=== PATIENT | male | born 1970 | race Caucasian/White ===

== ENCOUNTER 2021-03-15 13:12 | Emergency (ER) | payer OTHER, SELFPAY ==
--- NOTE | ~2021-03-15 | XR_ITS ---
EXAMINATION: XR CHEST CLINICAL INFORMATION: Cough COMPARISON: Chest radiographs 02/11/2011, 10/05/2010 TECHNIQUE: Frontal view of the chest was obtained. FINDINGS: There is no lobar or segmental airspace consolidation or definite groundglass opacity. Bronchovascular markings right infrahilar region appears similar to prior studies. The costophrenic angles are well defined. The heart is normal in size. The vascularity is normal. No acute bony abnormality. XR/XR chest 1V IMPRESSION: Unremarkable examination.
[2021-03-15 13:58] VITALS: BP 119/81; PULSE 65; RESP 18; TEMP 36.8; O2SAT 98; BMI 27.6
--- NOTE | 2021-03-15 15:06 | ED.GENADULT ---
HPI - General Adult General Chief complaint: General Medical Stated complaint: cp Time Seen by Provider: 03/15/21 15:06 Source: patient Mode of arrival: ambulatory Limitations: no limitations History of Present Illness HPI narrative: patient states 2 weeks ago he developed a URI and now producing a lot of phlegm. He also has upper back pain. He states his sputum is green with slight blood. Patient vaccinated against COVID but not influenza. Onset (ago): week(s) Severity: mild Pain Consistency: intermittent Associated symptoms: denies other symptoms Related Data Previous Rx's Medication Instructions Recorded cyclobenzaprine 10 mg tablet 10 mg PO TID #10 tab 03/15/21 naproxen 500 mg tablet (Naprosyn) 500 mg PO BID #20 tab 03/15/21 Allergies Allergy/AdvReac Type Severity Reaction Status Date / Time No Known Allergies Allergy Verified 03/15/21 13:57 Review of Systems Constitutional: Constitutional: Reports no additional constitutional complaints Eyes: Eyes: Reports no additional eye complaints ENT: Denies dizziness Cardiovascular: Cardiovascular: Reports no additional cardiovascular complaints Respiratory: Respiratory: Reports as per HPI Gastrointestinal: Gastrointestinal: Reports no additional gastrointestinal complaints Musculoskeletal: Musculoskeletal: Reports no additional musculoskeletal complaints Integumentary/Breasts: Skin/Breast: Denies rash Neurologic: Reports system reviewed and no additional complaints, except as documented, Denies dizziness and Denies Sensory deficit (Neuro) Psychiatric: Psychiatric: Denies anxiety PMFSH Past Medical History Medical History Asthma Back pain GERD (gastroesophageal reflux disease) H/O: Sam's palsy Social History Social History Advance Directives: No Advance Directives Information Provided: Yes Physical Exam Vital Signs: Vital Signs: Last Vital Signs Temp 98.3 F 03/15/21 13:58 Pulse 65 03/15/21 13:58 Resp 18 03/15/21 13:58 BP 119/81 03/15/21 13:58 Pulse Ox 98 03/15/21 13:58 Body Mass Index 27.6 Const: General: healthy appearing Nutritional Appearance: average body habitus Orientation/consciousness: oriented to person and patient oriented x3 Limitations: no limitations HENMT: Head: Yes normal to inspection Ears: external ears normal General nose exam: Normal external nose present Mouth: Normal oral and palatal mucosa present and oropharynx normal Throat: Yes posterior oropharynx normal Eyes: General: appearance normal, both eyes and all related structures Neck: Other: supple, left trapezius tenderness Chest: Chest palpation & inspection: normal inspection of the chest Resp: Auscultation: clear to auscultation bilaterally Cardio: Jugular venous distension: no JVD Rate: regular rate Rhythm: regular rhythm Heart sounds: S1 normal heart sound present and S2 normal heart sound present GI: Inspection: Yes normal to inspection Palpation (GI): Soft to palpation, nontender and No hepatosplenomegaly present Auscultation: normal bowel sounds : General: Yes no CVA tenderness Back/Spine/Pelvis: Back: no CVA tenderness Skin: General skin exam: no rashes or lesions noted Neuro: General: oriented to person and patient oriented x3 Cranial nerves: Yes CN's II-XII intact bilaterally Motor exam (neuro): 5/5 motor strength present throughout Sensory Exam: No Sensory deficit (Neuro) Extrem: General: Yes normal to inspection Psych: Appearance: grossly normal Course Reevaluation(s) Reevaluation #1: patient with viral illness and left trapezius strain, COVID negative, xray negative will dc home Time: 16:49 Medical Decision Making Lab Data Labs: Lab Results 03/15/21 Range/Units 15:19 COVID-19 ([facility]) Negative (Negative) COVID-19 Clin Com See Note Imaging Data Chest x-ray: Radiologist's impression: FINDINGS: There is no lobar or segmental airspace consolidation or definite groundglass opacity. Bronchovascular markings right infrahilar region appears similar to prior studies. The costophrenic angles are well defined. The heart is normal in size. The vascularity is normal. No acute bony abnormality. XR/XR chest 1V IMPRESSION: Unremarkable examination. ? ECG Data Attestation: I personally reviewed and interpreted this ECG as follows: Interpretation: normal sinus rate [address] or twave changes Discharge Plan Discharge Clinical Impression: Upper respiratory infection Qualifiers: URI type: unspecified viral URI Qualified Code(s): J06.9 - Acute upper respiratory infection, unspecified Neck muscle strain Qualifiers: Encounter type: initial encounter Qualified Code(s): S16.1XXA - Strain of muscle, fascia and tendon at neck level, initial encounter Patient Disposition: Home, Self-Care Instructions: Cervical Strain (ED), Upper Respiratory Infection (ED) Prescriptions: New cyclobenzaprine 10 mg tablet 10 mg PO TID Qty: 10 RF: 0 naproxen [Naprosyn] 500 mg tablet 500 mg PO BID Qty: 20 RF: 0 Referrals: Hina Evans MD [Primary Care Provider] - 1 week
--- NOTE | 2021-03-15 15:14 | ECG_ITS ---
Test Reason : GENERAL MED Blood Pressure : / mmHG Vent. Rate : 056 BPM Atrial Rate : 056 BPM P-R Int : 148 ms QRS Dur : 096 ms QT Int : 420 ms P-R-T Axes : 054 041 034 degrees QTc Int : 405 ms Sinus bradycardia Otherwise normal ECG When compared with ECG of 05-OCT-2010 20:50, No significant change was found Referred By: Henry Russo Electronically Signed By:RONAK RODRIGUEZ MD
[2021-03-15 15:50] LABS: COVID-19 Test Negative (Negative)
[2021-03-15] MEDS: Ibuprofen 800 MG TABLET PO (16:28)
== END 2021-03-15 17:09 | disposition home or self-care (01) ==
PROVIDERS: Emergency Provider Emergency Medicine; PCP Family Medicine
DX: J06.9 Acute upper respiratory infection, unspecified (principal); S16.1XXA Strain of muscle, fascia and tendon at neck level, initial encounter; X58.XXXA Exposure to other specified factors, initial encounter; Y93.9 Activity, unspecified; Y92.9 Unspecified place or not applicable; Y99.9 Unspecified external cause status; Z20.822 Contact with and (suspected) exposure to COVID-19
CPT/HCPCS: 36415; 71045; 87635; 93005; 99283; 99284

== ENCOUNTER 2023-05-26 12:12 | Outpatient (REF) | payer OTHER, SELFPAY ==
[2023-05-26 13:29] LABS: Estimated Average Glucose 114 mg/dL; Hemoglobin A1c % 5.6 % (<6.0)
[2023-05-26 14:32] LABS: Alanine Aminotransferase 33 U/L (0-40); Albumin Level 4.5 g/dL (3.5-5.0); Alkaline Phosphatase 54 U/L (39-117); Anion Gap 13 (12-20); Aspartate Amino Transferase 22 U/L (5-37); Bilirubin Total 0.4 mg/dL (0.0-1.0); Blood Urea Nitrogen 14 mg/dL (9-16); Calcium 9.8 mg/dL (8.4-10.2); Carbon Dioxide 29 mmol/L (22-29); Chloride 104 mmol/L (96-108); Cholesterol 156 mg/dL (<200); Estimated Glomerular Filt Rate > 60; Glucose Random 97 mg/dL (60-115); HDL Cholesterol 49 mg/dL (>40); LDL Cholesterol Calculated 65 mg/dL (<100); Potassium 4.2 mmol/L (3.3-5.1); Sodium 142 mmol/L (135-145); Total Protein 7.5 g/dL (6.5-8.0); Triglycerides 213 mg/dL (<150)
[2023-05-26 14:48] LABS: Reflex LDLD? No
[2023-05-26 14:51] LABS: TSH reflex Free T4 2.87 uIU/mL (0.32-4.0); Vitamin D 25-OH Total 21.9 ng/mL (>30)
== END 2023-05-26 12:13 | disposition home or self-care (01) ==
LOC: HO.HHCL 12:12
PROVIDERS: Visit Provider Family Medicine
DX: I10 Essential (primary) hypertension (principal); R73.03 Prediabetes; E55.9 Vitamin D deficiency, unspecified; M54.50 Low back pain, unspecified; G89.29 Other chronic pain
CPT/HCPCS: 36415; 80053; 80061; 82306; 83036; 84443

== ENCOUNTER 2024-02-10 10:13 | Outpatient (REF) | payer OTHER, SELFPAY ==
[2024-02-10 12:05] LABS: Alanine Aminotransferase 55 U/L (0-40); Albumin Level 4.4 g/dL (3.5-5.0); Alkaline Phosphatase 51 U/L (39-117); Anion Gap 13 (12-20); Aspartate Amino Transferase 33 U/L (5-37); Bilirubin Total 0.7 mg/dL (0.0-1.0); Blood Urea Nitrogen 17 mg/dL (9-16); Calcium 9.6 mg/dL (8.4-10.2); Carbon Dioxide 26 mmol/L (22-29); Chloride 106 mmol/L (96-108); Cholesterol 191 mg/dL (<200); Estimated Glomerular Filt Rate > 60; Glucose Random 105 mg/dL (60-115); HDL Cholesterol 52 mg/dL (>40); LDL Cholesterol Calculated 96 mg/dL (<100); Potassium 3.8 mmol/L (3.3-5.1); Sodium 141 mmol/L (135-145); Total Protein 7.2 g/dL (6.5-8.0); Triglycerides 215 mg/dL (<150)
[2024-02-10 12:11] LABS: Estimated Average Glucose 117 mg/dL; Hemoglobin A1C 151.5033 umol/L; Hemoglobin A1c % 5.7 % (<6.0); Total Hemoglobin (HGBA1C) 3870.3062 umol/L
[2024-02-10 12:53] LABS: Hepatitis A Antibody IgG REACTIVE (Nonreactive); ~Hepatitis A Antibody IgG 5.73 S/CO (0.00-0.99)
[2024-02-10 12:57] LABS: ~Hepatitis B Surface Antibody NONREACTIVE (Nonreactive)
[2024-02-10 13:36] LABS: Reflex LDLD? No
== END 2024-02-10 10:14 | disposition home or self-care (01) ==
LOC: HO.HHCL 10:13
PROVIDERS: Visit Provider Family Medicine
DX: I10 Essential (primary) hypertension (principal); E78.5 Hyperlipidemia, unspecified; R73.03 Prediabetes
CPT/HCPCS: 36415; 80053; 80061; 83036; 86706; 86708

== ENCOUNTER 2024-03-31 08:58 | Emergency (ER) | payer OTHER, SELFPAY ==
--- NOTE | ~2024-03-31 | CT_ITS ---
EXAMINATION: CT MASTOID WITHOUT CONTRAST CLINICAL INFORMATION: Left mastoid pain with otitis COMPARISON: None TECHNIQUE: Multidetector CT acquisition of the temporal bones is obtained without contrast. Multiplanar reformats are acquired and utilized for image interpretation. This CT examination was performed using dose optimization techniques as appropriate, variously including the following: *Automated exposure control *Adjustment of mA and/or kV according to patient size (this includes techniques or standardized protocols for targeted exams where dose is matched to indication/reason for exam; i.e. extremities or head) *Use of iterative reconstruction technique FINDINGS: Right: The pinna is present. The external auditory canal is clear. The tympanic membrane is unremarkable. The Prussak space is not enlarged. The scutum is intact. The ossicular chain is intact. The mastoid air cells are clear. The inner ear structures including the cochlea, vestibule, and semicircular canals are unremarkable. There is no widening of the vestibular or cochlear aqueducts. The internal auditory canal appear unremarkable. The cranial nerve VII follows a normal course. Left: The pinna is present. The external auditory canal is clear. There is slight retraction of the tympanic membrane. Soft tissue density opacifying the left middle ear and extending into the mastoid air cells and the epitympanum, surrounding the ossicles which remains intact. The mastoid septations remaining intact. There is thinning and dehiscence of the tegmen tympani. The Prussak space is also opacified however not enlarged. The scutum remains intact. The inner ear structures including the cochlea, vestibule, and semicircular canals are unremarkable. There is no widening of the vestibular or cochlear aqueducts. The internal auditory canal appear unremarkable. The cranial nerve VII follows a normal course. Normal temporomandibular joints. CT/CT mastoid IMPRESSION: Findings most consistent with left otomastoiditis. There is thinning and dehiscence of the tegmen tympani. Electronically signed by: Apurva Flood MD 03/31/2024 04:42 PM EST
[2024-03-31 09:04] VITALS: BP 177/112; PULSE 101; RESP 18; TEMP 36.2; O2SAT 95; BMI 32.6
--- NOTE | 2024-03-31 09:39 | PC.NURSE ---
Patient arrived from home with complaints of right sided ear pain and pressure. was dx with ear infection at [facility] last week and took po abt. Patient reports that he completed dose but then this weekend was at the store and become dizzy , vomited, and had diarrhea. Was brought to [facility] and had a full stroke work up including ct and mri. 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 When asked if it was for [place] palsey patient states yes. CT at [facility] shoed something was wrong with his nose and he needs to see an ENT. Currently denies dizziness, or pain. took tylenol this am with good effect.
[2024-03-31 14:00] VITALS: BP 142/90; PULSE 84; RESP 18; TEMP 37.1; O2SAT 96
--- NOTE | 2024-03-31 14:01 | ED.EAR ---
HPI - Ear Problem General Chief complaint: Ear Problems Stated complaint: Ear ache, facial numbness Time Seen by Provider: 03/31/24 13:44 Source: patient Mode of arrival: ambulatory Limitations: no limitations History of Present Illness ED Provider: Dr. Corry García HPI Narrative: Patient comes to the emergency room complaining of left-sided facial droop, left ear pain. Patient states that about a 10 days ago, he was diagnosed with a left ear infection. Then, 4 days ago, patient had ongoing left ear pain, dizziness, tinnitus, nausea and vomiting. Patient called 911, was taken to [facility]. Patient was worked up for a CVA. Patient states that it did both CT scans and MRIs and both were negative for stroke. Patient was not discharged home. Patient states that this morning, patient noted that he has left-sided facial droop. Patient is still complaining of ongoing and worsening left-sided ear pain and pain behind the left ear. Related Data Previous Rx's ?Medication ?Instructions ?Recorded cyclobenzaprine 10 mg tablet 10 mg PO TID #10 tabs 03/15/21 naproxen 500 mg tablet (Naprosyn) 500 mg PO BID #20 tabs 03/15/21 clindamycin HCl 150 mg capsule 150 mg PO TID 10 days #30 caps 03/31/24 clindamycin HCl 300 mg capsule 300 mg PO TID 10 days #30 caps 03/31/24 ibuprofen 600 mg tablet 600 mg PO TID PRN fever or pain 03/31/24 #30 tabs prednisone 20 mg tablet 60 mg (3 x 20 mg) PO DAILY 10 days 03/31/24 #30 tabs Allergies Allergy/AdvReac Type Severity Reaction Status Date / Time No Known Allergies Allergy Verified 03/31/24 09:12 Review of Systems Review of Systems: Constitutional : No Weight loss, No Fever, No Chills, No Night Sweats, No Fatigue, No Malaise ENT/Mouth : No Hearing loss, complaining of left-sided Ear Pain, No Nasal Congestion, No Sinus Pain, No Hoarseness, No sore throat, No Rhinorrhea, No Swallowing Difficulty Eyes: No Eye Pain, No Swelling, No Redness, No Foreign Body, No Discharge, No Vision Changes Cardiovascular : No Chest Pain, No SOB, No Dyspnea on Exertion, No Orthopnea, No Edema, No Palpitations Respiratory : No Cough, No Sputum, No Wheezing, No Smoke Exposure, No Dyspnea Gastrointestinal : No Nausea, No Vomiting, No Diarrhea, No Constipation, No abdominal Pain, No Hematochezia, No Melena Genitourinary : no irregular bleeding, No Dysuria, No Urinary Frequency, No Hematuria, No Urinary Incontinence, No Urgency, No Flank Pain, No Urinary Flow Changes, No Hesitancy Musculoskeletal : No joint pain, No Myalgias, No Joint Swelling Skin : No Skin Lesions, No rash Neuro : No Weakness, No Numbness, No Paresthesias, No Loss of Consciousness, No Dizziness, No Headache, complaining of SI symmetric smile on the left Psych : No Anxiety/Panic, No Depression, No SI/HI/AH/VH, No Social Issues, Heme/Lymph: No Bruising, No Bleeding,No Lymphadenopathy Endocrine : No Polyuria, No Polydipsia, No Temperature Intolerance [facility] Past Medical History Medical History H/O: Sam's palsy Back pain GERD (gastroesophageal reflux disease) Asthma Social History Social History Smoked in Last 30 Days: No Use of substances other than those prescribed or required for medical reasons: No Advance Directives: No Advance Directives Information Provided: Yes Physical Exam Vital Signs: Vital Signs: Last Vital Signs Temp 98.2 F 03/31/24 18:15 Pulse 77 03/31/24 18:15 Resp 18 03/31/24 18:15 BP 136/93 H 03/31/24 18:15 Pulse Ox 96 03/31/24 18:15 O2 Del Method Room Air 03/31/24 18:15 BMI result Body Mass Index 32.6 Const: Other: Appearance: Alert. Oriented X3. No acute distress. Eyes: Pupils equal, round and reactive to light. ENT: Pharynx normal. Left ear erythematous tympanic membrane, no rupture. Pain to palpation on the mastoid bone on the left Neck: Normal inspection. Neck supple. No lymph nodes noted. No crepitus CVS: Normal heart rate and rhythm. Pulses normal. Normal S1 and S2 Respiratory: No respiratory distress. Breath sounds normal. No Wheezing. No rales Abdomen: Soft and nontender. No rigidity. No distention. Skin: Skin warm and dry. Normal skin color. Normal skin turgor. Extremities: No lower extremity edema. No Lacerations. No Rash Neuro: Oriented X 3. Patient has left-sided mouth droop, unable to fully close his left eye, unable to move his left eyebrow or found the forehead on the left Psych: calm, cooperative, normal affect Medications Administered Discontinued Medications Generic Name Dose Route Start Last Admin Trade Name Jonesq PRN Reason Stop Dose Admin Amoxicillin/Clavulanate Potassium 500 mg 03/31/24 13:57 03/31/24 14:16 Amoxicillin/Potassium Clav 500 Mg Tablet PO 03/31/24 13:58 500 mg ONCE ONE Administration Clindamycin Phosphate 600 mg in 50 mls @ 100 mls/hr 03/31/24 17:22 03/31/24 18:33 Cleocin IV 03/31/24 17:51 Infused ONCE ONE Infusion Ketorolac Tromethamine 30 mg 03/31/24 17:22 03/31/24 17:46 Ketorolac Tromethamine 30 Mg/Ml Vial IVPUSH 03/31/24 17:23 30 mg ONCE ONE Administration Prednisone 60 mg 03/31/24 13:57 03/31/24 14:15 Prednisone 20 Mg Tablet PO 03/31/24 13:58 60 mg ONCE ONE Administration Valacyclovir HCl 1,000 mg 03/31/24 13:57 03/31/24 14:15 Valacyclovir Hcl 1,000 Mg Tablet PO 03/31/24 13:58 1,000 mg ONCE ONE Administration Medical Decision Making Medical Decision Making MDM Narrative: -I discussed with the patient that 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 Patient states that several years ago he had Sam's palsy on the right side. Also, patient has ongoing otitis media. Now complaining of pain in the mastoid bone, CT scan pending -patient was given p.o. prednisone, Augmentin and balance acyclovir -CT scan report shows findings most consistent with left otomastoiditis. There is a thinning and adhesions of the tegment tympani -patient was given 600 mg of IV clindamycin -I discussed the patient with Dr. Miller from [facility] who reviewed the patient's imaging. The CT scan is definitely abnormal, however unclear if if this is true mastoiditis, neoplasm is in the differential . Recommendations: No need for transfer, extremely important that the patient takes prednisone 60 mg daily for 10 days, clindamycin. Patient will receive a phone call on Friday , 2 days from today to confirm his appointment, likely to be seen early next week. Develops passively is likely related to the inflammation from the bacterial infection, antiviral/valacyclovir not indicated -I discussed the above-mentioned with the patient, patient agrees with plan. Differential Diagnosis Differential Diagnoses: The differential diagnosis associated with the presentation includes (Otitis media) Admission/Observation Consideration of admission/observation: Escalation of care including admission/observation considered Consult Healthcare Provider Management of the patient was discussed with: Recreation Program Coordinator Lab Data MDM Lab Attestation statement: I reviewed the patient's lab results. 03/31/24 17:42 03/31/24 17:42 Labs: Lab Results 03/31/24 03/31/24 Range/Units 17:42 17:53 WBC 8.3 (4.8-10.8) X10*3/uL RBC 5.49 (4.60-5.80) X10*6/uL Hgb 16.3 (14.0-18.0) g/dl Hct 46.8 (42.0-52.0) % MCV 85.2 (80.0-98.0) fL MCH 29.7 (27.0-33.0) pg MCHC 34.8 (31.0-36.0) g/dl RDW 13.0 (11.0-16.0) % Plt Count 241 (160-400) X10*3/uL MPV 9.2 L (9.4-12.4) fL Immature Gran % (Auto) 0.2 (0.0-0.4) % Neut % (Auto) 80.9 H (45-73) % Lymph % (Auto) 17.0 L (20-40) % Chase % (Auto) 1.4 L (2-11) % Eos % (Auto) 0.1 (0-4) % Baso % (Auto) 0.4 (0-2) % Lymph # (Auto) 1.4 (1.2-4.9) X10*3/uL Chase # (Auto) 0.1 (0.1-1.2) X10*3/uL Eos # (Auto) 0.0 (0.0-0.4) X10*3/uL Baso # (Auto) 0.0 (0.0-0.2) X10*3/uL Abs Immat Gran (auto) 0.02 (0.00-0.03) X10*3/uL Absolute Neuts (auto) 6.7 (2.0-8.3) x10*3/uL Absolute Nucleated RBC 0.000 (0.0-0.012) X10*3/uL Nucleated RBC % (auto) 0.0 (0.0-0.2) /100WBC ESR 12 (0-15) MM/HR Sodium 139 (135-145) mmol/L Potassium 4.4 (3.3-5.1) mmol/L Chloride 102 (96-108) mmol/L Carbon Dioxide 24 (22-29) mmol/L Anion Gap 17 (12-20) BUN 14 (9-16) mg/dL Creatinine 1.00 (0.5-1.4) mg/dL Estim Creat Clear Calc 82.5 Estimated GFR > 60 Random Glucose 118 H (60-115) mg/dL Lactic Acid 1.8 (0.5-2.0) mmol/L Calcium 9.7 (8.4-10.2) mg/dL Total Bilirubin 0.7 (0.0-1.0) mg/dL Direct Bilirubin 0.2 (0.0-0.5) mg/dL AST 60 H (5-37) U/L ALT 69 H (0-40) U/L Alkaline Phosphatase 57 (39-117) U/L C-Reactive Protein 0.59 H (< or = 0.50) mg/dL Total Protein 7.9 (6.5-8.0) g/dL Albumin 4.4 (3.5-5.0) g/dL COVID-19 ([facility]) Negative (Negative) COVID-19 Clin Com See Note Influenza Type A ([facility]) Negative (Negative) Influenza Type B ([facility]) Negative (Negative) Influenza A & B Note See Note Independent Interpretation I performed an independent interpretation of an: CT Scan Radiology Impression Discussion of test interpretation with radiology: I have reviewed the radiologist's reading. Radiologist Impression: Multidetector CT acquisition of the temporal bones is obtained without contrast. Multiplanar reformats are acquired and utilized for image interpretation. This CT examination was performed using dose optimization techniques as appropriate, variously including the following: *Automated exposure control *Adjustment of mA and/or kV according to patient size (this includes techniques or standardized protocols for targeted exams where dose is matched to indication/reason for exam; i.e. extremities or head) *Use of iterative reconstruction technique FINDINGS: Right: The pinna is present. The external auditory canal is clear. The tympanic membrane is unremarkable. The Prussak space is not enlarged. The scutum is intact. The ossicular chain is intact. The mastoid air cells are clear. The inner ear structures including the cochlea, vestibule, and semicircular canals are unremarkable. There is no widening of the vestibular or cochlear aqueducts. The internal auditory canal appear unremarkable. The cranial nerve VII follows a normal course. Left: The pinna is present. The external auditory canal is clear. There is slight retraction of the tympanic membrane. Soft tissue density opacifying the left middle ear and extending into the mastoid air cells and the epitympanum, surrounding the ossicles which remains intact. The mastoid septations remaining intact. There is thinning and dehiscence of the tegmen tympani. The Prussak space is also opacified however not enlarged. The scutum remains intact. The inner ear structures including the cochlea, vestibule, and semicircular canals are unremarkable. There is no widening of the vestibular or cochlear aqueducts. The internal auditory canal appear unremarkable. The cranial nerve VII follows a normal course. Normal temporomandibular joints. CT/CT mastoid IMPRESSION: Findings most consistent with left otomastoiditis. There is thinning and dehiscence of the tegmen tympani. Critical Care Time Critical Care Time Critical Care Time: Yes Total Critical Care Time: 75 Attestation: I have personally provided critical care time. Time includes review of lab data, radiology results, discussion with consultants, and monitoring for potential decompensation. Intervention performed as documented. Discharge Plan Discharge Clinical Impression: Otitis media, Sam's palsy Patient Disposition: Home, Self-Care Instructions: Sam Palsy (ED), Ear Infection (ED) Additional Instructions: Please follow-up with your primary care physician tomorrow. At night, make sure that you use tape to help your left eye to stay closed. You may remove the tape in the morning. If you have any worsening or new symptoms, please return to the emergency room or call 911 Prescriptions: New clindamycin HCl 300 mg capsule 300 mg PO TID 10 Days Qty: 30 0RF Rx Instructions: 450 mg t.i.d. clindamycin HCl 150 mg capsule 150 mg PO TID 10 Days Qty: 30 0RF Rx Instructions: totaal 450 mg tid prednisone 20 mg tablet 60 mg PO DAILY 10 Days Qty: 30 0RF ibuprofen 600 mg tablet 600 mg PO TID PRN (Reason: fever or pain) Qty: 30 0RF No Action cyclobenzaprine 10 mg tablet 10 mg PO TID Qty: 10 0RF naproxen [Naprosyn] 500 mg tablet 500 mg PO BID Qty: 20 0RF Interventions: ED Discharge Assessment Last Done: 03/31/24 18:15 Print Language: Israeli
[2024-03-31] MEDS: valACYclovir HCL 1,000 MG TABLET 1000 MG PO (14:15)
[2024-03-31] MEDS: predniSONE 20 MG TABLET 60 MG PO (14:15)
[2024-03-31] MEDS: Amoxicillin/Potassium Clav 500 MG TABLET PO (14:16)
[2024-03-31 16:25] VITALS: BP 139/87; PULSE 81; RESP 17; TEMP 36.8; O2SAT 97
[2024-03-31] MEDS: Ketorolac Tromethamine 30 MG/ML VIAL IVPUSH (17:46)
[2024-03-31 17:49] LABS: MANUAL DIFF FLAG NO
[2024-03-31 17:50] VITALS: BP 136/93; PULSE 77; RESP 18; TEMP 36.8; O2SAT 96
[2024-03-31 17:50] LABS: Basophils Percent Auto 0.4 % (0-2); Eosinophils Percent Auto 0.1 % (0-4); Hematocrit 46.8 % (42.0-52.0); Hemoglobin 16.3 g/dl (14.0-18.0); Imm Gran Abs Auto 0.02 X10*3/uL (0.00-0.03); Imm Gran Pct Auto 0.2 % (0.0-0.4); Lymphocytes Absolute Auto 1.4 X10*3/uL (1.2-4.9); Mean Corpuscular HGB Conc 34.8 g/dl (31.0-36.0); Mean Corpuscular Hemoglobin 29.7 pg (27.0-33.0); Mean Corpuscular Volume 85.2 fL (80.0-98.0); Mean Platelet Volume 9.2 fL (9.4-12.4); Monocytes Absolute Auto 0.1 X10*3/uL (0.1-1.2); Monocytes Percent Auto 1.4 % (2-11); Neutrophils Absolute Auto 6.7 x10*3/uL (2.0-8.3); Neutrophils Percent Auto 80.9 % (45-73); Platelet Count 241 X10*3/uL (160-400); Red Blood Count 5.49 X10*6/uL (4.60-5.80); White Blood Count 8.3 X10*3/uL (4.8-10.8)
[2024-03-31] MEDS: Clindamycin Phosphate/D5W 600 MG/50 ML PIGGYBACK 100 MG IV (17:54)
--- NOTE | 2024-03-31 17:57 | PC.NURSE ---
20g iv placed in right ac, medicated per mar
[2024-03-31 17:59] LABS: Anion Gap 17 (12-20)
[2024-03-31 18:01] LABS: Lactic Acid 1.8 mmol/L (0.5-2.0)
[2024-03-31 18:03] LABS: Alanine Aminotransferase 69 U/L (0-40); Albumin Level 4.4 g/dL (3.5-5.0); Aspartate Amino Transferase 60 U/L (5-37); Bilirubin Direct 0.2 mg/dL (0.0-0.5); Bilirubin Total 0.7 mg/dL (0.0-1.0); Blood Urea Nitrogen 14 mg/dL (9-16); C Reactive Protein 0.59 mg/dL (< or = 0.50); Calcium 9.7 mg/dL (8.4-10.2); Carbon Dioxide 24 mmol/L (22-29); Chloride 102 mmol/L (96-108); Creatinine Clr Calc Pharmacy 82.5; Estimated Glomerular Filt Rate > 60; Glucose Random 118 mg/dL (60-115); Potassium 4.4 mmol/L (3.3-5.1); Sodium 139 mmol/L (135-145); Total Protein 7.9 g/dL (6.5-8.0)
--- NOTE | 2024-03-31 18:07 | PC.NURSE ---
Patient NPO, patient aware
[2024-03-31 18:15] VITALS: BP 136/93; PULSE 77; RESP 18; TEMP 36.8; O2SAT 96
[2024-03-31 18:16] LABS: Alkaline Phosphatase 57 U/L (39-117)
[2024-03-31 18:19] LABS: COVID-19 Test Negative (Negative); IDNOW Serial# 08D9AD1C; IDNOW Serial# 9DB6401D; Influenza A Negative (Negative); Influenza B2 Negative (Negative)
[2024-03-31 18:31] LABS: Erythrocyte Sedimentation Rate 12 MM/HR (0-15)
== END 2024-03-31 20:02 | disposition home or self-care (01) ==
PROVIDERS: Emergency Provider Emergency Medicine; PCP Family Medicine
DX: H66.92 Otitis media, unspecified, left ear (principal); G51.0 Bell's palsy; H92.02 Otalgia, left ear; Z03.818 Encounter for observation for suspected exposure to other biological agents ruled out; J45.909 Unspecified asthma, uncomplicated
CPT/HCPCS: 36415; 70481; 80048; 80076; 83605; 85025; 85652; 86140; 87040; 87502; 87635; 96365; 96375; 99284; J0736; J1885

== ENCOUNTER 2024-05-12 12:09 | Outpatient (REF) | payer OTHER, SELFPAY ==
[2024-05-12 13:38] LABS: Alanine Aminotransferase 78 U/L (0-40); Albumin Level 4.4 g/dL (3.5-5.0); Alkaline Phosphatase 54 U/L (39-117); Anion Gap 15 (12-20); Aspartate Amino Transferase 41 U/L (5-37); Bilirubin Direct 0.2 mg/dL (0.0-0.5); Bilirubin Total 0.7 mg/dL (0.0-1.0); Blood Urea Nitrogen 15 mg/dL (9-16); Calcium 9.5 mg/dL (8.4-10.2); Carbon Dioxide 27 mmol/L (22-29); Chloride 107 mmol/L (96-108); Cholesterol 128 mg/dL (<200); Estimated Glomerular Filt Rate > 60; Glucose Random 105 mg/dL (60-115); HDL Cholesterol 49 mg/dL (>40); LDL Cholesterol Calculated 43 mg/dL (<100); Potassium 3.6 mmol/L (3.3-5.1); Sodium 145 mmol/L (135-145); Total Protein 7.2 g/dL (6.5-8.0); Triglycerides 182 mg/dL (<150)
== END 2024-05-12 12:10 | disposition home or self-care (01) ==
LOC: HO.HHCL 12:09
PROVIDERS: Visit Provider Family Medicine
DX: E78.5 Hyperlipidemia, unspecified (principal); I10 Essential (primary) hypertension
CPT/HCPCS: 36415; 80048; 80061; 80076

== ENCOUNTER 2024-07-16 13:48 | Outpatient (REF) | payer OTHER, SELFPAY ==
--- OUTSIDE RECORDS SUMMARY | 2024-07-16 15:33 | XMS_ITS | Encounter Summary ---
Author Organization [employer] Address [address] [facility] [address] [place] [address] Care Team Providers Care Bag Cutter Name Role Phone Hina Evans MD Primary Care Provider [phone] John Hartley PharmD Unavailable [phone] Encounter Details Date Type Department Care Team ([facility] Contact Info) Description 03/13/2023 Orders Only [facility] PEDS [address] [place] [address] Nicole Fitzpatrick LPN Social History Tobacco Use Types Packs/Day Years Used Date Smoking Tobacco: Every Day Cigarettes Smokeless Tobacco: Never Comments:1 box can last him between 24 hours or 3 days. Alcohol Use Standard Drinks/Week Comments Never 0 (1 standard drink = 0.6 oz pur e alcohol) Sex and Gender Information Value Date Recorded Sex Assigned at Male 2022 10:19 AM EDT Legal Sex Male 10:19 AM EDT Gender Identity Male 2022 10:19 AM EDT Sexual Orientation Straight 2022 10 :19 AM EDT documented as of this encounter Plan of Treatment Upcoming Encounters Date Type Department Care Team (Late Contact Info) Description 07/21/2024 10:00 AM EDT Nurse Only [facility] MEDICINE [address], [place] [phone] 01/21/2025 1:00 PM EDT Medication Management [facility] MEDICINE [address], [place] [phone] John Hartley, PharmD [address] [place] [address] documented as of this encounter Visit Diagnoses Not on filedocumented in this encounter Care Teams Bag Cutter Relationship Specialty Start Date End Date Hina Evans MD [address], [place] [phone] PCP - General Family Medicine 05/05/18 John Hartley PharmD [address] [place] [address] Pharmacist Internal Medicine 09/10/23 documented as of this encounter
--- OUTSIDE RECORDS SUMMARY | 2024-07-16 15:33 | XMS_ITS | Encounter Summary ---
Author Organization [employer] Address 75 [facility] 7t [place] [address] Care Team Providers Care Envelope Press Operator Name Role Phone Hina Evans MD Primary Care Provider John Hartley PharmD Unavailable [phone] Encounter Details Date Type Department Care Team ([facility] st Contact Info) Description 06/06/2023 Orders Only [facility] [address] [place], [place] [phone] Hina Evans MD [address] [place], [place] [phone] Social History Tobacco Use Types Packs/Day Years Used Date Smoking Tobacco: Every Day Cigarettes Smokeless Tobacco: Never Comments:1 box can last him between 24 hours or 3 days. Alcohol Use Standard Drinks/Week Comments Not Currently 0 (1 standard drink = 0.6 oz pur e alcohol) oca Housing Stability Answer Date Recorded What is your housing situation today? I have shaji david 05/26/[address] you li ve. Do you have problems with any of the following? None of the above 05/26/2023 Food Insecurity Answer Date Recorded Within the past 12 months, y ou worried that your food would run out before you got money to buy more: Never True 05/26/2023 Within the past 12 months,th e food you bought just didn't last and you didn't have enough money to get more: Never True Transportation Answer Date Recorded In the past 12 months, has l ack of transportation kept you from medical appts, meetings, work or from getting things needed for daily living? No 05/26/2023 Utilities Answer Date Recorded In the past 12 months, has t he electric, gas, oil or water company threatened to shut off services in your home? No 05/26/2023 Depression Answer Date Recorded Patient Health Questionnaire-2 Score 0 05/26/2023 Sex and Gender Information Value Date Recorded Sex Assigned at Male 2022 10:19 AM EDT Legal Sex Male 10:19 AM EDT Gender Identity Male 2022 10:19 AM EDT Sexual Orientation Straight 2022 10 :19 AM EDT documented as of this encounter Plan of Treatment Upcoming Encounters Date Type Department Care Team (Late st Contact Info) Description 07/21/2024 10:00 AM EDT Nurse Only [facility] [address] [place] [address] 01/21/2025 1:00 PM EDT Medication Management [address] [address] John Hartley, PharmD [address] [place] [address] documented as of this encounter Visit Diagnoses Not on filedocumented in this encounter Care Teams Envelope Press Operator Relationship Specialty Start Date End Date Hina Evans MD [address] [place] [address] PCP - General Family Medicine 05/05/18 John Hartley, PharmD [address] [place] [address] Pharmacist Internal Medicine 09/10/23 documented as of this encounter
--- OUTSIDE RECORDS SUMMARY | 2024-07-16 15:33 | XMS_ITS | Encounter Summary ---
Author Organization [employer] [facility] Address 75 [facility] 7t [place] [address] Care Team Providers Care Project Economist Name Role Phone Hina Evans MD Primary Care Provider [phone] John Hartley PharmD Unavailable [phone] Reason for Referral * Imaging (Routine) - Closed Specialty Diagnoses / Procedures Referred By Contac t Referred To Contact Cardiology Diagnoses Pain in both lower extremities Claudication (CMS/HCC) Peripheral vascular disease (CMS/HCC) Procedures [facility] Lower Extremity Arterial Duplex Bilateral With Ashlie Hina Evans MD [address] [place] [address] Phone: tel: fax: [address] Phone: tel: fax: Referral ID Status Reason Start Date Expiration Date V isits Requested Visits Authorized [id number] Closed Perform Procedure 08/26/2023 08/25/2024 1 1 Encounter Details Date Type Department Care Team (Late st Contact Info) Description 08/26/2023 Orders Only [facility] [address] [place], [place] [phone] Hina Evans MD [address] [place], [place] [phone] Pain in both lower extremities (Primary Dx); Claudication (CMS/HCC); Peripheral vascular disease (CMS/HCC) Social History Tobacco Use Types Packs/Day Years Used Date Smoking Tobacco: Former Cigarettes Q uit: 06/02/2023 Smokeless Tobacco: Never Comments:1 box can last him between 24 hours or 3 days. Alcohol Use Standard Drinks/Week Comments Not Currently 0 (1 standard drink = 0.6 oz pur e alcohol) oca Depression Answer Date Recorded Patient Health Questionnaire-9 Score 9 07/07/2023 Patient Health Questionnaire-9 Score 9 07/07/2023 Last PHQ-9: Questionnaire Data Not on file 0 07/07/2023 Housing Stability Answer Date Recorded What is [...] Answer Date Recorded Patient Health Questionnaire-2 Score 6 07/07/2023 Sex and Gender Information Value Date Recorded Sex Assigned at Male 2022 10:19 AM EDT Legal Sex Male 10:19 AM EDT Gender Identity Male 2022 10:19 AM EDT Sexual Orientation Straight 2022 10 :19 AM EDT documented as of this encounter Plan of Treatment Upcoming Encounters Date Type Department Care Team (Late st Contact Info) Description 07/21/2024 10:00 AM EDT Nurse Only [facility] [address] [place] [address] 01/21/2025 1:00 PM EDT Medication Management [facility] [address] [place] [address] John Hartley, PharmD [address] [place] [address] documented as of this encounter Visit Diagnoses Diagnosis Pain in both lower extremities- Primary Claudication (CMS/HCC) Unspecified peripheral vascular disease Peripheral vascular disease (CMS/HCC) Unspecified peripheral vascular disease documented in this encounter Additional Health Concerns Assessment Noted Time PHQ-9 Depression Total Score: 9 07/07/19 24 3:03 PM EST documented as of this encounter Care Teams Project Economist Relationship Specialty Start Date End Date Hina Evans MD [address] [place] [address] PCP - General Family Medicine 05/05/18 John Hartley, PharmD [address] [place] [address] Pharmacist Internal Medicine 09/10/23 documented as of this encounter
--- OUTSIDE RECORDS SUMMARY | 2024-07-16 15:33 | XMS_ITS | Encounter Summary ---
Author Organization [employer] Address 75 [facility] 7t [place] [address] Care Team Providers Care Longwall Headgate Operator Name Role Phone Hina Evans MD Primary Care Provider [phone] John Hartley PharmD Unavailable [phone] Reason for Visit * Reason Onset Date Comments Durable Medical Equipment 06/24/2023 Encounter Details Date Type Department Care Team ([facility] st Contact Info) Description 06/24/2023 Telephone [facility] MEDICINE [address] [place], [place] [phone] Hina Evans MD [address] [place], [place] [phone] Durable Medical Equipment Social History Tobacco Use Types Packs/Day Years [...] AM EDT documented as of this encounter Miscellaneous Notes * Telephone Encounter - Hina Evans MD - 07/04/2023 12:15 PM EST sent * Telephone Encounter - Chiquita Odom LPN - 07/02/2023 3:12 PM EST Please review message be;low if Rx is sent to [facility] pharmacy pt can receive with a 0 co pay , please review, * Telephone Encounter - Lincoln Delacruz - 06/24/2023 1:02 PM EST Tc from pt requesting status on Blood Pressure machine discussed in visit with pcp 05/26. Please contact pt at [phone] Libyan Speaker documented in this encounter Plan of Treatment Upcoming Encounters Date Type Department Care Team (Late st Contact Info) Description 07/21/2024 10:00 AM EDT Nurse Only [facility] MEDICINE [address] [place] [address] 01/21/2025 1:00 PM EDT Medication Management [facility] MED[facility]INE [address] [place] [address] John Hartley, PharmD [address] [place] [address] documented as of this encounter Visit Diagnoses Not on filedocumented in this encounter Care Teams Longwall Headgate Operator Relationship Specialty Start Date End Date Hina Evans MD [address] [place] [address] PCP - General Family Medicine 05/05/18 John Hartley, Demarcus [address] [place] [address] Pharmacist Internal Medicine 09/10/23 documented as of this encounter
--- OUTSIDE RECORDS SUMMARY | 2024-07-16 15:33 | XMS_ITS | Encounter Summary ---
Author Organization [employer] Address 75 [facility] 7t [place] [address] Care Team Providers Care Paint Coating Machine Operator Name Role Phone Hina Evans MD Primary Care Provider [phone] John Hartley PharmD Unavailable Reason for Visit * Reason Onset Date Comments Results 05/28/2023 Encounter Details Date Type Department Care Team ([facility] st Contact Info) Description 05/28/2023 Telephone [facility] [address] [place], [place] [phone] Hina Evans MD [address] [place], [place] [phone] Results Social History Tobacco Use Types Packs/Day Years [...] encounter Miscellaneous Notes * Telephone Encounter - Kandace Koenig - 05/28/2023 9:10 AM EST TC from pt requesting call back regarding Results. Type of results: labs Date when done: 05/26 Please contact pt at [phone] (surinamese) documented in this encounter Plan of Treatment Upcoming Encounters Date Type Department Care Team (Late st Contact Info) Description 07/21/2024 10:00 AM EDT Nurse Only [facility] [address] [place] [address] 01/21/2025 1:00 PM EDT Medication Management [facility] [address] [place] [address] John Hartley, PharmArnulfo [address] [place] [address] documented as of this encounter Visit Diagnoses Not on filedocumented in this encounter Care Teams Paint Coating Machine Operator Relationship Specialty Start Date End Date Hina Evans MD [address] [place] [address] PCP - General Family Medicine 05/05/18 John Hartley, PharmD [address] [place] [address] Pharmacist Internal Medicine 09/10/23 documented as of this encounter
--- OUTSIDE RECORDS SUMMARY | 2024-07-16 15:33 | XMS_ITS | Encounter Summary ---
Author Organization [employer] Address 75 [facility] 7t [place] [address] Care Team Providers Care Embroidery Patternmaker Name Role Phone Hina Evans MD Primary Care Provider [phone] Jhon Hartley PharmD Unavailable [phone] Encounter Details Date Type Department Care Team (Late Contact Info) Description 01/09/2023 Orders Only [facility] [address] [place] [address] Ayah Ann LPN Social History Tobacco Use Types Packs/Day [...] Description 07/21/2024 10:00 AM EDT Nurse Only [facility] [address] [place], [place] [phone] 01/21/2025 1:00 PM EDT Medication Management [facility] [address] [place], [place] [phone] John Hartley, PharmD [address] [place] [address] documented as of this encounter Visit Diagnoses Not on filedocumented in this encounter Care Teams Embroidery Patternmaker Relationship Specialty Start Date End Date Hina Evans MD [address] [place], [place] [phone] PCP - General Family Medicine 05/05/18 John Hartley PharmD [address] [place] [address] Pharmacist Internal Medicine 09/10/23 documented as of this encounter
--- OUTSIDE RECORDS SUMMARY | 2024-07-16 15:33 | XMS_ITS | Encounter Summary ---
Author Organization [facility] Address [address] [employer] 7t [place] [address] Care Team Providers Care Sleep Manager Name Role Phone Hina Evans MD Primary Care Provider [phone] John Hartley PharmD Unavailable [phone] Encounter Details Date Type Department Care Team (Late Contact Info) Description 04/04/2023 Orders Only [facility] [address] [place] [address] Hina Evans MD [address] [place] [address] Hypertension, unspecified type (Primary Dx); Asthma with COPD; Chronic low back pain, unspecified back pain laterality, unspecified whether sciatica present; Gastroesophageal reflux disease, unspecified whether esophagitis present; Dyslipidemia Social History Tobacco Use Types Packs/Day Years [...] Upcoming Encounters Date Type Department Care Team ([facility] Contact Info) Description 07/21/2024 10:00 AM EDT Nurse Only [facility] [address] [place] [address] 01/21/2025 1:00 PM EDT Medication Management [facility] [address] [place] [address] John Hartley, PharmD [address] [place] [address] Scheduled Orders Name Type Priority Associated Diagnoses Orde r Schedule Comprehensive Metabolic Panel Lab Routine Hypertension, unspecified type Expected: 04/04/2023 (Approximate), Expires: 04/04/2024 documented as of this encounter Procedures Procedure Name Priority Date/Time Associated Diagnosis Comments LIPID PANEL WITH REFLEX TO DIRECT LDL Routine 02/10/2024 10:15 AM EDT Dyslipidemia documented in this encounter Results * (ABNORMAL) Lipid Panel with Reflex to Direct LDL (02/10/2024 10:15 AM EDT) Triglycerides 215(H) <150 mg/dL [facility] Comment:Desirable Triglyceri de: less than 150 mg/dLBorderline High Triglyceride 150-199 mg/dLHigh Triglyceride: 200-499 mg/dLVery High Triglyceride: greater than or equal to 5OO mg/dL Cholesterol 191 <200 mg/dL [facility] Comment:Desirable Cholestero l: less than 200 mg/dLBorderline High Cholesterol: 200-239 mg/dLHigh Cholesterol: greater than 239 mg/dL LDL Cholesterol Calculated 96 <100 mg/dL [facility] Comment:Desirable LDL: less than 100 mg/dLNear Optimal/Above Optimal LDL: 110- 129 mg/dLBorderline High LDL: 130-159 mg/dLHigh LDL: 160-189 mg/dLVery High LDL: greater than or equal to 190 mg/dL HDL Cholesterol 52 >40 mg/dL [facility] Comment:Desirable HDL: great er than 40 mg/dL Note: This HDL assay may give artificially low results in patients with liver disease. Blood 02/10/2024 10:1 5 AM EDT 02/10/2024 11:35 AM EDT us Hina Evans MD LAB BLOOD ORDERABLES Final Resul t [facility] [address] [place] [address] [phone] documented in this encounter Visit Diagnoses Diagnosis Hypertension, unspecified type- Primary Asthma with COPD ([facility]) Chronic low back pain, unspecified back pain laterality, unspecified whether sciatica present Gastroesophageal reflux disease, unspecified whether esophagitis present Dyslipidemia Other and unspecified hyperlipidemia documented in this encounter Care Teams Sleep Manager Relationship Specialty Start Date End Date Hina Evans MD [address] [place] [address] PCP - General Family Medicine 05/05/18 John Hartley, BrianD [address] [place] [phone] Pharmacist Internal Medicine 09/10/23 documented as of this encounter
--- OUTSIDE RECORDS SUMMARY | 2024-07-16 15:33 | XMS_ITS | Encounter Summary ---
Author Organization [employer] Address 75 [facility] 7t [place] [address] Care Team Providers Care Pivot End Polisher Name Role Phone Hina Evans MD Primary Care Provider [phone] John Hartley PharmD Unavailable Encounter Details Date Type Department Care Team (Latest Contact Info) Description 07/16/2024 Travel Social History Tobacco Use Types Packs/Day Years Used Date Smoking Tobacco: Former Cigarettes Q uit: 06/02/2023 Smokeless Tobacco: Never Comments:1 box can last him between 24 hours or 3 days. Alcohol Use Standard Drinks/Week Comments Not Currently 0 (1 standard drink = 0.6 oz pur e alcohol) oca Depression Answer Date Recorded Patient Health Questionnaire-9 Score 3 02/19/2024 Patient Health Questionnaire-9 Score 3 02/19/2024 Last PHQ-9: Questionnaire Data Not on file 1 Housing Stability Answer Date Recorded What is [...] Answer Date Recorded Patient Health Questionnaire-2 Score 1 02/19/2024 Sex and Gender Information Value Date Recorded Sex Assigned at Male 2022 10:19 AM EDT Legal Sex Male 10:19 AM EDT Gender Identity Male 2022 10:19 AM EDT Sexual Orientation Straight 2022 10 :19 AM EDT documented as of this encounter Plan of Treatment Upcoming Encounters Date Type Department Care Team (Late st Contact Info) Description 07/21/2024 10:00 AM EDT Nurse Only [facility] MEDICINE [address] [place] [address] 01/21/2025 1:00 PM EDT Medication Management [facility] [address] [place] [address] John Hartley PharmD [address] [place] [address] documented as of this encounter Goals Goal Patient Goal Type Associated Problems Recent Progress Patient-Stated? Author Blood Pressure < 140/90 Blood Pressure 131/74( 025 1:29 PM EDT) No John Hartley PharmD documented as of this encounter Visit Diagnoses Not on filedocumented in this encounter Additional Health Concerns Assessment Noted Time PHQ-9 Depression Total Score: 3 02/19/20 24 11:21 AM EDT documented as of this encounter Care Teams Pivot End Polisher Relationship Specialty Start Date End Date Hina Evans MD [address] [place] [address] PCP - General Family Medicine 05/05/18 John Hartley PharmD [address] [place] [address] Pharmacist Internal Medicine 09/10/23 documented as of this encounter
--- OUTSIDE RECORDS SUMMARY | 2024-07-16 15:33 | XMS_ITS | Clinical Summary ---
Author Organization [facility] Address [address] [place] [address] Care Team Providers Care Assistant Elementary Teacher Name Role Phone Unavailable Primary Care Provider Unavailabl e Source Comments PLEASE NOTE, if this patient is a minor, it may be UNLAWFUL to discuss sensitive information that is contained in these records (such as FAMILY PLANNING, MENTAL HEALTH or SUBSTANCE ABUSE) with the minor patient's parent or other person without the patient's specific authorization.[facility] Social History Tobacco Use Types Packs/Day Years Used Date Smoking Tobacco: Never Assessed Social Connections Answer Date Recorded Connectedness 0 01/19/2024 Financial Resource Strain Answer Date R ecorded Financial Resource Strain 0 2023 Stress Answer Date Recorded Stress 0 01/02/2024 Physical Activity Answer Date Recorded Physical Activity 0 01/02/2024 Food Insecurity Answer Date Recorded Food 0 01/30/2024 Transportation Needs Answer Date Record ed Transportation 0 01/02/2024 Housing Stability Answer Date Recorded Housing 0 01/02/2024 Safety and Environment Answer Date Ferdinand rded Safety 0 01/02/2024 Utilities Answer Date Recorded Utilities 0 01/02/2024 Employment Answer Date Recorded Stress 0 01/19/2024 Sex and Gender Information Value Date Recorded Sex Assigned at Not on file Legal Sex Male 6:58 AM PDT Gender Identity Not on file Sexual Orientation Not on file Plan of Treatment Health Maintenance Due Date Last Done Comments Dental Prophy 1969 Hepatitis C Screening 1969 Lipid Screening 1969 Tobacco Screening 1969 Hypertension Screening (#1) 1987 Medicare Annual Wellness Visit 1987 Imm-Hepatitis B (1 of 3 - 19 + 3-dose series) 1988 11/07/2010, 05/08/2010, 02/14/2010 CT Colonography 2014 Colonoscopy 2014 Colorectal Cancer Screening 2014 FIT/gFOBT 2014 Fecal DNA 2014 Flexible Sigmoidoscopy 2014 Imm-Zoster, Recombinant (1 of 2) 2019 Azv-MWPTF-93 ( season) 2024 Alcohol and Drug Screen 05/05/2024 Depression Annual Screen 05/05/2024 Dental BW 02/11/2025 02/10/2024 Dental Examination 02/11/2025 02/10/2024 Dental Perio Charting 02/11/2025 02/10/2024 Diabetes Screening 02/09/2027 02/10/2024, 0 05/26/2023, 05/31/2021, Additional history exists Dental FMX/Pano 02/11/2029 02/10/2024 Imm-DTaP/Tdap/Td (3 - Td or Tdap) 08/19/2033 08/20/2023, 07/29/2013, 10/07/2008 HIV Screening Completed 07/20/2020, 07/20/2020 Imm-Influenza Completed 02/06/2024, 05/06, 05/31/2022, Additional history exists Procedures Procedure Name Priority Date/Time Associated Diagnosis Comments INTRAORAL - COMP SERIES OF RADIOGRAPHIC IMAGES Routine 02/10/2024 1:00 PM EDT Caries Fracture of crown, enamel, and dentin of tooth without pulp exposure Periapical abscess with sinus COMP ORAL EVALUATION - NEW/ESTABLISHED PATIENT Routine 02/10/2024 1:00 PM EDT Caries Fracture of crown, enamel, and dentin of tooth without pulp exposure Periapical abscess with sinus from Last 3 Months or Most Recently Relevant to Health Maintenance Insurance [facility]
--- OUTSIDE RECORDS SUMMARY | 2024-07-16 15:33 | XMS_ITS | Encounter Summary ---
Author Organization [employer] [facility] Address [address] [place] [address] 7 [place] [address] Care Team Providers Care Roadability Machine Operator Name Role Phone Hina Evans MD Primary Care Provider [phone] John Hartley PharmD Unavailable Reason for Referral * Consultation (Routine) - Authorized Specialty Diagnoses / Procedures Referred By Contac t Referred To Contact Pharmacy Diagnoses Primary hypertension Asthma with COPD ([facility]) Hina Evans MD [address] [place] [address] Phone: tel: fax: Referral ID Status Reason Start Date Expiration Date Visits Requested Visits Authorized [id number] Authorized Consult and Treat 02/04/2024 02/03/2025 6 6 * Consultation (Routine) - Authorized Specialty Diagnoses / Procedures Referred By Contac t Referred To Contact Pharmacy Diagnoses Tobacco dependence Hina Evans MD [address] [place] [address] Phone: tel: fax: Referral ID Status Reason Start Date Expiration Date Visits Requested Visits Authorized [id number] Authorized Consult and Treat 02/04/2024 02/03/2025 1 1 Encounter Details Date Type Department Care Team ([facility] st Contact Info) Description 02/04/2024 Orders Only [facility] MEDICINE [address] [place] [address] Hina Evans MD [address] [place] [address] Primary hypertension (Primary Dx); Asthma with COPD (CMS/HCC); Tobacco dependence Social History Tobacco Use Types Packs/Day Years [...] is your housing situation today? I have shajibrittany david 05/26/[address] you [...] Upcoming Encounters Date Type Department Care Team ([facility] Contact Info) Description 07/21/2024 10:00 AM EDT Nurse Only [facility] MEDICINE [address] [place] [address] 01/21/2025 1:00 PM EDT Medication Management [facility] MEDICINE [address] [place] [address] John Hartley, [place] [address] Scheduled Referrals Name Type Priority Associated Diagnoses Orde r Schedule Referral to Pharmacy Smoking Cessation Program Outpatient Referral Routine Tobacco dependence Expected: 02/04/2024 (Approximate), Expires: 02/03/2025 Referral to Pharmacy CDTM Outpatient Referral Routine Primary hypertension Asthma with COPD ([facility]) Ordered: 02/04/2024 documented as of this encounter Goals Goal Patient Goal Type Associated Problems Recent Progress Patient-Stated? Author Blood Pressure < 140/90 Blood Pressure 131/74( 025 1:29 PM EDT) No John Hartley, Demarcus documented as of this encounter Visit Diagnoses Diagnosis Primary hypertension- Primary Unspecified essential hypertension Asthma with COPD ([facility]) Tobacco dependence Tobacco use disorder documented in this encounter Additional Health Concerns Assessment Noted Time PHQ-9 Depression Total Score: 9 07/07/19 24 3:03 PM EST documented as of this encounter Care Teams Roadability Machine Operator Relationship Specialty Start Date End Date Hina Evans MD [address] [place] [address] PCP - General Family Medicine 05/05/18 John Hartley, PharmD [address] [place] [phone] Pharmacist Internal Medicine 09/10/23 documented as of this encounter
--- OUTSIDE RECORDS SUMMARY | 2024-07-16 15:33 | XMS_ITS | Encounter Summary ---
Author Organization [employer] Address [address] [facility] [address] [place] [address] Care Team Providers Care Brusher Tender Name Role Phone Hina Evans MD Primary Care Provider [phone] John Hartley PharmD Unavailable [phone] Reason for Visit * Reason Onset Date Comments Med Refill 07/01/2024 Encounter Details Date Type Department Care Team (Late st Contact Info) Description 07/01/2024 Refill [facility] MEDICINE [address] [place], [place] [phone] Hina Evans MD [address] [place] [address] Social History Tobacco Use Types Packs/Day Years [...] encounter Miscellaneous Notes * Telephone Encounter - Ayah Ann LPN - 07/01/2024 8:31 AM EST Last seen 05/12/24. * Telephone Encounter - Lizz Wallis - 07/01/2024 8:01 AM EST TC from pt requesting medication refill. Medications needing refill : aspirin 81 MG chewable tablet To be sent to: [facility]/pharmacy #[id number] documented in this encounter Plan of Treatment Upcoming Encounters Date Type Department Care Team (Late st Contact Info) Description 07/21/2024 10:00 AM EDT Nurse Only [facility] MEDICINE [address] [place], [place] [phone] 01/21/2025 1:00 PM EDT Medication Management [facility] MEDICINE [address] [place] [address] John Hartley, PharmD [address] [place] [address] documented as of this encounter Goals Goal Patient Goal Type Associated Problems Recent Progress Patient-Stated? Author Blood Pressure < 140/90 Blood Pressure 131/74( 025 1:29 PM EDT) No John Hartley, PharmD documented as of this encounter Visit Diagnoses Not on filedocumented in this encounter Additional Health Concerns Assessment Noted Time PHQ-9 Depression Total Score: 3 02/19/20 24 11:21 AM EDT documented as of this encounter Care Teams Brusher Tender Relationship Specialty Start Date End Date Hina Evans MD [address] [place] [address] PCP - General Family Medicine 05/05/18 John Hartley, PharmD [address] [place] [address] Pharmacist Internal Medicine 09/10/23 documented as of this encounter
--- OUTSIDE RECORDS SUMMARY | 2024-07-16 15:33 | XMS_ITS | Encounter Summary ---
Author Organization [employer] Address [address] [facility] [address] [place] [address] Care Team Providers Care Flocculator Operator Name Role Phone Hina Evans MD Primary Care Provider [phone] John Hartley PharmD Unavailable [phone] Reason for Visit * Reason Onset Date Comments Call Back Request 06/04/2023 Encounter Details Date Type Department Care Team ([facility] st Contact Info) Description 06/04/2023 Telephone [facility] MEDICINE [address] [place], [place] [phone] Hina Evans MD [address] [place], [place] [phone] Call Back Request Social History Tobacco Use Types Packs/Day Years [...] Telephone Encounter - Hina Evans MD - 06/06/2023 4:34 PM EST Script sent * Telephone Encounter - Lincoln Delacruz - 06/04/2023 3:00 PM EST Tc from pt requesting call back. Pt has quit smoking and stated he is interested in nicotine patches. Please contact pt at [phone]. documented in this encounter Plan of Treatment Upcoming Encounters Date Type Department Care Team (Late st Contact Info) Description 07/21/2024 10:00 AM EDT Nurse Only [facility] [address] [place] [phone] 01/21/2025 1:00 PM EDT Medication Management [facility] [address] [place] [phone] John Hartley, PharmD [address] [place] [address] documented as of this encounter Visit Diagnoses Not on filedocumented in this encounter Care Teams Flocculator Operator Relationship Specialty Start Date End Date Hina Evans MD [address] [place] [id number] PCP - General Family Medicine 05/05/18 John Hartley, PharmD [address] [place] [address] Pharmacist Internal Medicine 09/10/23 documented as of this encounter
--- OUTSIDE RECORDS SUMMARY | 2024-07-16 15:33 | XMS_ITS | Clinical Summary ---
Author Organization [employer] Address [address] [facility] [facility] [address] [place] [address] Care Team Providers Care Stock Patcher Name Role Phone Hina Evans MD Primary Care Provider [phone] John Hartley PharmD Unavailable [phone] Allergies No known active allergies Medications * This document contains information received from the source organization and may not represent a complete record from that organization. albuterol 108 (90 Base) MCG/ACT inhalerIndicati ons:Asthma with COPD ([facility]) INHALE 2 PUFFS BY MOUTH EVERY 4 TO 6 HOURS NEEDED 8.5 g 1 06/26/19 23 Active Wixela Inhub 500-50 MCG/ACT aerosol powder INHALE 1 PUFF BY MOUTH EVERY 12 HOURS 180 each 3 08/04/19 24 Active gabapentin (Neurontin) 300 MG capsule Take 1 capsule (300 mg) by mouth at bedtime. 30 capsule 3 08/20/19 24 025 Active Blood Pressure Monitor kit Check blood pressure once daily and as needed 1 kit 08/20/19 24 Active albuterol (2.5 MG/3ML) 0.083% nebulizer solution INHALE 1 VIAL VIA NEBULIZER EVERY 6 HOURS NEEDED FOR WHEEZING 03/29/20 24 Active hydroCHLOROthia zide (HYDRODiuril) 25 MG tabletIndicatio ns:Primary hypertension Take 1 tablet (25 mg) by mouth Once per day. 90 tablet 3 04/09/20 24 Active atorvastatin (Lipitor) 40 MG tabletIndicatio ns:Dyslipidemia Take 1 tablet (40 mg) by mouth Once per day. 90 tablet 3 04/09/20 24 Active amLODIPine (Norvasc) 10 MG tabletIndicatio ns:Primary hypertension Take 1 tablet (10 mg) by mouth Once per day. 30 tablet 11 04/26/20 24 025 Active valsartan (Diovan) 40 MG tablet Take 1 tablet (40 mg) by mouth Once per day. 90 tablet 3 05/12/19 25 026 Active D-1000 Extra Strength 25 MCG (1000 UT) tablet TAKE 1 TABLET (25 MCG) BY MOUTH IN THE MORNING 90 tablet 3 05/13/19 25 Active omeprazole (PriLOSEC) [address] capsule TAKE 1 CAPSULE BY MOUTH TWICE A DAY 180 capsule 06/15/19 25 Active fluticasone (Flonase) 50 MCG/ACT nasal spray INSTILL 2 SPRAYS BY INTRANASAL ROUTE EVERY DAY 05/18/19 25 Active aspirin 81 MG chewable tablet CHEW 1 TABLET BY MOUTH EVERY DAY 90 tablet 1 07/01/19 25 Active simethicone (Gas-X) 80 MG chewable tablet Chew 1 tablet (80 mg) every 6 (six) hours if needed for flatulence. 60 tablet 2 05/26/19 24 025 Discontinued(M ed list cleanup (will not trigger notification to Pharmacy)) ibuprofen 600 MG tablet TAKE 1 TABLET BY MOUTH THREE TIMES A DAY NEEDED FOR FEVER OR PAIN 03/31/20 24 025 Discontinued(M ed list cleanup (will not trigger notification to Pharmacy)) aspirin 81 MG chewable tablet Chew 81 mg Once per day. 03/29/20 24 025 Discontinued(R eorder (will not trigger notification to Pharmacy)) meclizine (Antivert) 12.5 MG tablet TAKE 1 TABLET BY MOUTH 3 TIMES A DAY NEEDED DIZZINESS 03/29/20 24 025 Discontinued(M ed list cleanup (will not trigger notification to Pharmacy)) Active Problems Problem Noted Date Diagnosed Date At increased risk for cardiovascular disease 02/2025 Assessment & Plan (05/14/2024 7:11 AM EST): - on statin - started on ASA since he was hospitalized in Mar 2024 for headache, dizziness, and left facial weakness - work on lifestyle modifications Transaminitis 05/12/2024 Assessment & Plan (05/14/2024 7:09 AM EST): - likely MASLDs - check lab and US if persistently elevated - work on lifestyle modifications - consider GLP1RA if he agrees Lymph node enlargement 04/14/2024 Overview (04/14/2024): CT in hospital incidentally noted 10mm nasal lymph node. - Seen by ENT on 04/06/24 - Has follow up in 6 weeks 04/14/24 Assessment & Plan (04/14/2024 9:49 AM EST): CT in hospital incidentally noted 10mm nasal lymph node. - Seen by ENT on 04/06/24 - Has follow up in 6 weeks 04/14/24 Left ear pain 04/14/2024 Overview (04/14/2024): Pt reports symptoms much improved - Initially treated with amoxicillin for left otitis media, one week later admitted to [facility] 03/27-03/29/24 for left ear pain and left facial weakness. R/o CVA. 10mm lymph node in nasopharyngeal soft tissue noted on imaging recommending ENT follow up. He was discharged on meclazine. - Seen in [facility] ER 03/31 CT abnormal with possible mastoiditis vs neoplasm vs other. ER contacted ENT who recommended clindamycin, prednisone and ENT follow up. - Seen by ENT on 04/06/24 and has a follow up in 6 weeks 04/14/24 Assessment & Plan (04/14/2024 11:14 AM EST): Pt reports symptoms much improved - Initially treated with amoxicillin for left otitis media, one week later admitted to [facility] 03/27-03/29/24 for left ear pain and left facial weakness. R/o CVA. 10mm lymph node in nasopharyngeal soft tissue noted on imaging recommending ENT follow up. He was discharged on meclazine. - Seen in [facility] ER 03/31 CT abnormal with possible mastoiditis vs neoplasm vs other. ER contacted ENT who recommended clindamycin, prednisone and ENT follow up. - Seen by ENT on 04/06/24 and has a follow up in 6 weeks 04/14/24 Prediabetes 11/19/2023 Assessment & Plan (05/12/2024 1:08 PM EST): - A1C 5.7% on 02/10/24 - Continue working on lifestyle modifications. Assessment & Plan (02/19/2024 11:55 AM EDT): - A1C 5.7% on 02/10/24 - Continue working on lifestyle modifications. Assessment & Plan (11/19/2023 10:47 AM EDT): - Continue working on lifestyle modifications. Chronic pain of both knees 08/21/2023 Assessment & Plan (08/22/2023 11:46 AM EDT): - no significant swelling or erythema - instability - check X-ray; may need MRI Depression 07/07/2023 Assessment & Plan (07/07/2023 3:15 PM EST): PROGRESS NOTE: ID: Margarito is a 53 y.o. straight-identified cis-male with previous documented hx of Depression and Anxiety. Hx of MH services including OP Psychotherapy and psychopharmacology; who presents for Anxiety and Stress. He lives with his partner and his children including a special need daughter. He is disable. Recent in the family, but reported he has been able to manage it. During IBH Consult Margarito presenting with depressed mood, loss of interests/pleasure , change in appetite or weight overeating, trouble concentrating and excessive worry/anxiety, difficulty controlling worry, restless/keyed up/On edge, difficulty concentrating/Mind going blank , and muscle tension; for a period of 18+ mo, for all symptoms in the context of Recent in the family and trying to avoid his mother to find out through social media, concern about mother's health and his health, as he started to experience her left hand shaking involuntary. PLAN: New/Additional Services needed Off-site services for Behavioral Health Integration Plan External OP therapy referral Patient Self Plan Patient to utilize skills provided in intervention , [facility] as needed, and Patient to reach out to [facility] as needed Anxiety 07/07/2023 Assessment & Plan (02/19/2024 11:56 AM EDT): -Previously seen psychiatrist was prescribing Buproprion -Pt stopped Buproprion due to elevated BP and drowsiness -Pt reports overeating due to anxiety and not having tobacco, will try Venlafaxine Assessment & Plan (11/19/2023 10:53 AM EDT): -Previously seen psychiatrist was prescribing Buproprion -Pt stopped Buproprion due to elevated BP and drowsiness -Pt reports overeating due to anxiety and not having tobacco, will try Venlafaxine JAMILA (obstructive sleep apnea) 05/26/2023 Assessment & Plan (05/12/2024 1:09 PM EST): - sleep study at [facility] in September 2022 - AutoPAP 7-20 cm H2O - Improve adherence to CPAP Assessment & Plan (02/19/2024 11:54 AM EDT): - sleep study at [facility] in September 2022 - AutoPAP 7-20 cm H2O - Improve adherence to CPAP Assessment & Plan (11/19/2023 10:47 AM EDT): - sleep study at [facility] in September 2022 - AutoPAP 7-20 cm H2O - Improve adherence to CPAP Assessment & Plan (08/20/2023 2:13 PM EDT): - sleep study at [facility] in September 2022 - AutoPAP 7-20 cm H2O Assessment & Plan (05/26/2023 5:26 AM EST): - sleep study at [facility] in September 2022 - AutoPAP 7-20 cm H2O Tobacco dependence 05/26/2023 Assessment & Plan (05/12/2024 11:38 AM EST): - Work on smoking cessation - Seen by our pharmacist and encouraged to follow-up at [facility] clinic - Pt was prescribed nicotine gum / lozenges at last visit in Jan 2021, encouraged to try - LDCT at [facility] July 2022 Lung RADS 2 Assessment & Plan (02/19/2024 11:55 AM EDT): - Work on smoking cessation - Seen by our pharmacist and encouraged to follow-up at Smoking Cessation clinic - Pt was prescribed nicotine gum / lozenges at last visit in Jan 2021, encouraged to try - LDCT at [facility] July 2022 Lung RADS 2 Assessment & Plan (08/20/2023 2:11 PM EDT): - Work on smoking cessation - Seen by our pharmacist and encouraged to follow-up at Smoking Cessation clinic - Pt was prescribed nicotine gum / lozenges at last visit in Jan 2021, encouraged to try - LDCT at [facility] July 2022 Lung RADS 2 Assessment & Plan (05/26/2023 5:31 AM EST): - Work on smoking cessation - Seen by our pharmacist and encouraged to follow-up at Smoking Cessation clinic - Pt was prescribed nicotine gum / lozenges at last visit in Jan 2021, encouraged to try - LDCT at [facility] July 2022 Lung RADS 2 Headache 05/26/2023 Assessment & Plan (08/20/2023 2:14 PM EDT): -Neurologist: [facility], last seen in October 2022 -Current Dx: cervicogenic CONN and tension CONN -MRI 04/03/20, no acute pathology, benign -continue gabapentin. -previously tried baclofen, which was discontinued due to ineffectiveness -evaluated by [facility] provider, last seen on 05/14/23 after cervical X-ray and MRI in Feb 2023. Recommended to continue home exercise program. Assessment & Plan (05/26/2023 5:33 AM EST): -Neurologist: [facility], last seen in October 2022 -Current Dx: cervicogenic CONN and tension CONN -MRI 04/03/20, no acute pathology, benign -continue gabapentin. -previously tried baclofen, which was discontinued due to ineffectiveness -evaluated by [facility] provider, last seen on 1/10/24 after cervical X-ray and MRI in Feb 2023. Recommended to continue home exercise program. 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 A head CT found intracranial atherosclerotic disease but no acute hemorrhage. DDx included Sam? s palsy, Lyme, and CVA/TIA; comments noted that symptoms were most consistent with Sam? s and the patient was discharged with prednisone and Valtrex. - 03/31/24 Seen in [facility] ED. Dx Sam's palsy. Rx prednisone. CT showed left otomastoiditis. Rx clindamycin. ([facility] hospitalization 03/27-03/29/24, presented with with left facial weakness, dizziness, and CONN. Head imaging negative, except incidental finding of 10 mm lymph node in [place] soft tissue. Rx ASA, meclizine. Follow up with ENT). Assessment & Plan (08/22/2023 12:12 PM EDT): -04/05/18 the patient was seen at [facility] ED for c\o constant R-side headache, face swelling, numbness, and paresthesia x2 days. A head CT found intracranial atherosclerotic disease but no acute hemorrhage. DDx included Sam? s palsy, Lyme, and CVA/TIA; comments noted that symptoms were most consistent with Sam? s and the patient was discharged with prednisone and Valtrex. Peripheral vascular disease 05/31/2022 Assessment & Plan (05/14/2024 7:13 AM EST): RA on 01/13/19 showed left mild to moderate PAD Continue working on lifestyle modification Ordered arterial doppler, but patient has not scheduled appointment. Patient was given the number to reschedule since we have sent the orders several times and they stated that patient had not returned call. Assessment & Plan (02/24/2024 12:33 PM EDT): RA on 01/13/19 showed left mild to moderate PAD Continue working on lifestyle modification Ordered arterial doppler, but patient has not scheduled appointment. Patient states he thinks he has an upcoming appointment. Assessment & Plan (11/19/2023 10:50 AM EDT): RA on 01/13/19 showed left mild to moderate PAD Continue working on lifestyle modification Update US due to leg pain, although it seems to be coming from knee pain, PT rescheduled US for February. Assessment & Plan (08/22/2023 11:54 AM EDT): RA on 01/13/19 showed left mild to moderate PAD Continue working on lifestyle modification Update US due to leg pain, although it seems to be coming from knee pain Hypertension 01/28/2018 Overview (04/14/2024): - Amlodipine was increased to 5 mg 04/14/24 Assessment & Plan (05/12/2024 12:34 PM EST): -Goal BP < 140/90 per JNC-8 and < 130/80 per ACC/AHA guideline (Treatment threshold >= 130/80 ) - BP elevated today - EKG in Feb 2016, wnl. - Stress echo / nuclear stress test on 12/28/18 - no ischemia - Co-managed with our pharmacist - BP today is elevated despite intensifying medical therapy - Continue HCTZ 25 mg daily - Continue amlodipine 10 mg daily - Add valsartan 40 mg daily - Remain non-smoker - Optimize treatment for JAMILA and improve adherence to CPAP - Recommend low sodium diet and weight reduction - Discussed about the importance of lifestyle modification. Assessment & Plan (04/14/2024 11:14 AM EST): - Amlodipine was increased to 5 mg 04/14/24 Assessment & Plan (02/19/2024 11:55 AM EDT): -Goal BP < 140/90 per JNC-8 and < 130/80 per ACC/AHA guideline (Treatment threshold >= 130/80 ) - BP elevated today - EKG in Feb 2016, wnl. - Stress echo / nuclear stress test on 12/28/18 - no ischemia - Co-managed with our pharmacist - BP today is slightly above goal - Continue HCTZ 25 mg daily - Work on smoking cessation - Recommend low sodium diet and weight reduction - Discussed about the importance of lifestyle modification. Assessment & Plan (11/19/2023 10:49 AM EDT): -Goal BP < 140/90 per JNC-8 and < 130/80 per ACC/AHA guideline (Treatment threshold >= 130/80 ) - EKG in Feb 2016, wnl. - Stress echo / nuclear stress test on 12/28/18 - no ischemia - Co-managed with our pharmacist - BP today is slightly above goal - Continue HCTZ 25 mg daily - Work on smoking cessation - Recommend low sodium diet and weight reduction - Discussed about the importance of lifestyle modification. Assessment & Plan (08/20/2023 2:13 PM EDT): -Goal BP < 140/90 per JNC-8 and < 130/80 per ACC/AHA guideline (Treatment threshold >= 130/80 ) - EKG in Feb 2016, wnl. - Stress echo / nuclear stress test on 12/28/18 - no ischemia - Continue HCTZ 12.5mg daily - Work on smoking cessation - Recommend low sodium diet and weight reduction - Discussed about the importance of lifestyle modification. - Return for BP check with our nurse - If BP is persistently elevated at home > 140/90, will switch discontinue hydrochlorothiazide, and start amlodipine 2.5 mg daily. Since it may require dose adjustment, will change simvastatin to atorvastatin 20 mg at bedtime due to CCB-simvastatin drug interaction.. If BP is still > 140/90 at home, will increase amlodipine to 5 mg daily - Follow up with PCP in 3 mo. Assessment & Plan (06/01/2023 12:09 PM EST): -Goal BP < 140/90 per JNC-8 and < 130/80 per ACC/AHA guideline (Treatment threshold >= 130/80 ) - EKG in Feb 2016, wnl. - Stress echo / nuclear stress test on 12/28/18 - no ischemia - Continue HCTZ 12.5mg daily - Work on smoking cessation - Recommend low sodium diet and weight reduction - Discussed about the importance of lifestyle modification. - Return for BP check with our nurse - If BP is persistently elevated at home > 140/90, will switch discontinue hydrochlorothiazide, and start amlodipine 2.5 mg daily. Since it may require dose adjustment, will change simvastatin to atorvastatin 20 mg at bedtime due to CCB-simvastatin drug interaction.. If BP is still > 140/90 at home, will increase amlodipine to 5 mg daily - Follow up with PCP in 3 mo. Chronic recurrent major depressive disorder 08/03 Assessment & Plan (08/22/2023 12:14 PM EDT): - previously seeing Dr. Rodrigues - previously taking bupropion which was discontinued by Dr. Rodrigues in 2018 - his daughter has a lot of medical needs, and he is busy taking care of his daughter Asthma with COPD 05/28/2012 Assessment & Plan (11/19/2023 10:48 AM EDT): - most recent exacerbation in Feb 2023, seen in [facility] ED and received steroid burst. - continue Advair - continue albuterol HFA - Pt stop smoking in May 2023, continue to maintain abstinence. Assessment & Plan (08/20/2023 2:13 PM EDT): - most recent exacerbation in Feb 2023, seen in [facility] ED and received steroid burst. - continue Advair - continue albuterol HFA Assessment & Plan (05/26/2023 5:27 AM EST): - most recent exacerbation in Feb 2023, seen in [facility] ED and received steroid burst. - continue Advair - continue albuterol HFA Chronic back pain 05/28/2012 Assessment & Plan (02/19/2024 11:55 AM EDT): - judicious use of gabapentin Assessment & Plan (08/22/2023 12:06 PM EDT): - judicious use of gabapentin Dyslipidemia 05/28/2012 Assessment & Plan (05/14/2024 7:10 AM EST): - Current medication: atorvastatin 40 mg qhs - last lipid profile was in Feb 2024. - Continue working on modifiable risk management and maintain optimal BP control Assessment & Plan (02/19/2024 11:55 AM EDT): - Current medication: simvastatin 20 mg qhs - last lipid profile was in May 2023. - 10-year ASCVD risk has halved since he stopped smoking; however still > 5%. Consider coronary calcium score - Consider intensifying statin - Continue working on modifiable risk management and maintain optimal BP control Assessment & Plan (11/18/2023 9:28 PM EDT): - Current medication: simvastatin 20 mg qhs - last lipid profile was in May 2023. - 10-year ASCVD risk has halved since he stopped smoking; however still > 5%. Consider coronary calcium score - Consider intensifying statin - Continue working on modifiable risk management and maintain optimal BP control Assessment & Plan (08/22/2023 12:16 PM EDT): - Current medication: simvastatin 20 mg qhs - last lipid profile was in May 2023. - 10-year ASCVD risk has halved since he stopped smoking; however still > 5%. Consider coronary calcium score - Consider intensifying statin - Continue working on modifiable risk management and maintain optimal BP control Assessment & Plan (05/26/2023 5:30 AM EST): - Current medication: simvastatin 20 mg qhs -Last FLP on 05/31/20: A1c 5.4; TC:214; TG 151; HDL 46; LDL 140; vit. D 20. - According to ACC/AHA guideline, his ASCVD risk is 4.9% with current statin therapy. Previously it was > 7.5%. - Cardiac risk counseling done - Continue working on modifiable risk management and maintain optimal BP control Gastroesophageal reflux disease 05/28/2012 Assessment & Plan (11/19/2023 10:51 AM EDT): - Continue omeprazole - simethicone prn Assessment & Plan (08/20/2023 2:13 PM EDT): - check H. Pylori - restart omeprazole once H. Pylori stool antigen specimen is submitted - simethicone prn Assessment & Plan (06/01/2023 11:58 AM EST): - check H. Pylori - restart omeprazole once H. Pylori stool antigen specimen is submitted - simethicone prn Class 1 obesity 05/28/2012 Encounters Date Type Department Care Team Description 07/16/2024 Travel 07/01/2024 Refill [facility] [address] [facility] [place] [address] Hina Evans MD 06/15/2024 Refill [facility] [address] [facility] [place] [address] Nataliya Young MD 05/13/2024 Abstract [facility] [address] [place] [address] Eugenie Koenig MA 05/13/2024 Refill [facility] [address] [facility] [place] [address] Hina Evans MD 05/12/2024 10:30 AM EST Office Visit [facility] [place] [address] Hina Evans MD Asthma with COPD ([facility]) (Primary Dx); Primary hypertension; Prediabetes; Tobacco dependence; Dyslipidemia; JAMILA (obstructive sleep apnea); Transaminitis; Sam's palsy; At increased risk for cardiovascular disease; Peripheral vascular disease ([facility]) 05/12/2024 Orders Only [facility] [place] [address] Hina Evans MD 05/12/2024 Travel 04/26/2024 9:30 AM EST Telemedicine [facility] [facility] [place] [address] John Hartley, PharmD Primary hypertension (Primary Dx) from Last 3 Months Immunizations Name Administration Dates Next Due Hep A, ped/adol, 2 dose 11/07/2010,02/14/2010 Hep B, Adolescent or Pediatric 11/07/2010,2010,02/14/2010 Influenza injectable quadriv alent IIV4 with preservative 01/28/2018,02/06/2017,02/26/2016,01/17 Influenza injectable quadriv alent preservative free 05/26/2023,05/31/2022,03/02/2020,03/16 Influenza, IIV3, injectable 05/30/2014, 1 Influenza, Split (incl. gilmar fied surface antigen) 01/14/2013,05/28/2012 Influenza, seasonal, injecta ble, preservative free 02/06/2024 Pfizer Covid-19 Vaccine 12+ 02/19/2024 Pneumococcal Conjugate PCV 20 05/26/2023 Pneumococcal Conjugate PCV 7 02/14/2010 Pneumococcal Polysaccharide PPSV23 07/29/2013 TD (adult), 2 Lf tetanus tox oid, preservative free, adsorbed 10/07/2008 Tdap 08/20/2023,07/29/2013 Social History Tobacco Use Types Packs/Day Years Used Date Smoking Tobacco: Former Cigarettes Q uit: 06/02/2023 Smokeless Tobacco: Never Tobacco Cessation:Counseling Given: Not Answered Comments:1 box can last him between 24 [...] Orientation Straight 2022 10 :19 AM EDT Last Filed Vital Signs Vital Sign Reading Time Taken Comments Blood Pressure 131/74 07/16/2024 1:29 PM EDT Omron Monitor Pulse 72 07/16/2024 1:29 PM EDT Temperature 36.4 ??C (97.5 ??F) 05/11/2024 1 1:04 AM EST Respiratory Rate 16 05/11/2024 11:0 4 AM EST Oxygen Saturation 98% 05/11/2024 11: 04 AM EST Inhaled Oxygen Concentration - - Weight 89.2 kg (196 lb 9.6 oz) 05/11/2024 11:04 AM EST Height 163.9 cm (5' 4.52 ) 05/11/2024 1 1:04 AM EST Body Mass Index 33.2 05/11/2024 11:04 AM EST Plan of Treatment Upcoming Encounters Date Type Department Care Team (Late st Contact Info) Description 07/21/2024 10:00 AM EDT Nurse Only [facility] [address] [place] [phone] 01/21/2025 1:00 PM EDT Medication Management [facility] [address] [place] [id number] John Hartley, PharmD [address] [place] [address] Health Maintenance Due Date Last Done Comments CT Colonography 1969 FIT DNA/Cologuard 1969 FIT 1969 FOBT 1969 Sigmoidoscopy 1969 Alcohol/Substance Use Screening 1981 Hepatitis B Vaccines (1 of 3 - 19+ 3-dose series) 1988 11/07/2010, 05/08/2010, 02/14/2010 Zoster Vaccines (1 of 2) 2019 SDOH Screening 05/26/2024 05/26/2023 Diabetes: Hemoglobin A1C 02/09/2025 024, 11/19/2023, 05/26/2023, Additional history exists Depression Screening 02/18/2025 02/19/2024, 02/19/20 24 Tobacco Screening 05/12/2025 05/12/2024 Lipid Panel 05/12/2029 05/12/2024, 10/0 12/2023, 05/26/2023, Additional history exists DTaP/Tdap/Td Vaccines (3 - Td or Tdap) 08/19/2033 08/20/2023, 07/29/2013, 10/07/2008 Colonoscopy 03/10/2034 03/10/2024 Colorectal Cancer Screening 03/10/2034 RSV Patients and Patients Aged 60 years or older (1 - 1-dose 75+ series) 2044 Hepatitis A Vaccines Aged Out 11/07/2010, 02/15/20 10 No longer eligible based on patient's age to complete this topic HIV Screening Completed 07/20/2020 Hepatitis C Screening Completed 07/20/2020 Pneumococcal Vaccine: 50+ Years Completed 05/26/2023, 07/29/2013, 02/14/2010 Influenza Vaccine Completed 02/06/2024, , 05/31/2022, Additional history exists COVID-19 Vaccine Completed 02/19/2024, 12/2020, 09/13/2020, Additional history exists HIB Vaccines Aged Out No longer eligi ble based on patient's age to complete this topic HPV Vaccines Aged Out No longer eligi ble based on patient's age to complete this topic IPV Vaccines Aged Out No longer eligi ble based on patient's age to complete this topic Meningococcal Vaccine Aged Out No brittany lorri eligible based on patient's age to complete this topic RSV under 20 months Aged Out No longe r eligible based on patient's age to complete this topic Rotavirus Vaccines Aged Out No longer eligible based on patient's age to complete this topic Goals Goal Patient Goal Type Associated Problems Recent Progress Patient-Stated? Author Blood Pressure < 140/90 Blood Pressure 131/74( 025 1:29 PM EDT) No John Hartley, Demarcus Procedures Procedure Name Priority Date/Time Associated Diagnosis Comments LIPID PANEL, STANDARD Routine 05/12/2024 12:10 PM EST HEPATIC FUNCTION PANEL Routine 05/12/2024 12:10 PM EST BASIC METABOLIC PANEL Routine 05/12/2024 12:10 PM EST Primary hypertension HM COLONOSCOPY Routine 03/10/2024 HEMOGLOBIN A1C Routine 02/10/2024 10:15 AM EDT Prediabetes ZZZ HISTORICAL HEPATITIS C AB W/REFL TO HCV RNA, QN, PCR Routine 07/20/2020 10:55 AM EDT HIV 1/2 ANTIGEN/ANTIBODY, FOURTH GENERATION W/RFL Routine 07/20/2020 10:55 AM EDT from Last 3 Months or Most Recently Relevant to Health Maintenance Results * (ABNORMAL) Hepatic Function Panel (05/12/2024 12:10 PM EST) Bilirubin, Total 0.7 0.0 - 1.0 mg/dL [facility] Bilirubin, Direct 0.2 0.0 - 0.5 mg/dL [facility] Aspartate Amino Transferase 41(H) 5 - 37 U/L [facility] Alanine Aminotransferase 78(H) 0 - 40 U/L [facility] Total Protein 7.2 6.5 - 8.0 g/dL [facility] Albumin Level 4.4 3.5 - 5.0 g/dL [facility] Alkaline Phosphatase 54 39 - 117 U/L [facility] 05/12/2024 12:1 0 PM EST 05/12/2024 1:04 PM EST us Hina Evans MD LAB BLOOD ORDERABLES Final Resul t Performing Organization Address [facility] de Phone Number [facility] [address] [place] [address] [phone] * (ABNORMAL) Lipid Panel, Standard (05/12/2024 12:10 PM EST) Triglycerides 182(H) <150 mg/dL [facility] Comment:Desirable Triglyceri de: less than 150 mg/dLBorderline High Triglyceride 150-199 mg/dLHigh Triglyceride: 200-499 mg/dLVery High Triglyceride: greater than or equal to 5OO mg/dL Cholesterol 128 <200 mg/dL [facility] Comment:Desirable Cholestero l: less than 200 mg/dLBorderline High Cholesterol: 200-239 mg/dLHigh Cholesterol: greater than 239 mg/dL LDL Cholesterol Calculated 43 <100 mg/dL [facility] Comment:Desirable LDL: less than 100 mg/dLNear Optimal/Above Optimal LDL: 110- 129 mg/dLBorderline High LDL: 130-159 mg/dLHigh LDL: 160-189 mg/dLVery High LDL: greater than or equal to 190 mg/dL HDL Cholesterol 49 >40 mg/dL [facility] Comment:Desirable HDL: great er than 40 mg/dL Note: This HDL assay may give artificially low results in patients with liver disease. 05/12/2024 12:1 0 PM EST 05/12/2024 1:04 PM EST Hina Evans MD LAB BLOOD ORDERABLES Final Resul t Performing Organization Address [facility] Co de Phone Number [facility] [address] [place] [address] [phone] * Basic Metabolic Panel (05/12/2024 12:10 PM EST) Sodium 145 135 - 145 mmol/L [facility] Potassium 3.6 3.3 - 5.1 mmol/L [facility] Chloride 107 96 - 108 mmol/L [facility] Carbon Dioxide 27 22 - 29 mmol/L [facility] Anion Gap 15 12 - 20 [facility] Urea Nitrogen (BUN) 15 9 - 16 mg/dL [facility] Creatinine, Serum 0.85 0.5 - 1.4 mg/dL [facility] Estimated Glomerular Filt Rate >60 [facility] Comment:Chronic Kidney Disea se: Estimated GFR < 60 mL/min/1.00x7Zyrjep Kidney Disease: Estimated GFR < 15 mL/min/1.73m2 Glucose 105 60 - 115 mg/dL [facility] Calcium 9.5 8.4 - 10.2 mg/dL [facility] Blood Venous blood specimen / Unknown 05/12/2024 12:10 PM EST 05/12/2024 1:04 PM EST Hina Evans MD LAB BLOOD ORDERABLES Final Resul t [facility] [address] [place] [phone] * Hm Colonoscopy (03/10/2024) Colonoscopy Normal Normal 03/10/2024 Historical Provider HEALTH MAINTENANCE Final Result * Hemoglobin A1c (02/10/2024 10:15 AM EDT) Hemoglobin A1c 5.7 <6.0 % [facility] Comment:Hemoglobin A1C Refer ence Range Adults: 4.8 - 6.0 % Non diabetic: < 6.0 % Goal: < 7.0 %Additional Action Suggested: > 8.0 %Note: Hemoglobin A1c results are invalid for patients with abnormal amounts of HbF. Blood transfusions may impact the HbA1c concentration in the patient sample. Estimated Average Glucose 117 mg/dL [facility] Comment:eAG = Estimated ave rage glucose which is %A1C expressed asaverage glucose, using the formula of the N1I-KagosfsEmlstoo Glucose study (ADAG), Diabetes Care, Vol.31,#8,Dec. 2007 Blood Venous blood specimen / Unknown 02/10/2024 10:15 AM EDT 02/10/2024 11:35 AM EDT us Hina Evans MD LAB BLOOD ORDERABLES Final Resul t [facility] [address] [place] [address] [phone] * HEPATITIS C AB W/REFL TO HCV RNA, QN, PCR (07/20/2020 10:55 AM EDT) HEPATITIS C ANTIBODY NON-REACT [facility] NON-REACT [facility] INDEX 0.01 <1.00 [facility] Comment: ?? HCV antibody was non-reactive. There is no laboratory ?? evidence of HCV infection. ?? In most cases, no further action is required. However, if recent HCV exposure is suspected, a test for HCV RNA (test code 39767) is suggested. ?? For additional information please refer to http://education.Writer's Bloq/faq/OPA43d2 (This link is being provided for informational/ educational purposes only.) ?? 07/20/2020 10:5 5 AM EDT us Hina Evans MD HISTORICAL/NON ORDERABLE LABS Fi nal Result Performing Organization Address City/[facility]/ZIP Co de Phone Number [facility] [address] * HIV 1/2 ANTIGEN/ANTIBODY,FOURTH GENERATION W/RFL (07/20/2020 10:55 AM EDT) HIV-1/2 ANTIGEN AND ANTIBODIES, 4TH GENERATION W/ REFLEX NON-REACT [facility] NON-REACT [facility] Comment: HIV-1 antigen and HIV-1/HIV-2 antibodies were not detected. There is no laboratory evidence of HIV infection. ?? PLEASE NOTE: This information has been disclosed to you from records whose confidentiality may be protected by state law. ??If your state requires such protection, then the state law prohibits you from making any further disclosure of the information without the specific written consent of the person to whom it pertains, or as otherwise permitted by law. A general authorization for the release of medical or other information is NOT sufficient for this purpose. ? For additional information please refer to http://education.Writer's Bloq/faq/GVS816 (This link is being provided for informational/ educational purposes only.) ? The performance of this assay has not been clinically validated in patients less than 2 years old. ?? 07/20/2020 10:5 5 AM EDT Hina Evans MD LAB BLOOD ORDERABLES Final Resul t [facility] [address] from Last 3 Months or Most Recently Relevant to Health Maintenance Insurance - [employer] Care Teams Stock Patcher Relationship Specialty Start Date End Date Hina Evans MD [address] [place] [phone] PCP - General Family Medicine 05/05/18 John Hartley, BrianD [address] [place] [address] Pharmacist Internal Medicine 09/10/23
--- OUTSIDE RECORDS SUMMARY | 2024-07-16 15:33 | XMS_ITS | Clinical Summary ---
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 Active omeprazole OTC (PriLOSEC OTC) 20 mg EC tablet Take by mouth 1 (one) time each day. Do not crush, chew, or split. Active albuterol 2.5 mg /3 mL (0.083 %) nebulizer solution Take 3 mL (2.5 mg total) by nebulization every 6 (six) hours if needed for wheezing. Active Medical History Medical History Date Comments Chronic back pain, unspecifi ed back location, unspecified back pain laterality Hypertension Social History Tobacco Use Types Packs/Day Years Used Date Smoking Tobacco: Former Cigarettes Tobacco Cessation:Counseling Given: Not Answered Alcohol Use Standard Drinks/Week Comments Yes 0 (1 standard drink = 0.6 oz pur e alcohol) Sex and Gender Information Value Date Recorded Sex Assigned at Not on file Legal Sex Male 2:17 AM EST Gender Identity Not on file Sexual Orientation Not on file Obstetrics History Last Filed Vital Signs Vital Sign Reading Time Taken Comments Blood Pressure 134/81 03/21/2024 7:42 AM EST Pulse 63 03/21/2024 7:42 AM EST Temperature 36.6 ??C (97.9 ??F) 03/21/2024 7:42 AM ES T Respiratory Rate 17 03/21/2024 7:42 AM EST Oxygen Saturation 99% 03/21/2024 7:42 AM EST Inhaled Oxygen Concentration - - Weight 87.1 kg (192 lb) 03/20/2024 11:22 PM EST Height 162.6 cm (5' 4 ) 03/20/2024 11:22 PM EST Body Mass Index 32.96 03/20/2024 11:22 PM EST Plan of Treatment Health Maintenance Due Date Last Done Comments Hepatitis A Vaccines (1 of 2 - Risk 2-dose series) 1988 11/07/2010, 02/14/2010 Hepatitis B Vaccines (1 of 3 - 19+ 3-dose series) 1988 11/07/2010, 05/08/2010, 02/14/2010 Zoster Vaccines (1 of 2) 2019 Cholesterol Screening (Lipid Panel) 04/07/2022 Colorectal Cancer Screening: Colonoscopy 04/07/2022 Hepatitis C Screening 04/07/2022 Medicare Annual Wellness Visit 04/07/2022 Social Influencers of Health Screening 04/07/2022 Hypertension/CHF/CAD Annual BMP Blood Test 02/09/2025 02/10/2024 Depression Screening 02/18/2025 02/19/2024 DTaP,Tdap,and Td Vaccines (4 - Td or Tdap) 08/19/2033 08/20/2023, 07/29/2013, 10/07/2008 HIV Screening Completed 07/20/2020 Pneumococcal Vaccine: 50+ Years Completed 05/26/2023, 07/29/2013 Pneumococcal Vaccine: Pediatrics (0 to 5 Years) and At-Risk Patients (6 to 64 Years) Completed 05/26/2023, 07/29/2013, 02/14/2010 Influenza Vaccine Completed [...] on patient's age to complete this topic MMR Vaccines Aged Out No longer eligi ble based on patient's age to complete this topic Meningococcal ACWY Vaccine Aged Out N o longer eligible based on patient's age to complete this topic Meningococcal B Vacine Aged Out No lo nger eligible based on patient's age to complete this topic RSV Immunization Patients Under 20 months Aged Out No longer eligible based on patient's age to complete this topic Varicella Vaccines Aged Out No longer eligible based on patient's age to complete this topic Insurance [facility] Member Subscriber Plan / Payer ( fective 2023-Present) Name:Margarito Hernandez Relation to Subscriber:Self Name:Margarito Hernandez Payer ID:[id number] Group ID:[id number] Type:Not on file Address: [address] [place] [id number] [employer] MEDICARE Member Subscriber Plan / Payer ( fective 2023-Present) Name:Margarito Hernandez Relation to Subscriber:Self Name:Margarito Hernandez Payer ID:[id number] Group ID:[id number] Type:Not on file Address: [address] [place] [id number] Care Teams Grading Machine Operator Relationship Specialty Start Date End Date Physician, Pcp Unknown PCP - General 03/21/24
--- OUTSIDE RECORDS SUMMARY | 2024-07-16 15:33 | XMS_ITS | Data Portability ---
Author Organization [place] - [facility], Allergy Address [address] [place] [address] Care Team Providers Care Typing Pool Supervisor Name Role Phone RAÚL CORTES Primary Care Provider Assessment Encounter Date Assessment Date Assessment LastModified by Organization Details LastModified Time 04/06/2024 04/06/2024 30 pages of notes reviewed from [facility] at [facility] [place], reviewing multiple scans and notes. I suspect that the left-sided facial weakness and dizziness was likely to be a virally mediated etiology rather than an acute bacterial otitis media. The fluid noted secondarily within the left middle ear and mastoid is likely to be a reactive phenomenon or due to underlying eustachian tube dysfunction rather than acute otitis. There is no sign of fluid in the middle ear or signs of bacterial infection within the middle ear space today. Not available 04/06/2024 11:04:31 05/18/2024 05/18/2024 Left-sided facial paresis has resolved. Patient has no synkinesis on the left, but he does have some mild synkinesis on the right dating back to his prior history of right sided facial paresis. [email or web address] Not available 05/18/2024 10:16:08 Plan of Treatment Reminders Order Date Submit Date Provider Last Modified By Organization Details Last Modified Time Details Appointments None recorded. Lab None recorded. Referral None recorded. Procedures None recorded. Surgeries None recorded. Imaging None recorded. Medication Orders fluticasone propionate 50 mcg/actuati on nasal spray,suspe nsion 2024 025 [facility]/Pharmacy #[id number], [address] [place], [address], 10:12:55 prednisone 20 mg tablet 2023 025 [facility]/Pharmacy #[id number], [address] [place], [address], 5 09:37:40 Patient TargetsNo targets recorded. Patient InstructionsNo instructions recorded. Reason for Referral None Reported. Results Created Date Observation Date Name Description Value Unit Range Abnormal Flag Note LastModifiedBy Organization Detail LastModifiedTime 04/05/20 24 03/31/2024 CT, tempo ral bone, w/o contr ast No observ ation record ed. [email or web address] Not Available 2023 18:16:41 04/06/20 24 audio gram No observ ation record ed. BARCODE Not Available 2023 13:49:02 05/18/19 25 audio gram No observ ation record ed. BARCODE Not Available 2024 13:31:16 Result Notes None recorded. Problems Name Problem SNOMED Code Status Onset Date Resolution Date Notes Provider Name and Address Organization Details Recorded Time [place] palsy of left side of face 7127661611563 9103 Active 2023 GILBERTO SHEA MD [address] [address], [facility] [place], [address], [place] - [facility] [place] 4 09:41:29 Nasopharyng itis 91116637 Active 2023 GILBERTO SHEA MD [address] [place] [address], [facility] [place], [address], [place] - [facility] [place] 4 09:41:39 Dysfunction of left eustachian tube 8826229645324 106 Active 2023 GILBERTO SHEA MD [address] [place] [address], [place] [place], [address], [place] - [facility] [place] 4 09:44:03 Allergic rhinitis 31846248 Active 2024 GILBERTO SHEA MD [address] [address], [place], [address], [place] - [facility] [place] 5 10:09:37 Sensorineur al hearing loss of bilateral ears 236641903 Active 2024 GILBERTO SHEA MD [address] [facility],[address], [address], [place] - [facility] [place] 10:55:19 Problem Notes None recorded. Procedures Surgical History Date Name Laterality Status Provider Name and Address Organization Details Recorded Time 025 Air & Speech Audio with Tymps (18522, 81093 & 66989) completed RENAN RUIZ AUD [address] [place] [address],[address], [address], [facility] - [facility] [place] 05/18/2024 10:26:39 025 Fiberoptic Nasopharyngoscopy completed GILBERTO SHEA MD [address] [facility],[address], [address], [facility] - [facility] [place] 05/18/2024 10:08:42 024 Comp Audio with Tymps (71935 & 27419) completed RICHARD REVELES, AUD [address] [place] [address],[address], [address], [facility] - [facility] 04/06/2024 10:23:13 024 Fiberoptic Nasopharyngoscopy completed GILBERTO SHEA MD [address] [place] [address],[address], [address], [facility] - [facility] 04/06/2024 09:41:19 Imaging Results Imaging Date Name Status LastModified by Organiz ation Details LastModified Time 03/31/2024 CT, temporal bone, w/o contrast completed [email or web address] Information not available 04/05/2024 18:16:41 04/06/2024 audiogram completed BARCODE Information no t available 04/06/2024 13:49:02 05/18/2024 audiogram completed BARCODE Information no t available 05/18/2024 13:31:16 Procedure Notes None recorded. Medical Equipment None Reported. Allergies No known drug allergies Medications Name Sig Start Date Stop Date Status Note LastModified by Organization Details LastModified Time amoxicillin 500 mg capsule TAKE 1 CAPSULE BY MOUTH THREE TIMES A DAY FOR 7 DAYS 12/03 /2024 completed Not Available Not Available Not Available atorvastati n 40 mg tablet active Not Available Not Available Not Available nicotine 14 mg/[address] patch [address] 1 PATCH ON THE SKIN 1 TIME EACH DAY AT THE SAME TIME. 04/06 completed Not Available Not Available Not Available clindamycin HCl 300 mg capsule TAKE 1 CAPSULE ORALLY 3 TIMES A DAY FOR 10 DAYS 05/18 completed Not Available Not Available Not Available albuterol sulfate 2.5 mg/3 mL (0.083 %) solution for nebulizatio n INHALE 1 VIAL VIA NEBULIZER EVERY 6 HOURS NEEDED FOR WHEEZING active Not Available Not Available No t Available prednisone 20 mg tablet Take 3 tablets once a day for 4 days, then 2 tablets for 1 day, then 1 tablets for 1 day 05/18 completed Not Available Not Available Not Available clindamycin HCl 150 mg capsule TAKE 1 CAPSULE ORALLY 3 TIMES A DAY FOR 10 DAYS 05/18 completed Not Available Not Available Not Available meclizine 12.5 mg tablet TAKE 1 TABLET BY MOUTH 3 TIMES A DAY NEEDED DIZZINESS active Not Available Not Available No t Available amlodipine 2.5 mg tablet 05/18 completed Not Available Not Available Not Available amlodipine 5 mg tablet 05/18 completed Not Available Not Available Not Available nicotine (polacrilex ) 4 mg gum CHEW 1 EACH (4 MG) IF NEEDED FOR SMOKING CESSATION . 04/06 completed Not Available Not Available Not Available amlodipine 10 mg tablet active Not Available Not Available Not Available simvastatin 20 mg tablet TAKE 1 TABLET BY MOUTH EVERY DAY IN THE EVENING 05/18 completed Not Available Not Available Not Available gabapentin 300 mg capsule TAKE 1 CAPSULE BY MOUTH AT BEDTIME 04/06 completed Not Available Not Available Not Available omeprazole 20 mg capsule,del ayed release TAKE 1 CAPSULE BY MOUTH TWICE A DAY active Not Available Not Available No t Available aspirin 81 mg chewable tablet TAKE 1 TABLET BY MOUTH EVERY DAY active Not Available Not Available No t Available hydrochloro thiazide 25 mg tablet TAKE 1 TABLET (25 MG) BY MOUTH ONCE PER DAY. active Not Available Not Available No t Available ibuprofen 600 mg tablet TAKE 1 TABLET BY MOUTH THREE TIMES A DAY NEEDED FOR FEVER OR PAIN active Not Available Not Available No t Available fluticasone propionate 50 mcg/actuati on nasal spray,suspe nsion INSTILL 2 SPRAYS BY INTRANASA L ROUTE EVERY DAY active Not Available Not Available No t Available nicotine 7 mg/[address]dermal patch [address] 1 PATCH ON THE SKIN 1 TIME EACH DAY AT THE SAME TIME. 04/06 completed Not Available Not Available Not Available simethicone 80 mg chewable tablet CHEW 1 TABLET BY MOUTH EVERY 6 HOURS IF NEEDED FOR FLATULENC E. 04/06 completed Not Available Not Available Not Available valsartan 40 mg tablet active Not Available Not Available Not Available Vitamin D3 25 mcg (1,000 unit) tablet TAKE 1 TABLET (25 MCG) BY MOUTH IN THE MORNING active Not Available Not Available No t Available chlorhexidi ne gluconate 0.12 % mouthwash SWISH AND SPIT 15 ML TWICE A DAY FOR14 DAYS active Not Available Not Available No t Available hydrochloro thiazide 12.5 mg tablet TAKE 1 TABLET BY MOUTH EVERY DAY 04/06 completed Not Available Not Available Not Available venlafaxine ER 37.5 mg tablet,exte nded release 24 hr TAKE 1TAB BY MOUTH EVERY MORNING X1WEEK, THEN INCREASE TO 2TABS EVERY MORNING. DONT CRUSH/GLORIA W/SPLIT active Not Available Not Available No t Available GaviLyte-G 236 gram-22.74 gram-6.74 gram-5.86 gram oral solution PER INSTRUCTI ONS FROM GI. 04/06 completed Not Available Not Available Not Available blood pressure test kit-large cuff USE TO CHECK BLOOD PRESSURE ONCE DAILY AND NEEDED 04/06 completed Not Available Not Available Not Available Wixela Inhub 500 mcg-50 mcg/dose powder for inhalation TAKE 1 PUFF BY MOUTH EVERY 12 HOURS active Not Available Not Available No t Available Vitals Date Recorded Body height Body weight Provider Name and Address Organization Details Last Updated DateTime 04/06/2024 162.56 cm 20499.74 g Nya Quintero [place] - [facility] 04/06/2024 09:18:06 Date Recorded Body height Body weight Provider Name and Address Organization Details Last Updated DateTime 05/18/2024 162.56 cm 39681.74 g Nya Quintero [place] - [facility] 05/18/2024 09:37:08 Social History None recorded. Functional Status None recorded. Mental Status None recorded. Family History Nothing Reported. Medical History Condition Response Hypertension Y Asthma Y GERD/Reflux Y High Cholesterol Y Past Encounters Encounter ID Performer Location Encounter Start Date Encounter Closed Date Diagnosis/Indication Diagnosis SNOMED-CT Code Diagnosis ICD10 Code Diagnosis Note [id number] GILBERTO SHEA MD [facility] [address] [address] 04/06/2024 09:02:49 04/06/2024 11:39:57 [place] palsy of left side of face [id number] 5183077 G51.0 Patient has a rather significan t left-sided Sam's palsy. He should continue on the high-dose prednisone regimen as prescribed at [facility] [place]. He was provided 10 days of prednisone 60 mg, so I will provide him an additional 6 days which will include taper. Recommende d keeping the left eyelid taped shut at nighttime to prevent drying. He has no signs of conjunctiv itis today. He may use lubricatin g eyedrops as needed for dryness. Nasopharyngitis 89598518 J00 The prominence of the nasopharyn geal soft tissues noted on MRI scan and physical exam appears to be secondary to nasopharyn gitis rather than a neoplastic process. This could explain the evidence of mild eustachian tube dysfunctio n noted on recent CAT scan. 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 s loping to a mild slopi ng to a moderate s loping to moderately severe slo ping to severe slo ping to profound f lat high frequency low frequency mid frequency cookie bite sam curve slop ing to a moderate #}} {{with sen sorineural hearing loss with* cond uctive hearing loss with mixed hearing loss with}} {{excellen t* good fa ir poor no measurable }} word recognitio n. Left ear: {{Normal N ormal through 2 kHz Mild* Moderate M oderately- severe Sev ere Profou nd}} {{hearing hearing. s loping to a mild slopi ng to a moderate s loping to moderately severe slo ping to severe slo ping to profound f lat high frequency low frequency mid frequency cookie bite sam curve risi ng to normal sloping to profouns #}} {{with sen sorineural hearing loss with condu ctive hearing loss with mixed hearing loss with*}} {{excellen t* good fa ir poor no measurable }} word recognitio n. Tympanomet ry: Right Ear:{{Type A* Type As Type Ad Type C Type C, shallow & rounded Ty pe B Type B with large volume Cou ld not maintain a hermetic seal}} Left Ear:{{Type A Type As Type Ad Type C Type C, shallow & rounded Ty pe B* Type B with large volume Cou ld not maintain a hermetic seal}} Sensorineu ral hearing loss in right ear 9959134405 9100 H90.A21 [id number] GILBERTO SHEA MD [facility] [address] [address] 05/18/2024 09:11:10 05/18/2024 10:56:06 [place] palsy of left side of face 8837896525 5290700 G51.0 Allergic rhinitis 070938 04 J30.9 Dysfunctio n of left eustachian tube 0916944235 394764 H69.92 Left ear is looking much better today with regards to eustachian tube function. Nasopharyn goscopy today has ruled out any nasopharyn geal pathology other than allergic rhinitis and mild residual nasopharyn gitis. Recommend daily use of fluticason e nasal spray. Specific instructio ns provided via [employer] interprete r on how to use this medication appropriat enmanuel. He may use this indefinite ly as needed. Sensorineu ral hearing loss of bilateral ears 142448797 H90.3 Audiometri c testing:Le ft Ear:Normal hearing through 3K Hz sloping to a severe SNHL .Type As tympanogra m, rounded. Today's left-sided hearing test compared to previous test. The previously noted conductive component of the hearing loss has resolved with resolution of middle ear effusion. Health Concerns Section Related Observation LastModified by Organization Jael melchor LastModified Time None Recorded Concern Status LastModified by Organization Details LastModified Time None Recorded Advance Directives Directive None Recorded Payers Encounter Date Sequence Insurance Name Policy Number Policy [place] Covered Member ID [place] Member ID Guarantor Name 04/06/2024 1 [facility] - DOS ON OR AFTER 2022 - ONE CARE (MEDICARE REPLACEMENT/ADV ANTAGE - HMO) Margarito Laureano David [id number] Margarito David 05/18/2024 1 [facility] - DOS ON OR AFTER 2022 - ONE CARE (MEDICARE REPLACEMENT/ADV ANTAGE - HMO) Margarito Lauraeno David [id number] Margarito David Notes Date Note Type Note Provider Name and Address Organization Details Recorded Time 04/06/2024 text/html 54-year-old male who presented to [facility] emergency room on Mar 31 with facial paresis associated with apparent middle ear and mastoid infection. He noted left ear pain for 1 week prior to that visit, was seen at [facility] and [facility] with complaints of sudden onset dizziness, nausea and vomiting. He was noted to have R nystagmus at the time of presentation. He had a hyperacute stroke workup on 03/27 which also included MRI scan of the brain without contrast. No intracranial vascular pathology noted. I did review the CAT scan of the head from 03/27 which showed minimal opacification of the left middle ear and mastoid, no signs of acute otitis media or mastoiditis. The MRI scan this showed some T2 signal within the left mastoid air cells, as well as prominence of the nasopharyngeal soft tissues.When he was seen on Mar 31 at [facility] there was a CAT scan of the temporal bones that I was able to review personally. There was scattered opacification of the left mastoid, more so than the [facility] CAT scan, with partial opacification of the middle ear. Patient treated with antibiotics and a high dose prednisone regimen per my recommendation. Patient follows up today for reevaluation. He thinks that the facial function on the left is a little better than it was last week. His balance seems back to normal. Left ear feels mildly blocked. He reports that he is taking the medication that he was prescribed.Patient has history of right-sided Sam's palsy in 2018. This resolved without any treatment at that time. GILBERTO SHEA MD [address] [place] [address], [place], [address], [place] - [facility] 04/06/2024 11:05:36 05/18/2024 text/html Patient who I sa w back in early April 2024 with left-sided facial weakness, likely due to viral etiology, consistent with Sam's palsy. Patient was treated with 16-day course of high-dose prednisone with taper. Prior history of right sided Sam's palsy in 2018. Patient appears to have underlying eustachian tube dysfunction based on recent CAT scan.Patient reports that the facial function came back within a week or 2 after he was last seen by me.Patient does complain of nasal obstruction particularly in cold weather. He thinks that the hearing in the left ear has improved, though it still has intermittent pressure sensation that comes and goes. GILBERTO SHEA MD [address] [facility], [place], [address], [facility] - [facility] 05/18/2024 10:56:51
--- OUTSIDE RECORDS SUMMARY | 2024-07-16 15:33 | XMS_ITS | Encounter Summary ---
Author Organization [employer] Address [address] [facility] [address] [place] [address] Care Team Providers Care Elderly Sitter Name Role Phone Hina Evans MD Primary Care Provider John Hartley PharmD Unavailable [phone] Reason for Visit * Reason Onset Date Comments Hospital Follow-up 03/30/2024 Encounter Details Date Type Department Care Team ([facility] st Contact Info) Description 03/30/2024 Telephone [facility] [address] [place], [place] [phone] Hina Evans MD [address] [place], [place] [phone] Hospital Follow-up Social History Tobacco Use Types Packs/Day Years [...] encounter Miscellaneous Notes * Telephone Encounter - Diego Damian - 03/30/2024 8:13 AM EST Tc from pt requesting a HDF appt. Hospital: [facility] Date of admission: 03/27 Discharge date: 03/29 Diagnosed: dyslipidemia and Ear Infection And Diarrhea Contact pt Spouse at [phone] *Send message to [facility] Clinical Care Coordinators documented in this encounter Plan of Treatment Upcoming Encounters Date Type Department Care Team (Late st Contact Info) Description 07/21/2024 10:00 AM EDT Nurse Only [facility] [address] [place] [address] 01/21/2025 1:00 PM EDT Medication Management [facility] [address] [place] [address] John Hartley PharmD [address] [place] [address] documented as of this encounter Goals Goal [...] documented as of this encounter Care Teams Elderly Sitter Relationship Specialty Start Date End Date Hina Evans MD [address] [place] [address] PCP - General Family Medicine 05/05/18 John Hartley, BrianD [address] [place] [address] Pharmacist Internal Medicine 09/10/23 documented as of this encounter
--- OUTSIDE RECORDS SUMMARY | 2024-07-16 15:33 | XMS_ITS | Encounter Summary ---
Author Organization [email or web address] Address [address] [facility] 7[address] [place] [address] Care Team Providers Care Windows Administrator Name Role Phone Hina Evans MD Primary Care Provider [phone] John Hartley PharmD Unavailable [phone] Encounter Details Date Type Department Care Team ([facility] st Contact Info) Description 07/04/[address] [facility] [address] [place], [place] [phone] Hina Evans MD [address] [place], [place] [phone] Hypertension, unspecified type (Primary Dx) Social History Tobacco Use Types Packs/Day Years [...] Description 07/21/2024 10:00 AM EDT Nurse Only [facility] [address] [place] [address] 01/21/2025 1:00 PM EDT Medication Management [facility] [address] [place] [address] John Hartley PharmD [address] [place] [address] documented as of this encounter Visit Diagnoses Diagnosis Hypertension, unspecified type- Primary documented in this encounter Care Teams Windows Administrator Relationship Specialty Start Date End Date Hina Evans MD [address] [place] [address] PCP - General Family Medicine 05/05/18 John Hartley, PharmD [address] [place] [address] Pharmacist Internal Medicine 09/10/23 documented as of this encounter
--- OUTSIDE RECORDS SUMMARY | 2024-07-16 15:33 | XMS_ITS | Encounter Summary ---
Author Organization [employer] Address [address] [facility] [address] [place] [address] Care Team Providers Care Senior Mechanical Technician Name Role Phone Hina Evans MD Primary Care Provider [phone] John Hartley PharmD Unavailable [phone] Encounter Details Date Type Department Care Team ([facility] st Contact Info) Description 05/27/2023 Orders Only [facility] [address] [place], [place] [phone] Hina Evans MD [address] [place], [place] [phone] Social History Tobacco Use Types Packs/Day Years [...] Description 07/21/2024 10:00 AM EDT Nurse Only [facility] [address] [place] [address] 01/21/2025 1:00 PM EDT Medication Management [address] [address] John Hartley, PharmD [address] [place] [address] documented as of this encounter Visit Diagnoses Not on filedocumented in this encounter Care Teams Senior Mechanical Technician Relationship Specialty Start Date End Date Hina Evans MD [address] [place] [address] PCP - General Family Medicine 05/05/18 John Hartley, PharmD [address] [place] [address] Pharmacist Internal Medicine 09/10/23 documented as of this encounter
[2024-07-16 16:48] LABS: Anion Gap 12 (12-20); Blood Urea Nitrogen 15 mg/dL (9-16); Calcium 9.6 mg/dL (8.4-10.2); Carbon Dioxide 26 mmol/L (22-29); Chloride 107 mmol/L (96-108); Estimated Glomerular Filt Rate > 60; Glucose Random 97 mg/dL (60-115); Potassium 3.5 mmol/L (3.3-5.1); Sodium 141 mmol/L (135-145)
== END 2024-07-16 13:49 | disposition home or self-care (01) ==
LOC: HO.HHCL 13:48
PROVIDERS: Visit Provider Family Medicine
DX: I10 Essential (primary) hypertension (principal)
CPT/HCPCS: 36415; 80048

== ENCOUNTER 2025-02-17 11:17 | Outpatient (REF) | payer OTHER, SELFPAY ==
--- NOTE | ~2025-02-17 | XR_ITS ---
EXAMINATION: XR LUMBOSACRAL SPINE CLINICAL INFORMATION: Pain. COMPARISON: None available. TECHNIQUE: Three views of the lumbosacral spine. FINDINGS: 5 lumbar type vertebral bodies. No evidence of acute fracture or spondylolisthesis. Vertebral body heights are maintained. Multilevel disc degenerative disease, with endplate osteophytes. No suspicious bony lesions. Multilevel facet degeneration. Aortic vascular calcifications. SI joints are symmetric. XR/XR lumbar spine 2-3V IMPRESSION: No acute osseous findings. Lumbar spondylosis.. Electronically signed by: Chris Estes MD 02/17/2025 12:12 PM EDT
--- OUTSIDE RECORDS SUMMARY | 2025-02-17 10:15 | XMS_ITS | Encounter Summary ---
Author Organization [employer] Address [address] [facility] [address] [place] [address] Care Team Providers Care Chucking And Sawing Machine Operator Name Role Phone Hina Evans MD Primary Care Provider [phone] John Hartley PharmD Unavailable [phone] Encounter Details Date Type Department Care Team (Late st Contact Info) Description 02/17/2025 10:15 AM EDT Office Visit [facility] [address] [place], [place] [phone] Theresa Goldman NP [address] [place] [address] Chronic low back pain, unspecified back pain laterality, unspecified whether sciatica present (Primary Dx); Elevated blood pressure reading in office with diagnosis of hypertension Social History Tobacco Use Types Packs/Day Years [...] housing situation today? I have shaji david 12/30/[address] you li ve. Do you have problems with any of the following? None of the above 12/30/2024 Food Insecurity Answer Date Recorded Within the past 12 months, y ou worried that your food would run out before you got money to buy more: Never True 12/30/2024 Within the past 12 months,th e food you bought just didn't last and you didn't have enough money to get more: Never True Transportation Answer Date Recorded In the past 12 months, has l ack of transportation kept you from medical appts, meetings, work or from getting things needed for daily living? No 12/30/2024 Utilities Answer Date Recorded In the past 12 months, has t he electric, gas, oil or water company threatened to shut off services in your home? No 12/30/2024 Depression Answer Date Recorded Patient Health Questionnaire-2 Score 1 02/19/2024 Internet Access Answer Date Recorded Internet Access Q1 Yes 12/30/2024 Internet Access Q2 Not on file 12/30/2024 Sex and Gender Information Value Date Recorded Sex Assigned at Male 2022 10:19 AM EDT Legal Sex Male 10:19 AM EDT Gender Identity Male 2022 10:19 AM EDT Sexual Orientation Straight 2022 10 :19 AM EDT documented as of this encounter Last Filed Vital Signs Vital Sign Reading Time Taken Comments Blood Pressure 138/76 02/17/2025 11:07 AM EDT Pulse 79 02/17/2025 10:37 AM EDT Temperature 36.1 C (96.9 F) 02/17/2025 10:37 AM EDT Respiratory Rate 14 02/17/2025 10:37 AM EDT Oxygen Saturation 97% 02/17/2025 10:37 AM EDT Inhaled Oxygen Concentration - - Weight 90.8 kg (200 lb 3.2 oz) 02/17/2025 10:37 AM EDT Height 162.6 cm (5' 4 ) 02/17/2025 10:37 AM EDT Body Mass Index 34.36 02/17/2025 10:37 AM EDT documented in this encounter Miscellaneous Notes * Assessment & Plan Note - Theresa Goldman NP - 02/17/2025 10:15 AM EDTAssociated Problem(s): Chronic back pain documented in this encounter Plan of Treatment Upcoming Encounters Date Type Department Care Team (Late st Contact Info) Description 02/25/2025 10:30 AM EDT Telemedicine [facility] [address] [place] [address] John Hartley PharmD [address] [place] [address] 03/30/2025 10:15 AM EST Office Visit [facility] [address] [place] [address] Hina Evans MD [address] [place] [address] documented as of this encounter Goals Goal Patient Goal Type Associated Problems Recent Progress Patient-Stated? Author Blood Pressure < 140/90 Blood Pressure 138/76( 025 11:07 AM EDT) No John Hartley PharmD documented as of this encounter Procedures Procedure Name Priority Date/Time Associated Diagnosis Comments XR LUMBAR SPINE 2-3 VIEWS Routine 02/17/2025 11:55 AM EDT Chronic low back pain, unspecified back pain laterality, unspecified whether sciatica present documented in this encounter Results * XR Lumbar Spine 2-3 Views (02/17/2025 11:55 AM EDT) Anatomical Region Laterality Modality Spine, L-spine Radiographic Bridgett ging 02/17/2025 11:5 5 AM EDT Narrative 02/17/2025 12:15 PM EDT [address] [address] XRay Report Signed Patient: Margarito Hernandez MR#: [id number] [birth year] : 1970 Acct:[id number] Age/Sex: 54 / M ADM Date: 02/17/25 Loc: .[facility] Attending Dr: Theresa Goldman Ordering Physician: Theresa Goldman Date of Service: 02/17/25 Procedure(s): XR lumbar spine 2-3V Accession Number(s): [id number] cc: Theresa Goldman; Hina Evans MD Reason for Exam: pain EXAMINATION: XR LUMBOSACRAL SPINE CLINICAL INFORMATION: Pain. COMPARISON: None available. TECHNIQUE: Three views of the lumbosacral spine. FINDINGS: 5 lumbar type vertebral bodies. No evidence of acute fracture or spondylolisthesis. Vertebral body heights are maintained. Multilevel disc degenerative disease, with endplate osteophytes. No suspicious bony lesions. Multilevel facet degeneration. Aortic vascular calcifications. SI joints are symmetric. XR/XR lumbar spine 2-3V IMPRESSION: No acute osseous findings. Lumbar spondylosis.. Electronically signed by: Chris Estes MD 02/17/2025 12:12 PM EDT Dictated By: Chris Estes MD Signed By: <Electronically signed by Chris Estes MD in OV> 02/17/25 1212 DD/ 1155 TD/TT: 02/17/25 1159 Ships Equipment Engineer: MIRELA Procedure Note Donotuseinterpreter, Image - 02/17/2025 [place] [address] XRay Report Signed Patient: Margarito Hernandez MMR#: [id number] 66 : 1970Acct:[id number] Age/Sex: 54 / MADM Date: 02/17/25 Loc: [facility] Attending Dr: Theresa Goldman Ordering Physician: Theresa Goldman Date of Service: 02/17/25 Procedure(s): XR lumbar spine 2-3V Accession Number(s): [id number] cc: Theresa Goldman; Hina Evans MD Reason for Exam: pain EXAMINATION: XR LUMBOSACRAL SPINE CLINICAL INFORMATION: Pain. COMPARISON: None available. TECHNIQUE: Three views of the lumbosacral spine. FINDINGS: 5 lumbar type vertebral bodies. No evidence of acute fracture or spondylolisthesis. Vertebral body heights are maintained. Multilevel disc degenerative disease, with endplate osteophytes. No suspicious bony lesions. Multilevel facet degeneration. Aortic vascular calcifications. SI joints are symmetric. XR/XR lumbar spine 2-3V IMPRESSION: No acute osseous findings. Lumbar spondylosis.. Electronically signed by: Chris Estes MD 02/17/2025 12:12 PM EDT RP Dictated By: Chris Estes MD Signed By: <Electronically signed by Chris Estes MD in OV> 02/17/25 1212 DD/ 1155 TD/TT: 02/17/25 1159 Ships Equipment Engineer: MIRELA us Theresa Goldman SCHEDULING AGENT IMG XR PROCEDURES Edited Result - Final documented in this encounter Visit Diagnoses Diagnosis Chronic low back pain, unspecified back pain laterality, unspecified whether sciatica present- Primary Elevated blood pressure reading in office with diagnosis of hypertension documented in this encounter Additional Health Concerns Assessment Noted Time PHQ-9 Depression Total Score: 3 02/19/20 24 11:21 AM EDT documented as of this encounter Care Teams Chucking And Sawing Machine Operator Relationship Specialty Start Date End Date Hina Evans MD [address] [place] [address] PCP - General Family Medicine 05/05/18 John Hartley, BrianD [address] [place] [address] Pharmacist Internal Medicine 09/10/23 documented as of this encounter
--- OUTSIDE RECORDS SUMMARY | 2025-02-17 14:29 | XMS_ITS | Clinical Summary ---
Author Organization [facility] Address [address] [place] [address] Care Team Providers Care Mortgage Loan Counselor Name Role Phone Unavailable Primary Care Provider [...] Health Maintenance Due Date Last Done Comments Anxiety Screening 1970 Dental Prophy 1970 Hepatitis C Screening 1970 Lipid Screening 1970 Tobacco Screening 1970 Hypertension Screening (#1) 1987 Medicare Annual Wellness Visit 1987 Imm-Hepatitis B (1 of 3 - 19 + 3-dose series) 1988 11/07/2010, 05/08/2010, 02/14/2010 CT Colonography 2014 Colonoscopy 2014 Colorectal Cancer Screening 2014 FIT/gFOBT 2014 Fecal DNA 2014 Flexible Sigmoidoscopy 2014 Imm-Zoster, Recombinant (1 of 2) 2019 Alcohol and Drug Screen 05/05/2024 Depression Annual Screen 05/05/2024 [id number] (1 - season) 2025 Imm-Influenza (#1) 2025 02/06/2024, 0 05/26/2023, 05/31/2022, Additional history exists Dental BW 02/11/2025 02/10/2024 Dental Examination 02/11/2025 02/10/2024 Dental Perio Charting 02/11/2025 02/10/2024 Diabetes Screening 02/09/2027 02/10/2024, 1 , 02/10/2024, Additional history exists Dental FMX/Pano 02/11/2029 02/10/2024 Imm-DTaP/Tdap/Td (3 - Td or Tdap) 08/19/2033 08/20/2023, 07/29/2013, 10/07/2008 HIV Screening Completed 07/20/2020, 07/20/2020 Imm-Pneumococcal 50+ Completed 05/26/2023, 07/29/2013, 02/14/2010 Procedures Procedure Name Priority Date/Time Associated Diagnosis [...] Most Recently Relevant to Health Maintenance Insurance [facility]
--- OUTSIDE RECORDS SUMMARY | 2025-02-17 14:29 | XMS_ITS | Encounter Summary ---
Author Organization [employer] Address [address] [facility] [facility] [address] [place] [address] Care Team Providers Care Circular Stuffer Name Role Phone Hina Evans MD Primary Care Provider [phone] John Hartley PharmD Unavailable [phone] Encounter Details Date Type Department Care Team ([facility] st Contact Info) Description 05/27/2023 Orders Only [facility] [address] [place], [place] [phone] Hina Evans MD [address] [place], [place] [phone] Social History Tobacco Use Types Packs/Day Years [...] Info) Description 02/25/2025 10:30 AM EDT Telemedicine [facility] [address] [place] [phone] John Hartley, PharmD [address] [place] [address] 03/30/2025 10:15 AM EST Office Visit [facility] [address] [place] [address] Hina Evans MD [address] [place] [address] documented as of this encounter Visit Diagnoses Not on filedocumented in this encounter Care Teams Circular Stuffer Relationship Specialty Start Date End Date Hina Evans MD [address] [place] [address] PCP - General Family Medicine 05/05/18 John Hartley, PharmD [address] [place] [address] Pharmacist Internal Medicine 09/10/23 documented as of this encounter
--- OUTSIDE RECORDS SUMMARY | 2025-02-17 14:29 | XMS_ITS | Encounter Summary ---
Author Organization [employer] Address [address] [facility] [address] 7[address] [place] [address] Care Team Providers Care Auger Supervisor Name Role Phone Hina Evans MD Primary Care Provider [phone] John Hartley PharmD Unavailable [phone] Reason for Visit * Reason Onset Date Comments Hospital Follow-up 03/30/2024 Encounter Details Date Type Department Care Team ([facility] st Contact Info) Description 03/30/2024 Telephone [facility] [address] [place], [place] [phone] Hina Evans MD [address] [place], [place] [phone] Hospital Follow-up Social History Tobacco Use Types [...] from pt requesting a HDF appt. Hospital: [facility] Date of admission: 03/27 Discharge date: 03/29 Diagnosed: dyslipidemia and Ear Infection And Diarrhea Contact pt Spouse at [phone] *Send message to [place] Clinical Care Coordinators documented in this encounter Plan of Treatment Upcoming Encounters Date Type Department Care Team ([facility] st Contact Info) Description 02/25/2025 10:30 AM EDT Telemedicine [facility] [address] [place] [phone] John Hartley, PharmD [address] [place] [address] 03/30/2025 10:15 AM EST Office Visit [facility] [address] [place] [address] Hina Evans MD [address] [place] [address] documented as of this encounter Goals Goal Patient Goal Type Associated Problems Recent Progress Patient-Stated? Author Blood Pressure < 140/90 Blood Pressure 138/76( 025 11:07 AM EDT) No John Hartley, PharmD documented as of this encounter Visit Diagnoses Not on filedocumented in this encounter Additional Health Concerns Assessment Noted Time PHQ-9 Depression Total Score: 3 02/19/20 24 11:21 AM EDT documented as of this encounter Care Teams Auger Supervisor Relationship Specialty Start Date End Date Hina Evans MD [address] [place] [address] PCP - General Family Medicine 05/05/18 John Hartley, PharmD [address] [place] [address] Pharmacist Internal Medicine 09/10/23 documented as of this encounter
--- OUTSIDE RECORDS SUMMARY | 2025-02-17 14:29 | XMS_ITS | Data Portability ---
Author Organization [place] [facility] Address [address] [place] [phone] Care Team Providers Care Senior Insight Manager Name Role Phone MAMICareyRAÚL Primary Care Provider Assessment Encounter Date Assessment Date Assessment LastModified by Organization Details LastModified Time 04/06/2024 04/06/2024 30 pages of notes reviewed from [facility], reviewing multiple scans and notes. I suspect [...] infection within the middle ear space today. [email or web address] Not available 04/06/2024 11:04:31 05/18/2024 05/18/2024 Left-sided facial paresis has resolved. Patient has no synkinesis on the left, but he does have some mild synkinesis on the right dating back to his prior history of right sided facial paresis. Not available 05/18/2024 10:16:08 Plan of Treatment Reminders Order Date Submit Date Provider Last Modified By Organization Details Last Modified Time Details Appointments None recorded. Lab None recorded. Referral None recorded. Procedures None recorded. Surgeries None recorded. Imaging None recorded. Medication Orders fluticasone propionate 50 mcg/actuati on nasal spray,suspe nsion 2024 025 [facility][id number], [address] [place], [address], 01/14/202 5 10:12:55 prednisone 20 mg tablet 2023 025 [facility] #[id number], [address] [facility], [place], [address], 5 09:37:40 Patient TargetsNo targets recorded. Patient InstructionsNo instructions recorded. Reason for Referral None Reported. Results Created Date Observation Date Name Description Value Unit Range Abnormal Flag Note LastModifiedBy Organization Detail LastModifiedTime 04/05/20 24 03/31/2024 CT, tempo ral bone, w/o contr ast No observ ation record ed. [email or web address] Not Available 2023 18:16:41 04/06/20 24 audio gram No observ ation record ed. BARCODE Not Available 2023 13:49:02 05/18/19 25 audio gram No observ ation record ed. BARCODE Not Available 2024 13:31:16 Result Notes None recorded. Problems Name Problem SNOMED Code Status Onset Date Resolution Date Notes Provider Name and Address Organization Details Recorded Time [place] palsy of left side of face 3941027094413 9103 Active 2023 GILBERTO SHEA MD [address] [place] [address], [place], [address], [place] - [facility] 4 09:41:29 Nasopharyng itis 98972806 Active 2023 GILBERTO SHEA MD [address] [address], [place], [address], [place] - [facility] 4 09:41:39 Dysfunction of left eustachian tube 2748578055802 106 Active 2023 GILBERTO SHEA MD [address] [place] [address], [place], [address], [place] - [facility] 4 09:44:03 Allergic rhinitis 56705469 Active 2024 GILBERTO SHEA MD [address] [facility],[place] [address], [place], [address], [place] - [facility] 5 10:09:37 Sensorineur al hearing loss of bilateral ears 823920870 Active 2024 GILBERTO SHEA MD [address] [facility],[place] [address], [place], [address], [facility] [place] 10:55:19 Problem Notes None recorded. Procedures Surgical History Date Name Laterality Status Provider Name and Address Organization Details Recorded Time 025 Air & Speech Audio with Tymps - 84480, 00095 & 30580 completed RENAN RUIZ, AUD [address] [facility],[address], [address], [facility] - [facility] 05/18/2024 10:26:39 025 Fiberoptic Nasopharyngoscopy completed GILBERTO HSEA MD [address] [facility],[address], [address], [facility] 05/18/2024 10:08:42 024 Comp Audio with Tymps - 33209 & 70670 completed RICHARD REVELES, AUD [address] [facility],[address], [address], [facility] - [facility] 04/06/2024 10:23:13 024 Fiberoptic Nasopharyngoscopy completed GILBERTO SHEA MD [address] [facility],[address], [address], [facility] - [facility] 04/06/2024 09:41:19 Imaging Results None recorded. Procedure Notes None recorded. Medical Equipment None Reported. Allergies No known drug allergies Medications Name Sig Start Date Stop Date Status Note LastModified by Organization Details LastModified Time amoxicillin 500 mg capsule TAKE 1 CAPSULE BY MOUTH THREE TIMES A DAY FOR 7 DAYS 04/06 completed Not Available Not Available Not [...] Details Last Updated DateTime 05/18/2024 162.56 cm 33444.74 g Nay Quintero [facility] 05/18/2024 09:37:08 Date Recorded Body height Body weight Provider Name and Address Organization Details Last Updated DateTime 04/06/2024 162.56 cm 44692.74 g Nya Quintero [place] [facility] 04/06/2024 09:18:06 Social History None recorded. Functional Status None recorded. Mental Status None recorded. Family History Nothing Reported. Medical History Condition Response Hypertension Y Asthma Y GERD/Reflux Y High Cholesterol Y Past Encounters Encounter ID Performer Location Encounter Start Date Encounter Closed Date Diagnosis/Indication Diagnosis SNOMED-CT Code Diagnosis ICD10 Code Diagnosis IMO Codes Diagnosis Note [id number] GILBERTO SHEA MD [facility] [address] [address] 04/06/2024 09:02:49 04/06/2024 11:39:57 [place] palsy of left side of face [id number] 2249316 G51.0 Patient has a rather significan t left-sided Sam's palsy. He should continue on the high-dose prednisone regimen as prescribed at [facility]. He was provided 10 days of prednisone 60 mg, so I will provide him an additional 6 days which will include taper. Recommende d keeping the left eyelid taped shut at nighttime to prevent drying. He has no signs of conjunctiv itis today. He may use lubricatin g eyedrops as needed for dryness. Nasopharyngitis 89666806 J00 The prominence of the nasopharyn geal soft tissues noted on MRI scan and physical exam appears to be secondary to nasopharyn gitis rather than a neoplastic process. This could explain the evidence of mild eustachian tube dysfunctio n noted on recent CAT scan. 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 Left ear: Mild rising to normal sloping to profouns mixed hearing loss with excellent word recognitio n. Tympanomet ry: Right Ear:Type A Left Ear:Type B Sensorineu ral hearing loss in right ear 6694292451 9100 H90.A21 [id number] GILBERTO SHEA MD [facility] [address] [address] 05/18/2024 09:11:10 05/18/2024 10:56:06 [place] palsy of left side of face 6587862000 0186444 G51.0 Allergic rhinitis 076943 04 J30.9 Dysfunctio n of left eustachian tube 2719586940 521036 H69.92 Left ear is looking much better today with regards to eustachian tube function. Nasopharyn goscopy today has ruled out any nasopharyn geal pathology other than allergic rhinitis and mild residual nasopharyn gitis. Recommend daily use of fluticason e nasal spray. Specific instructio ns provided via Urdu interprete r on how to use this medication appropriat enmanuel. He may use this indefinite ly as needed. Sensorineu ral hearing loss of bilateral ears 288105039 H90.3 Audiometri c testing:Le ft Ear:Normal hearing through 3K Hz sloping to a severe SNHL .Type As tympanogra m, rounded. Today's left-sided hearing test compared to previous test. The previously noted conductive component of the hearing loss has resolved with resolution of middle ear effusion. Health Concerns Section Related Observation LastModified by Organization Detai ls LastModified Time None Recorded Concern Status LastModified by Organization Details LastModified Time None Recorded Advance Directives Directive None Recorded Payers Insurance Date Sequence Insurance Name Policy Number Policy Garland Covered Member ID Garland Member ID Guarantor Name 05/18/2024 1 [facility] - DOS ON OR AFTER 2022 - ONE CARE (MEDICARE REPLACEMENT/ADV ANTAGE - HMO) Margarito Hernandez [id number] Margarito Hernandez Notes Date Note Type Note Provider Name and Address Organization Details Recorded Time 04/06/2024 text/html 54-year-old male who presented to [facility] emergency room on Mar 31 with facial paresis associated with apparent middle ear and mastoid infection. He noted left ear pain for 1 week prior to that visit, was seen at [facility] with complaints of sudden onset dizziness, [...] he was seen on Mar 31 at [facility] there was a CAT scan of the temporal bones that I was able to review personally. There was scattered opacification of the left mastoid, more so than the [facility] CAT scan, with partial opacification of [...] treatment at that time. GILBERTO SHEA MD [address] [facility],[address], [address], [place] - [facility] 04/06/2024 11:05:36 05/18/2024 text/html Patient who I saw back in early April 2024 with left-sided [...] that comes and goes. GILBERTO SHEA MD [address] [place] [address],[address], [address], [facility] - [facility] 05/18/2024 10:56:51
--- OUTSIDE RECORDS SUMMARY | 2025-02-17 14:29 | XMS_ITS | Encounter Summary ---
Author Organization [facility] Address [address] [facility] [address] [place] [address] Care Team Providers Care Rope Silica Machine Operator Name Role Phone Hina Evans MD Primary Care Provider [phone] John Hartley PharmD Unavailable [phone] Reason for Visit * Reason Onset Date Comments Call Back Request 06/04/2023 Encounter Details Date Type Department Care Team ([facility] st Contact Info) Description 06/04/2023 Telephone [facility] [address] [place], [place] [phone] Hina Evans MD [address] [place], [place] [phone] Call Back Request Social History Tobacco Use [...] in nicotine patches. Please contact pt at [phone]. documented in this encounter Plan of Treatment Upcoming Encounters Date Type Department Care Team (Late st Contact Info) Description 02/25/2025 10:30 AM EDT Telemedicine [facility] [address] [place] [address] John Hartley, PharmD [address] [place] [address] 03/30/2025 10:15 AM EST Office Visit [facility] [address] [place] [address] Hina Evans MD [address] [place] [address] documented as of this encounter Visit Diagnoses Not on filedocumented in this encounter Care Teams Rope Silica Machine Operator Relationship Specialty Start Date End Date Hina Evans MD [address] [place] [address] PCP - General Family Medicine 05/05/18 John Hartley, BrianD [address] [place] [address] [place] [address] Pharmacist Internal Medicine 09/10/23 documented as of this encounter
--- OUTSIDE RECORDS SUMMARY | 2025-02-17 14:29 | XMS_ITS | Encounter Summary ---
Author Organization [employer] Address [address] [facility] 7t [place] [address] Care Team Providers Care Bacteriologist Dairy Name Role Phone Hina Evans MD Primary Care Provider [phone] John Hartley PharmD Unavailable [phone] Reason for Referral * Imaging (Routine) - Closed Specialty Diagnoses / Procedures Referred By Contac t Referred To Contact Cardiology Diagnoses Pain in both lower extremities Claudication (CMS/HCC) Peripheral vascular disease (CMS/HCC) Procedures [facility] Lower Extremity Arterial Duplex Bilateral With Ashlie Hina Evans MD [address] [place] [address] Phone: tel: fax: [address] Phone: tel: fax: Referral ID Status Reason Start Date Expiration Date V isits Requested Visits Authorized [id number] Closed Perform Procedure 08/26/2023 08/25/2024 1 1 Encounter Details Date Type Department Care Team (Late st Contact Info) Description 08/26/2023 Orders Only [facility] [address] [place], [place] [phone] Hina Evans MD [address] [place], [place] [phone] Pain in both lower extremities (Primary Dx); [...] Info) Description 02/25/2025 10:30 AM EDT Telemedicine [facility] [address] [place] [phone] John Hartley, PharmD [address] [place] [address] 03/30/2025 10:15 AM EST Office Visit [facility] [address] [place] [address] Hina Evans MD [address] [place] [address] documented as of this encounter Visit Diagnoses Diagnosis Pain in both lower extremities- Primary Claudication (CMS/HCC) Unspecified peripheral vascular disease Peripheral vascular disease (CMS/HCC) Unspecified peripheral vascular disease documented in this encounter Additional Health Concerns Assessment Noted Time PHQ-9 Depression Total Score: 9 07/07/19 24 3:03 PM EST documented as of this encounter Care Teams Bacteriologist Dairy Relationship Specialty Start Date End Date Hina Evans MD [address] [place] [address] PCP - General Family Medicine 05/05/18 John Hartley, PharmD [address] [place] [phone] Pharmacist Internal Medicine 09/10/23 documented as of this encounter
--- OUTSIDE RECORDS SUMMARY | 2025-02-17 14:29 | XMS_ITS | Encounter Summary ---
Author Organization [employer] Address [address] [facility] 7t [place] [address] Care Team Providers Care Nutrition Representative Name Role Phone Hina Evans MD Primary Care Provider [phone] John Hartley PharmD Unavailable [phone] Reason for Visit * Reason Comments Med Refill Encounter Details Date Type Department Care Team ([facility] st Contact Info) Description 10/06/[address] [facility] [address] [place], [place] [phone] Hina Evans MD [address] [place], [place] [phone] Social History Tobacco Use Types Packs/Day Years [...] Info) Description 02/25/2025 10:30 AM EDT Telemedicine [facility] [address] [place] [phone] John Hartley PharmD [address] [place] [phone] 03/30/2025 10:15 AM EST Office Visit [facility] [address] [place] [address] Hina Evans MD [address] [place] [address] documented as of this encounter Goals Goal [...] documented as of this encounter Care Teams Nutrition Representative Relationship Specialty Start Date End Date Hina Evans MD [address] [place] [address] PCP - General Family Medicine 05/05/18 John Hartley, PharmD [address] [place] [address] Pharmacist Internal Medicine 09/10/23 documented as of this encounter
--- OUTSIDE RECORDS SUMMARY | 2025-02-17 14:29 | XMS_ITS | Encounter Summary ---
Author Organization [employer] Address [address] [facility] [address] 7[address] [place] [address] Care Team Providers Care Second Grade Teacher Name Role Phone Hina Evans MD Primary Care Provider [phone] John Hartley PharmD Unavailable [phone] Encounter Details Date Type Department Care Team (Late st Contact Info) Description 06/06/2023 Orders Only [facility] [address] [place], [place] [phone] Hina Evans MD [address] [place], [place] [phone] Social History Tobacco Use Types Packs/Day Years [...] Description 02/25/2025 10:30 AM EDT Telemedicine [facility] [address] [place] [phone] John Hartley, PharmD [address] [place] [phone] 03/30/2025 10:15 AM EST Office Visit [facility] [address] [place] [address] Hina Evans MD [address] [place] [phone] documented as of this encounter Visit Diagnoses Not on filedocumented in this encounter Care Teams Second Grade Teacher Relationship Specialty Start Date End Date Hina Evans MD [address] [place] [phone] PCP - General Family Medicine 05/05/18 John Hartley, PharmD [address] [place] [phone] Pharmacist Internal Medicine 09/10/23 documented as of this encounter
--- OUTSIDE RECORDS SUMMARY | 2025-02-17 14:29 | XMS_ITS | Clinical Summary ---
Author Organization [facility] Address [address] [place] [address] Phone Care Team Providers Care Superintendent Geophysical Laboratory Name Role Phone Hina Evans MD Primary Care Provider [phone] Allergies No known active allergies Medications simvastatin [...] (six) hours if needed for wheezing. Active Encounters Date Type Department Care Team Description 12/18/2024 3:17 PM EDT - 12/18/2024 6:38 PM EDT Emergency [facility] Emergency [address] [place] [address] Generalized abdominal pain (Primary Dx); Hypokalemia Discharge Disposition: Home or Self Care from Last 3 Months Medical History Medical History Date Comments Chronic back pain, unspecifi ed back location, unspecified back pain laterality Hypertension Social History Tobacco Use Types Packs/Day Years Used Date Smoking Tobacco: Former Cigarettes Smokeless Tobacco: Never Tobacco Cessation:Counseling Given: Not Answered Alcohol Use [...] Sign Reading Time Taken Comments Blood Pressure 106/64 12/18/2024 5:31 PM EDT Pulse 64 12/18/2024 5:31 PM EDT Temperature 36.8 C (98.2 F) 12/18/2024 5:31 PM EDT Respiratory Rate 14 12/18/2024 5:31 PM EDT Oxygen Saturation 96% 12/18/2024 5:31 PM EDT Inhaled Oxygen Concentration - - Weight 87.1 kg (192 lb) 12/18/2024 1:56 PM EDT Height 162.6 cm (5' 4 ) 12/18/2024 1:56 PM EDT Body Mass Index 32.96 12/18/2024 1:56 PM EDT Plan of Treatment Health Maintenance Due Date Last Done Comments Colorectal Cancer Screening: Colonoscopy 1969 Hepatitis B Vaccines (1 of 3 - 19+ 3-dose series) 1988 11/07/2010, 05/08/2010, 02/14/2010 RSV Immunization Adult Patients (1 - Risk 50-74 years 1-dose series) 2019 Hepatitis C Screening 04/07/2022 Medicare Annual Wellness Visit 04/07/2022 Social Influencers of Health Screening 04/07/2022 Depression Screening 05/05/2024 Zoster Vaccines (2 of 2) 09/15/2024 07/21/2024 Influenza Vaccine (#1) 2025 , 05/26/2023, 05/31/2022, Additional history exists Hypertension/CHF/CAD Annual BMP Blood Test 12/18/2025 12/18/2024, 02/10/2024 Cholesterol Screening (Lipid Panel) 05/12/2029 05/12/2024 DTaP,Tdap,and Td Vaccines (4 - Td or Tdap) 08/19/2033 08/20/2023, 07/29/2013, 10/07/2008 Hepatitis A Vaccines Aged Out 11/07/2010, 02/15/20 10 No longer eligible based on patient's age to complete this topic HIV Screening Completed 07/20/2020 Pneumococcal Vaccine: 50+ Years Completed 05/26/2023, 07/29/2013 COVID-19 Vaccine Completed 02/19/2024, 12/2020, 09/13/2020, Additional [...] age to complete this topic Meningococcal B Vaccine Aged Out No l onger eligible based on patient's age to complete this topic RSV Immunization Patients Under 20 months Aged Out No longer eligible based on patient's age to complete this topic Varicella Vaccines Aged Out No longer eligible based on patient's age to complete this topic Procedures Procedure Name Priority Date/Time Associated Diagnosis Comments ECG ANNOTATED 12/20/2024 ECG 12-LEAD STAT 12/18/2024 5:[address] ABDOMEN PELVIS W CONTRAST STAT 12/18/2024 4:41 PM EDT MAGNESIUM Add-On 12/18/2024 2:07 PM EDT LIPASE STAT Add-on 12/18/2024 2:07 PM EDT CBC WITH AUTO DIFFERENTIAL STAT 12/18/2024 2:07 PM EDT COMPREHENSIVE METABOLIC PANEL STAT 12/18/2024 2:07 PM EDT CBC AND DIFFERENTIAL STAT 12/18/2024 2:07 PM EDT BROWNE URINE CULTURE TUBE STAT 12/18/2024 2:05 PM EDT URINALYSIS WITH REFLEX MICROSCOPIC AND CULTURE STAT 12/18/2024 2:05 PM EDT URINALYSIS WITH REFLEX MICROSCOPIC AND CULTURE STAT 12/18/2024 2:05 PM EDT from Last 3 Months Results * ECG-Annotated (12/20/2024) Provider Onbase ECG ORDERABLES Final Result * ECG 12 lead (12/18/2024 5:02 PM EDT) Ventricular Rate ECG 63 BPM GEMUSE Atrial Rate 63 BPM GEMUSE P-R Interval 148 ms GEMUSE QRS Duration 92 ms GEMUSE Q-T Interval 430 ms GEMUSE QTc 440 ms GEMUSE P Wave Gibson 39 degrees GEMUSE R Gibson 5 degrees GEMUSE T Gibson -12 degrees GEMUSE ECG Interpretation Normal sinus rhythm T wave abnormality, consider inferior ischemia Abnormal ECG When compared with ECG of 15-DEC-2023 22:20, T wave amplitude has decreased in Lateral leads Confirmed by ROBIN MEDINA ([id number]) on 12/19/2024 9:28:02 AM GEMUSE 12/18/2024 5:02 PM EDT 12/19/2024 9:28 AM EDT Raúl JI ECG ORDERABLES Final Res ult GEMUSE * CT Abdomen Pelvis w Contrast (12/18/2024 4:41 PM EDT) Anatomical Region Laterality Modality Body Computed Tomogra phy 12/18/2024 5:40 PM EDT Impressions 12/18/2024 5:40 PM EDT No acute findings. Additional findings as described. This document has been electronically signed by: Edgardo Olvera MD on 12/18/2024 17:40:05 Narrative 12/18/2024 5:40 PM EDT INDICATION: Abdominal pain, hernia suspected CT abdomen and pelvis with contrast Comparison: None provided Findings: Esophageal mural thickening with decompression, nonspecific. Tiny paraesophageal nodes, nonspecific. Atelectasis. Coronary artery calcifications. Hepatomegaly with steatosis Contracted gallbladder. Bilateral perinephric stranding, nonspecific. Bilateral hypodense renal cysts. No urolithiasis or hydronephrosis. No bowel obstruction, pneumoperitoneum, or pneumatosis. Fat containing inguinal hernias. Prominent inguinal nodes, may be reactive. Normal appendix. Osteopenia. Focal left-sided 1.1 cm lucency noted at T12, nonspecific. No erosions. Diffuse atheromatous plaque disease throughout the aorta and branch vessels, without aneurysmal dilatation. Procedure Note Edgardo Olvera MD - 12/18/2024 INDICATION: Abdominal pain, hernia suspected CT abdomen and pelvis with contrast Comparison: None provided Findings: Esophageal mural thickening with decompression, nonspecific. Tiny paraesophageal nodes, nonspecific. Atelectasis. Coronary artery calcifications. Hepatomegaly with steatosis Contracted gallbladder. Bilateral perinephric stranding, nonspecific. Bilateral hypodense renal cysts. No urolithiasis or hydronephrosis. No bowel obstruction, pneumoperitoneum, or pneumatosis. Fat containing inguinal hernias. Prominent inguinal nodes, may be reactive. Normal appendix. Osteopenia. Focal left-sided 1.1 cm lucency noted at T12, nonspecific. No erosions. Diffuse atheromatous plaque disease throughout the aorta and branch vessels, without aneurysmal dilatation. IMPRESSION: No acute findings. Additional findings as described. This document has been electronically signed by: Edgardo Olvera MD on 12/18/2024 17:40:[address] PROCEDURES Final R esult * CBC auto differential (12/18/2024 2:07 PM EDT) WBC 8.6 4.8 - 10.8 K/mcL LAB HEMETOLOGY METHOD 12/18/2024 2:28 PM EDT [facility] RBC 5.20 4.50 - 5.50 M/mcL LAB HEMETOLOGY METHOD 12/18/2024 2:28 PM EDT [facility] Hemoglobin 14.4 13.5 - 17.5 g/dL LAB HEMETOLOGY METHOD 12/18/2024 2:28 PM EDT [facility] Hematocrit 43.4 42.0 - 54.0 % LAB HEMETOLOGY METHOD 12/18/2024 2:28 PM EDT [facility] MCV 84.1 79.0 - 98.0 FL LAB HEMETOLOGY METHOD 12/18/2024 2:28 PM EDT [facility] MCH 27.9 27.0 - 32.0 pcg LAB HEMETOLOGY METHOD 12/18/2024 2:28 PM EDT [facility] MCHC 33.2 32.0 - 37.0 g/dL LAB HEMETOLOGY METHOD 12/18/2024 2:28 PM [facility] RDW 13.2 11.0 - 15.0 % LAB HEMETOLOGY METHOD 12/18/2024 2:28 PM EDT [facility] Platelets 185 130 - 400 K/mcL LAB HEMETOLOGY METHOD 12/18/2024 2:28 PM T [facility] MPV 9.4 7.0 - 11.0 FL LAB HEMETOLOGY METHOD 12/18/2024 2:28 PM [facility] NRBC 0.0 <1.0 % LAB HEMETOLOGY METHOD 12/18/2024 2:28 PM EDT [facility] NRBC Absolute 0.00 <0.10 K/mcL LAB HEMETOLOGY METHOD 12/18/2024 2:28 PM [facility] Neutrophils Relative 63.4 % LAB HEMETOLOGY METHOD 12/18/2024 2:28 PM [facility] Lymphocytes Relative 29.2 % LAB HEMETOLOGY METHOD 12/18/2024 2:28 PM [facility] Monocytes Relative 5.8 % LAB HEMETOLOGY METHOD 12/18/2024 2:28 PM [facility] Eosinophils Relative 0.9 % LAB HEMETOLOGY METHOD 12/18/2024 2:28 PM [facility] Basophils Relative 0.5 % LAB HEMETOLOGY METHOD 12/18/2024 2:28 PM [facility] Immature Granulocytes Relative 0.2 % LAB HEMETOLOGY METHOD 12/18/2024 2:28 PM EDT [facility] Neutrophils Absolute 5.43 1.50 - 7.00 K/mcL LAB HEMETOLOGY METHOD 12/18/2024 2:28 PM EDT [facility] Lymphocytes Absolute 2.50 1.00 - 5.00 K/mcL LAB HEMETOLOGY METHOD 12/18/2024 2:28 PM EDT [facility] Monocytes Absolute 0.50 0.20 - 1.00 K/mcL LAB HEMETOLOGY METHOD 12/18/2024 2:28 PM EDT [facility] Eosinophils Absolute 0.08 0.00 - 0.50 K/mcL LAB HEMETOLOGY METHOD 12/18/2024 2:28 PM EDT [facility] Basophils Absolute 0.04 0.00 - 0.20 K/mcL LAB HEMETOLOGY METHOD 12/18/2024 2:28 PM EDT [facility] Immature Granulocytes Absolute 0.02 0.00 - 0.03 K/mcL LAB HEMETOLOGY METHOD 12/18/2024 2:28 PM EDT [facility] Blood Venous blood specimen / Unknown Venipuncture / Unknown 12/18/2024 2:07 PM EDT 12/18/2024 2:22 PM EDT Raúl JI LAB BLOOD ORDERABLES Grace augilera Result [facility] [address] [place] [address], * Magnesium (12/18/2024 2:07 PM EDT) Magnesium 2.0 1.9 - 2.6 mg/dL LAB CHEMISTRY METHOD 12/18/2024 3:57 PM EDT [facility] Blood Venous blood specimen / Unknown Venipuncture / Unknown 12/18/2024 2:07 PM EDT 12/18/2024 2:22 PM EDT Raúl JI LAB BLOOD ORDERABLES Grace l Result Performing Organization Address City/[facility] [address]/ZIP Co de Phone Number [facility] [address] [place] [address], [place] [phone] * Lipase (12/18/2024 2:07 PM EDT) [facility] Lipase 23 13 - 75 unit/L LAB CHEMISTRY METHOD 12/18/2024 3:03 PM EDT [facility] Blood Venous blood specimen / Unknown Venipuncture / Unknown 12/18/2024 2:07 PM EDT 12/18/2024 2:22 PM EDT Raúl JI LAB BLOOD ORDERABLES Grace l Result Performing Organization Address [facility] [address]/ZIP Co de Phone Number [facility] [address] [place] [address], [place] [phone] * (ABNORMAL) Comprehensive metabolic panel (12/18/2024 2:07 PM EDT) [facility] Sodium 136 133 - 145 mmol/L LAB CHEMISTRY METHOD 12/18/2024 2:45 PM EDT [facility] Potassium 3.2(L) 3.5 - 5.5 mmol/L LAB CHEMISTRY METHOD 12/18/2024 2:45 PM EDT [facility] Chloride 104 96 - 110 mmol/L LAB CHEMISTRY METHOD 12/18/2024 2:45 PM EDT [facility] CO2 26 21 - 32 mmol/L LAB CHEMISTRY METHOD 12/18/2024 2:45 PM EDT [facility] Anion Gap 6 3 - 11 LAB CHEMISTRY METHOD 12/18/2024 2:45 PM EDT [facility] Glucose 160(H) 70 - 100 mg/dL LAB CHEMISTRY [facility]24 [facility] BUN 15 5 - 25 mg/dL LAB CHEMISTRY METHOD 12/18/2024 2:45 PM [facility] Creatinine 1.15 0.70 - 1.30 mg/dL LAB CHEMISTRY METHOD 12/18/2024 2:45 PM [facility] eGFR 75 >=60 mL/min/1. 73m2 LAB CHEMISTRY METHOD 12/18/2024 2:45 PM [facility] Comment:Calculation based on the Chronic Kidney Disease Epidemiology Collaboration (CKD-EPI) equation refit without adjustment for race. BUN/Creatinine Ratio 13.0 LAB CHEMISTRY METHOD 12/18/2024 2:45 PM [facility] Calcium 8.9 8.5 - 10.5 mg/dL LAB CHEMISTRY METHOD 12/18/2024 2:45 PM [facility] AST (SGOT) 41 10 - 42 unit/L LAB CHEMISTRY METHOD 12/18/2024 2:45 PM [facility] ALT (SGPT) 78(H) 10 - 60 unit/L LAB CHEMISTRY METHOD 12/18/2024 2:45 PM [facility] Alkaline Phosphatase 63 42 - 121 unit/L LAB CHEMISTRY METHOD 12/18/2024 2:45 PM [facility] Total Protein 7.1 6.0 - 8.0 g/dL LAB CHEMISTRY METHOD 12/18/2024 2:45 PM [facility] Albumin 3.9 3.2 - 5.0 g/dL LAB CHEMISTRY METHOD 12/18/2024 2:45 PM [facility] Total Bilirubin 0.5 0.0 - 1.4 mg/dL LAB CHEMISTRY METHOD 12/18/2024 2:45 PM [facility] Blood Venous blood specimen / Unknown Venipuncture / Unknown 12/18/2024 2:07 PM EDT 12/18/2024 2:22 PM EDT us Raúl JI LAB BLOOD ORDERABLES Grace l Result [facility] [address] [place] [address], [place] [phone] * Urinalysis with reflex microscopic and culture (12/18/2024 2:05 PM EDT) Specific [place] Urine 1.016 1.003 - 1.030 LAB URINALYSIS - AUTOMATED METHOD 12/18/2024 2:28 PM EDT [facility] pH, Urine 6.5 5.0 - 8.0 pH LAB URINALYSIS - AUTOMATED METHOD 12/18/2024 2:28 PM [facility] Leukocytes, Urine Negative Negative LAB URINALYSIS - AUTOMATED METHOD 12/18/2024 2:28 PM [facility] Nitrite, Urine Negative Negative LAB URINALYSIS - AUTOMATED METHOD 12/18/2024 2:28 PM [facility] Protein, Urine Negative <=Trace mg/dL LAB URINALYSIS - AUTOMATED METHOD 12/18/2024 2:28 PM [facility] Glucose, Urine Negative Negative mg/dL LAB URINALYSIS - AUTOMATED METHOD 12/18/2024 2:28 PM [facility] Ketones, Urine Negative Negative mg/dL LAB URINALYSIS - AUTOMATED METHOD 12/18/2024 2:28 PM [facility] Urobilinogen, Urine 0.2 0.2 - 1.0 mg/dL LAB URINALYSIS - AUTOMATED METHOD 12/18/2024 2:28 PM [facility] Bilirubin, Urine Negative Negative LAB URINALYSIS - AUTOMATED METHOD 12/18/2024 2:28 PM [facility] Blood, Urine Negative Negative LAB URINALYSIS - AUTOMATED METHOD 12/18/2024 2:28 PM [facility] Urine Urine specimen obtained by clean catch procedure / Unknown Non-blood Collection / Unknown 12/18/2024 2:05 PM EDT 12/18/2024 2:21 PM EDT Raúl JI LAB URINE ORDERABLES Grace l Result Performing Organization Address City/[facility] [address]/ZIP Co de Phone Number [facility] [address] [place] [address], [place] [phone] * Browne urine culture tube (12/18/2024 2:05 PM EDT) Extra Tube Hold for add-ons. 12/18/2024 4:01 PM EDT [facility] Comment:Auto resulted. Urine Urine specimen obtained by clean catch procedure / Unknown Non-blood Collection / Unknown 12/18/2024 2:05 PM EDT 12/18/2024 2:21 PM EDT [facility] ORDERABLES Grace l Result Performing Organization Address [facility] [address]/ZIP Co de Phone Number [facility] [address] [place] [address], [place] [phone] from Last 3 Months Insurance [facility] MEDIC[facility] Member Subscriber Plan / Payer (Ef fective 2023-Present) Name:MARGARITO HERNANDEZ Relation to Subscriber:Self Name:Margarito Hernandez Payer ID:[id number] Group ID:[id number] Type:Not on file Address: [place] [address] [place] [address] Care Teams Superintendent Geophysical Laboratory Relationship Specialty Start Date End Date Hina Evans MD [address] [place] [address] [place] [address] PCP - General Family Medicine 12/18/24
--- OUTSIDE RECORDS SUMMARY | 2025-02-17 14:29 | XMS_ITS | Encounter Summary ---
Author Organization [employer] Address [address] [facility] 7t [place] [address] Care Team Providers Care Trestle Mechanic Name Role Phone Hina Evans MD Primary Care Provider [phone] John Hartley PharmD Unavailable [phone] Reason for Visit * Reason Comments Med Refill Encounter Details Date Type Department Care Team ([facility] st Contact Info) Description 10/26/2024 Refill [facility] [address] [place], [place] [phone] Hina Evans MD [address] [place], [place] [phone] Social History Tobacco Use Types Packs/Day Years [...] Info) Description 02/25/2025 10:30 AM EDT Telemedicine [facility] [address] [place] [phone] John Hartley PharmD [address] [place] [phone] 03/30/2025 10:15 AM EST Office Visit [facility] [address] [place] [phone] Hina Evans MD [address] [place] [phone] documented as of this encounter Goals Goal [...] documented as of this encounter Care Teams Trestle Mechanic Relationship Specialty Start Date End Date Hina Evans MD [address] [place] [phone] PCP - General Family Medicine 05/05/18 John Hartley, PharmD [address] [place] [address] Pharmacist Internal Medicine 09/10/23 documented as of this encounter
--- OUTSIDE RECORDS SUMMARY | 2025-02-17 14:29 | XMS_ITS | Encounter Summary ---
Author Organization [employer] Address [address] [facility] 7t [place] [address] Care Team Providers Care Loan Processor Name Role Phone Hina Evans MD Primary Care Provider [phone] John Hartley PharmD Unavailable [phone] Encounter Details Date Type Department Care Team ([facility] Contact Info) Description 04/04/2023 Orders Only [facility] [address] [place] [address] [phone] Hina Evans MD [address] [place] [address] [phone] Hypertension, unspecified type (Primary Dx); Asthma with [...] Upcoming Encounters Date Type Department Care Team ([facility] Contact Info) Description 02/25/2025 10:30 AM EDT Telemedicine [facility] [address] [place] [address] [phone] John Hartley, PharmD [address] [place] [address] 03/30/2025 10:15 AM EST Office Visit [facility] [address] [place] [phone] Hina Evans MD [address] [place] [phone] Scheduled Orders Name Type Priority Associated Diagnoses [...] 10:15 AM EDT) Triglycerides 215(H) <150 mg/dL [facility] Comment:Desirable Triglyceri de: less than 150 mg/dLBorderline High Triglyceride 150-199 mg/dLHigh Triglyceride: 200-499 mg/dLVery High Triglyceride: greater than or equal to 5OO mg/dL Cholesterol 191 <200 mg/dL [facility] Comment:Desirable Cholestero l: less than 200 mg/dLBorderline High Cholesterol: 200-239 mg/dLHigh Cholesterol: greater than 239 mg/dL LDL Cholesterol Calculated 96 <100 mg/dL [facility] Comment:Desirable LDL: less than 100 mg/dLNear Optimal/Above Optimal LDL: 110- 129 mg/dLBorderline High LDL: 130-159 mg/dLHigh LDL: 160-189 mg/dLVery High LDL: greater than or equal to 190 mg/dL HDL Cholesterol 52 >40 mg/dL [facility] Comment:Desirable HDL: great er than 40 mg/dL Note: This HDL assay may give artificially low results in patients with liver disease. Blood 02/10/2024 10:1 5 AM EDT 02/10/2024 11:35 AM EDT Hina Evans MD LAB BLOOD ORDERABLES Final Resul t [facility] [address] [place] [address] [phone] documented in this encounter Visit Diagnoses Diagnosis Hypertension, unspecified type- Primary Asthma with COPD (CMS/HCC) (HCC) Chronic low back pain, unspecified back pain laterality, unspecified whether sciatica present Gastroesophageal reflux disease, unspecified whether esophagitis present Dyslipidemia Other and unspecified hyperlipidemia documented in this encounter Care Teams Loan Processor Relationship Specialty Start Date End Date Hina Evans MD [address] [place] [address] PCP - General Family Medicine 05/05/18 John Hartley, BrianD [address] [place] [phone] Pharmacist Internal Medicine 09/10/23 documented as of this encounter
--- OUTSIDE RECORDS SUMMARY | 2025-02-17 14:29 | XMS_ITS | Encounter Summary ---
Author Organization [employer] Address [address] [facility] [address] 7t [place] [address] Care Team Providers Care Biztalk Architect Name Role Phone Hina Evans MD Primary Care Provider John Hartley PharmD Unavailable [phone] Reason for Visit * Reason Onset Date Comments Durable Medical Equipment 06/24/2023 Encounter Details Date Type Department Care Team ([facility] st Contact Info) Description 06/24/2023 Telephone [facility] [address] [place], [place] [phone] Hina Evans MD [address] [place], [place] [phone] Durable Medical Equipment Social History Tobacco Use [...] message be;low if Rx is sent to [facility] pharmacy pt can receive with a 0 co pay , please review, * Telephone Encounter - Lincoln Delacruz - 06/24/2023 1:02 PM EST Tc from pt requesting status on Blood Pressure machine discussed in visit with pcp 05/26. Please contact pt at [phone] Tajik Speaker documented in this encounter Plan of Treatment Upcoming Encounters Date Type Department Care Team (Late st Contact Info) Description 02/25/2025 10:30 AM EDT Telemedicine [facility] [address] [place] [phone] John Hartley, PharmD [address] [place] [address] 03/30/2025 10:15 AM EST Office Visit [facility] [address] [place] [phone] Hina Evans MD [address] [place] [address] documented as of this encounter Visit Diagnoses Not on filedocumented in this encounter Care Teams Biztalk Architect Relationship Specialty Start Date End Date Hina Evans MD [address] [place] [phone] PCP - General Family Medicine 05/05/18 John Hartley, BrianD [address] [place] [address] Pharmacist Internal Medicine 09/10/23 documented as of this encounter
--- OUTSIDE RECORDS SUMMARY | 2025-02-17 14:29 | XMS_ITS | Encounter Summary ---
Author Organization [email or web address] Address [address] [facility] 7t [place] [address] Care Team Providers Care Paper Stacker Name Role Phone Hina Evans MD Primary Care Provider [phone] John Hartley PharmD Unavailable Reason for Referral * Consultation (Routine) - Closed Specialty Diagnoses / Procedures Referred By Contac t Referred To Contact Pharmacy Diagnoses Primary hypertension Asthma with COPD (CMS/HCC) ([facility] Hina Evans MD [address] [place] [address] Phone: tel: fax: Referral ID Status Reason Start Date Expiration Date V isits Requested Visits Authorized [id number] Closed Consult and Treat 02/04/2024 02/03/2025 6 6 * Consultation (Routine) - Closed Specialty Diagnoses / Procedures Referred By Contac t Referred To Contact Pharmacy Diagnoses Tobacco dependence iHna Evans MD [address] [place] [address] Phone: tel: fax: Referral ID Status Reason Start Date Expiration Date V isits Requested Visits Authorized [id number] Closed Consult and Treat 02/04/2024 02/03/2025 1 1 Encounter Details Date Type Department Care Team ([facility] st Contact Info) Description 02/04/2024 Orders Only [facility] [address] [place] [address] Hina Evans MD [address] [place] [address] Primary hypertension (Primary Dx); Asthma with COPD [...] Upcoming Encounters Date Type Department Care Team ([facility] st Contact Info) Description 02/25/2025 10:30 AM EDT Telemedicine [facility] [address] [place] [address] John Hartley, [place] [address] 03/30/2025 10:15 AM EST Office Visit [facility] [place] [address] Hina Evans MD [address] [place] [address] Scheduled Referrals Name Type Priority Associated Diagnoses Orde r Schedule Referral to Pharmacy Smoking Cessation Program Outpatient Referral Routine Tobacco dependence Expected: 02/04/2024 (Approximate), Expires: 02/03/2025 Referral to Pharmacy CDTM Outpatient Referral Routine Primary hypertension Asthma with COPD (CMS/HCC) Ordered: 02/04/2024 documented as of this encounter Goals Goal Patient Goal Type Associated Problems Recent Progress Patient-Stated? Author Blood Pressure < 140/90 Blood Pressure 138/76( 025 11:07 AM EDT) No John Hartley, PharmD documented as of this encounter Visit Diagnoses Diagnosis Primary hypertension- Primary Unspecified essential hypertension Asthma with COPD (CMS/HCC) (HCC) Tobacco dependence Tobacco use disorder documented in this encounter Additional Health Concerns Assessment Noted Time PHQ-9 Depression Total Score: 9 07/07/19 24 3:03 PM EST documented as of this encounter Care Teams Paper Stacker Relationship Specialty Start Date End Date Hina [place] [address] PCP - General Family Medicine 05/05/18 John Hartley, PharmD [facility] [place] [address] Pharmacist Internal Medicine 09/10/23 documented as of this encounter
--- OUTSIDE RECORDS SUMMARY | 2025-02-17 14:29 | XMS_ITS | Encounter Summary ---
Author Organization [employer] Address [address] [facility] [address] 7t [place] [address] Care Team Providers Care Geological Engineer Name Role Phone Hina Evans MD Primary Care Provider [phone] John Hartley PharmD Unavailable [phone] Reason for Visit * Reason Onset Date Comments Results 05/28/2023 Encounter Details Date Type Department Care Team ([facility] st Contact Info) Description 05/28/2023 Telephone [facility] 230 [place], [place] [phone] Hina Evans MD 230 [place], [place] [phone] Results Social History Tobacco Use Types Packs/Day [...] Miscellaneous Notes * Telephone Encounter - Kandace Koeing - 05/28/2023 9:10 AM EST TC from pt requesting call back regarding Results. Type of results: labs Date when done: 05/26 Please contact pt at [phone] (chadian) documented in this encounter Plan of Treatment Upcoming Encounters Date Type Department Care Team (Late st Contact Info) Description 02/25/2025 10:30 AM EDT Telemedicine [facility] [address] [place] [phone] John Hartley, PharmD [address] [place] [address] 03/30/2025 10:15 AM EST Office Visit [address] [address] Hina Evans MD [address] [place] [address] documented as of this encounter Visit Diagnoses Not on filedocumented in this encounter Care Teams Geological Engineer Relationship Specialty Start Date End Date Hina Evans MD [address] [place] [address] PCP - General Family Medicine 05/05/18 John Hartley, PharmD [address] [place] [address] Pharmacist Internal Medicine 09/10/23 documented as of this encounter
--- OUTSIDE RECORDS SUMMARY | 2025-02-17 14:29 | XMS_ITS | Encounter Summary ---
Author Organization [employer] Address [address] [facility] [address] 7t [place] [address] Care Team Providers Care Radiologic Electronic Specialist Name Role Phone Hina Evans MD Primary Care Provider [phone] John Hartley PharmD Unavailable [phone] Encounter Details Date Type Department Care Team (Late st Contact Info) Description 07/04/2023 Orders Only [facility] [address] [place], [place] [phone] Hina Evans MD 230 [place], [place] [phone] Hypertension, unspecified type (Primary Dx) Social History [...] AM EDT documented as of this encounter Functional Status * Over the past 2 weeks, how often have you been bothered by any of the following problems? Question Answer Date of Assessment Author Patient Health Questionnaire-2 Score 6 08/2023 3:03 PM Matthew Bejarano * If you checked off any problems on this questionnaire so far, Question Answer Date of Assessment Author How difficult have these problems made it for you to do your work, take care of things at home, or get along with other people? Somewhat difficult 07/07/2023 3:03 PM Matthew Bejarano * Over the last 2 weeks, how often have you been bothered by any of the following problems? Question Answer Date of Assessment Author Feeling nervous, anxious, or on edge 1 08/2023 3:03 PM Matthew Bejarano Not being able to stop or co ntrol worrying 2 07/07/2023 3:03 PM Matthew Bejarano Worrying too much about diff erent things 2 07/07/2023 3:03 PM Matthew Bejarano Trouble relaxing 0 07/07/2023 3:03 PM Matthew Alfaro Being so restless that it is hard to sit still 0 07/07/2023 3:03 PM Matthew Bejarano Becoming easily annoyed or irritable 0 08/2023 3:03 PM Matthew Bejarano Feeling afraid as if somethi ng awful might happen 3 07/07/2023 3:03 PM Matthew Bejarano LLUVIA-7 Total Score 8 07/07/2023 3:03 PM Matthew Bejarano * Over the past 2 weeks, how often have you been bothered by any of the following problems? Question Answer Date of Assessment Author Little interest or pleasure in doing things Nearly every day 07/07/2023 3:03 PM Lorie Bejarano Feeling down, depressed, or hopeless Nearly every day 07/07/2023 3:03 PM Matthew Bejarano Trouble falling or staying asleep, or sleeping too much Not at all 07/07/2023 3:03 PM Matthew Bejarano Feeling tired or having little energy Not at all 07/07/2023 3:03 PM Matthew Bejarano Poor appetite or overeating Several days 07/07/2023 3:03 PM Matthew Bejarano Feeling bad about yourself - or that you are a failure or have let yourself or your family down Not at all 07/07/2023 3:03 PM Matthew Bejarano Trouble concentrating on things, such as reading the newspaper or watching television More than half the days 07/07/2023 3:03 PM Matthew Bejarano Moving or speaking so slowly that other people could have noticed? Or the opposite - being so fidgety or restless that you have been moving around a lot more than usual. Not at all 07/07/2023 3:03 PM Matthew Bejarano Thoughts that you would be better off or hurting yourself in some way Not at all 07/07/2023 3:03 PM Matthew Bejarano Patient Health Questionnaire-9 Score 9 07/07/2023 3:03 PM Matthew Bejarano documented as of this encounter Plan of Treatment Upcoming Encounters Date Type Department Care Team (Late st Contact Info) Description 02/25/2025 10:30 AM EDT Telemedicine [facility] [address] [place], [place] [phone] John Hartley, PharmD [address] [place] [address] 03/30/2025 10:15 AM EST Office Visit [facility] [address] [place] [address] [phone] Hina Evans MD [address] [place] [address] [phone] documented as of this encounter Visit Diagnoses Diagnosis Hypertension, unspecified type- Primary documented in this encounter Care Teams Radiologic Electronic Specialist Relationship Specialty Start Date End Date Hina Evans MD [address] [place] [address] [phone] PCP - General Family Medicine 05/05/18 John Hartley, PharmD [address] [place] [address] [phone] Pharmacist Internal Medicine 09/10/23 documented as of this encounter
--- OUTSIDE RECORDS SUMMARY | 2025-02-17 14:30 | XMS_ITS | Encounter Summary ---
Author Organization [employer] Address [address] [facility] 7t [place] [address] Care Team Providers Care Fitter Mechanic Name Role Phone Hina Evans MD Primary Care Provider [phone] John Hartley PharmD Unavailable [phone] Reason for Referral * Consultation (Routine) - Authorized Specialty Diagnoses / Procedures Referred By Contac t Referred To Contact Pharmacy Diagnoses Primary hypertension Asthma with COPD (CMS/HCC) (HCC) Hina Evans MD [address] [place] [phone] Phone: tel: fax: Referral ID Status Reason Start Date Expiration Date Visits Requested Visits Authorized [id number] Authorized Consult and Treat 02/08/2025 02/08/2026 6 6 Encounter Details Date Type Department Care Team ([facility] st Contact Info) Description 02/08/2025 Orders Only [facility] [address] [place] [address] [phone] Hina Evans MD [address] [place] [address] [phone] Primary hypertension (Primary Dx); Asthma with COPD (CMS/HCC) (HCC) Social History Tobacco Use Types Packs/Day Years [...] Info) Description 02/25/2025 10:30 AM EDT Telemedicine [facility] [address] [place] [phone] John Hartley, BrianD [address] [place] [address] 03/30/2025 10:15 AM EST Office Visit [facility] [address] [place] [phone] Hina Evans MD [address] [place] [address] Scheduled Referrals Name Type Priority Associated Diagnoses Orde r Schedule Referral to Pharmacy CDTM Outpatient Referral Routine Primary hypertension Asthma with COPD ([facility]) ([facility]) Ordered: 02/08/2025 documented as of this encounter Goals Goal Patient Goal Type Associated Problems Recent Progress Patient-Stated? Author Blood Pressure < 140/90 Blood Pressure 138/76( 025 11:07 AM EDT) No John Hartley, PharmD documented as of this encounter Visit Diagnoses Diagnosis Primary hypertension- Primary Unspecified essential hypertension Asthma with COPD ([facility]) ([facility]) documented in this encounter Additional Health Concerns Assessment Noted Time PHQ-9 Depression Total Score: 3 02/19/20 24 11:21 AM EDT documented as of this encounter Care Teams Fitter Mechanic Relationship Specialty Start Date End Date Hina Evans MD [address] [place] [address] PCP - General Family Medicine 05/05/18 John Hartley, PharmD [address] [place] [address] Pharmacist Internal Medicine 09/10/23 documented as of this encounter
--- OUTSIDE RECORDS SUMMARY | 2025-02-17 14:30 | XMS_ITS | Encounter Summary ---
Author Organization [email or web address] Address [address] [facility] 7t [place] [address] Care Team Providers Care Canal Boat Captain Name Role Phone Hina Evans MD Primary Care Provider [phone] John Hartley PharmD Unavailable [phone] Encounter Details Date Type Department Care Team ([facility] Contact Info) Description 03/13/[address] [facility] [address] [place], [place] [phone] Nicole Fitzpatrick LPN Social History Tobacco Use [...] Upcoming Encounters Date Type Department Care Team ([facility] Contact Info) Description 02/25/2025 10:[address] [facility] [address] [place] [address] [phone] John Hartley, PharmD [address] [place], [place] [phone] 03/30/2025 10:15 AM EST Office Visit [facility] [address] [place] [address] [phone] Hina Evans MD [address] [place] [address] documented as of this encounter Visit Diagnoses Not on filedocumented in this encounter Care Teams Canal Boat Captain Relationship Specialty Start Date End Date Hina Evans MD [address] [place] [address] PCP - General Family Medicine 05/05/18 John Hartley, BrianD [address] [place] [phone] Pharmacist Internal Medicine 09/10/23 documented as of this encounter
--- OUTSIDE RECORDS SUMMARY | 2025-02-17 14:30 | XMS_ITS | Encounter Summary ---
Author Organization [employer] Address [address] [facility] [address] 7t [place] [address] Care Team Providers Care Professional Caster Name Role Phone Hina Evans MD Primary Care Provider [phone] John Hartley PharmD Unavailable Encounter Details Date Type Department Care Team ([facility] st Contact Info) Description 02/08/2025 Orders Only [facility] [address] [place], [place] [phone] Hina Evans MD [address] [place], [place] [phone] Social History Tobacco Use Types Packs/Day Years [...] Info) Description 02/25/2025 10:30 AM EDT Telemedicine [facility] [address] [place] [phone] John Hartley, PharmD [address] [place] [address] 03/30/2025 10:15 AM EST Office Visit [facility] [address] [place] [address] Hina Evans MD [address] [place] [phone] documented as of this encounter Goals Goal [...] documented as of this encounter Care Teams Professional Caster Relationship Specialty Start Date End Date Hina Evans MD [address] [place] [phone] PCP - General Family Medicine 05/05/18 John Hartley, PharmD [address] [place] [address] Pharmacist Internal Medicine 09/10/23 documented as of this encounter
--- OUTSIDE RECORDS SUMMARY | 2025-02-17 14:30 | XMS_ITS | Clinical Summary ---
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 albuterol 108 (90 Base) MCG/ACT inhalerIndicati ons:Asthma with COPD (CMS/HCC) (FORMERLY [facility]) INHALE 2 PUFFS BY MOUTH EVERY 4 TO 6 HOURS NEEDED 8.5 g 1 06/26/19 23 Active Blood Pressure Monitor kit Check blood [...] MORNING 90 tablet 3 05/13/19 25 Active fluticasone (Flonase) 50 MCG/ACT nasal spray INSTILL 2 SPRAYS BY INTRANASAL ROUTE EVERY DAY 05/18/19 25 Active Fluticasone-Cullen meterol (Wixela Inhub) 500-50 MCG/ACT aerosol powder TAKE 1 PUFF BY MOUTH EVERY 12 HOURS 180 each 3 07/28/19 25 Active omeprazole (PriLOSEC) [address] capsule TAKE 1 CAPSULE BY MOUTH TWICE A DAY 180 capsule 12/17/19 25 Active mupirocin (Bactroban) 2 % ointment Apply to affected area once or twice daily 22 g 12/31/19 25 Active ketoconazole (NIZOral) 2 % shampoo Apply 5 to 10 mL to wet scalp, lather, leave on 3 to 5 minutes, and rinse; apply twice weekly for 2 weeks, then weekly hereafter. Faroese label. 120 mL 3 12/31/19 25 Active rosuvastatin (Crestor) 20 MG tablet Take 1 tablet (20 mg) by mouth Once per day. 90 tablet 3 12/31/19 25 026 Active Aspirin Low Dose 81 MG chewable tablet CHEW 1 TABLET BY MOUTH EVERY DAY 90 tablet 1 02/03/20 25 Active acetaminophen (Tylenol Extra Strength) 500 MG tabletIndicatio ns:Chronic low back pain, unspecified back pain laterality, unspecified whether sciatica present Take 1 tablet (500 mg) by mouth every 6 (six) hours if needed for mild pain for up to 14 days. 56 tablet 02/18/20 25 025 Active Diclofenac Sodium 1 % gelIndications: Chronic low back pain, unspecified back pain laterality, unspecified whether sciatica present Apply 1 g topically if needed in the morning, at noon, and at bedtime (pain). 100 g 02/18/20 25 025 Active gabapentin (Neurontin) 300 MG capsule Take 1 capsule (300 mg) by mouth at bedtime. 30 capsule 3 08/20/19 24 025 Discontinued( ed list cleanup (will not trigger notification to Pharmacy)) aspirin 81 MG chewable tablet CHEW 1 TABLET BY MOUTH EVERY DAY 90 tablet 1 07/01/19 25 025 Discontinued Active Problems Problem Noted Date Diagnosed Date Metabolic dysfunction-associ ated steatotic liver disease (MASLD) 01/03/2025 Assessment & Plan (01/03/2025 6:20 PM EDT): - Last liver test: 12/18/2024 At ED, AST 41, ALT 78, A PT 63, total bilirubin 0.5, albumin 3.9 - Last US / elastography: Not done yet. CT scan in ED in Dec 2024 showed hepatomegaly with steatosis. Contracted gallbladder. - FIB4 index 1.65 based on lab done on 03/31/2024 - GI: Previously [facility] - continue working on lifestyle modifications - continue surveillance study Hidradenitis suppurativa 01/03/2025 Assessment & Plan (01/03/2025 6:23 PM EDT): - Currently inflamed, but does not seem to be infected - Apply mupirocin - Reviewed signs and symptoms to be evaluated for need for antibiotic treatment Inguinal hernia 01/03/2025 Assessment & Plan (01/03/2025 6:29 PM EDT): - Incidental finding on CT scan at the recent ED visit in December 2024 - Fat-containing inguinal hernia and prominent inguinal lymph node noted - Asymptomatic currently Osteopenia 01/03/2025 Assessment & Plan (01/03/2025 6:31 PM EDT): - Incidental finding on CT scan in December 2024 - Weightbearing exercise - Encourage adequate calcium and vitamin D intake At increased risk for cardiovascular disease 02/2025 Assessment & Plan (01/03/2025 6:26 PM EDT): - on statin - started on ASA since he was hospitalized in Mar 2024 for headache, dizziness, and left facial weakness - most recent CT showed coronary artery calcification - work on lifestyle modifications Assessment & Plan (05/14/2024 7:11 AM EST): - on statin - started on ASA since he was hospitalized in Mar 2024 for headache, dizziness, and left facial weakness - work on lifestyle modifications Transaminitis 05/12/2024 Assessment & Plan (01/01/2025 12:55 AM EDT): - likely MASLDs - check lab and US if persistently elevated - work on lifestyle modifications - consider GLP1RA if he agrees Assessment & Plan (05/14/2024 7:09 AM EST): [...] otitis media, one week later admitted to [facility] 03/27-03/29/24 for left ear pain and left facial weakness. R/o CVA. 10mm lymph node in nasopharyngeal soft tissue noted on imaging recommending ENT follow up. He was discharged on meclazine. - Seen in [facility] ER 03/31 CT abnormal with possible [...] otitis media, one week later admitted to [facility] 03/27-03/29/24 for left ear pain and left facial weakness. R/o CVA. 10mm lymph node in nasopharyngeal soft tissue noted on imaging recommending ENT follow up. He was discharged on meclazine. - Seen in [facility] ER 03/31 CT abnormal with possible mastoiditis vs neoplasm vs other. ER contacted ENT who recommended clindamycin, prednisone and ENT follow up. - Seen by ENT on 04/06/24 and has a follow up in 6 weeks 04/14/24 Prediabetes 11/19/2023 Assessment & Plan (01/01/2025 12:55 AM EDT): - A1C 5.7% on 02/10/24 - Continue working on lifestyle modifications. Assessment & Plan (05/12/2024 1:08 PM EST): [...] intervention , [facility], and Patient to reach [...] (obstructive sleep apnea) 05/26/2023 Assessment & Plan (01/03/2025 6:23 PM EDT): - sleep study at [facility] in September 2022 - AutoPAP 7-20 cm H2O - Improve adherence to CPAP Assessment & Plan (05/12/2024 1:09 PM EST): - sleep study at [facility] in September 2022 - AutoPAP 7-20 cm H2O - Improve adherence to CPAP Assessment & Plan (02/19/2024 11:54 AM EDT): - sleep study at [facility] in September 2022 - AutoPAP 7-20 cm H2O - Improve adherence to CPAP Assessment & Plan (11/19/2023 10:47 AM EDT): - sleep study at [facility] in September 2022 - AutoPAP 7-20 cm H2O - Improve adherence to CPAP Assessment & Plan (08/20/2023 2:13 PM EDT): - sleep study at [facility] in September 2022 - AutoPAP 7-20 cm H2O Assessment & Plan (05/26/2023 5:26 AM EST): - sleep study at [facility] in September 2022 - AutoPAP 7-20 cm H2O Tobacco dependence 05/26/2023 Assessment & Plan (01/03/2025 6:25 PM EDT): - Seen by our pharmacist for smoking cessation. Quit in May 2023. - He has not smoked since then - LDCT at [facility] July 2022 Lung RADS 2 Assessment & Plan (05/12/2024 11:38 AM EST): - Work on smoking cessation - Seen by our pharmacist and encouraged to follow-up at [facility] clinic - Pt was prescribed nicotine gum / lozenges at last visit in Jan 2021, encouraged to try - LDCT at [facility] July 2022 Lung RADS 2 Assessment & Plan (02/19/2024 11:55 AM EDT): - Work on smoking cessation - Seen by our pharmacist and encouraged to follow-up at [facility]oking [facility]essation clinic - Pt was prescribed nicotine gum / lozenges at last visit in Jan 2021, encouraged to try - LDCT at [facility] July 2022 Lung RADS 2 Assessment & Plan (08/20/2023 2:11 PM EDT): - Work on smoking cessation - Seen by our pharmacist and encouraged to follow-up at [facility]essation clinic - Pt was prescribed nicotine gum / lozenges at last visit in Jan 2021, encouraged to try - LDCT at [facility] July 2022 Lung RADS 2 Assessment & Plan (05/26/2023 5:31 AM EST): - Work on smoking cessation - Seen by our pharmacist and encouraged to follow-up at Smoking Cessation clinic - Pt was prescribed nicotine gum / lozenges at last visit in Jan 2021, encouraged to try - LDCT at [facility] July 2022 Lung RADS 2 Headache 05/26/2023 Assessment & Plan (01/03/2025 6:34 PM EDT): -Neurologist: [facility], last seen in October 2022 -Current Dx: cervicogenic CONN and tension CONN -MRI March 2024 no infarct or mass -continue gabapentin. -previously tried baclofen, which was discontinued due to ineffectiveness -evaluated by [facility] provider, last seen on 05/14/23 after cervical X-ray and MRI in Feb 2023. Recommended to continue home exercise program. Assessment & Plan (08/20/2023 2:14 PM EDT): -Neurologist: [facility], last seen in October 2022 -Current Dx: cervicogenic CONN and tension CONN -MRI 04/03/20, no acute pathology, benign -continue gabapentin. -previously tried baclofen, which was discontinued due to ineffectiveness -evaluated by [facility] provider, last seen on 05/14/23 after cervical X-ray and MRI in Feb 2023. Recommended to continue home exercise program. Assessment & Plan (05/26/2023 5:33 AM EST): -Neurologist: [facility], last seen in October 2022 -Current Dx: cervicogenic CONN and tension CONN -MRI 04/03/20, no acute pathology, benign -continue gabapentin. -previously tried baclofen, which was discontinued due to ineffectiveness -evaluated by [facility] provider, last seen on 05/14/23 after cervical X-ray and MRI in Feb 2023. Recommended to continue home exercise program. 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 A head CT found intracranial atherosclerotic disease but no acute hemorrhage. DDx included Sam s palsy, Lyme, and CVA/TIA; comments noted that symptoms were most consistent with Sam s and the patient was discharged with prednisone and Valtrex. - 03/31/24 Seen in [facility] ED. Dx Sma's palsy. Rx prednisone. CT showed left otomastoiditis. Rx clindamycin. ([facility] hospitalization 03/27-03/29/24, presented with with left facial weakness, dizziness, and CONN. 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 Rx ASA, meclizine. Follow up with ENT). Assessment & Plan (08/22/2023 12:12 PM EDT): -04/05/18 the patient was seen at [facility] ED for c\o constant R-side headache, face swelling, numbness, and paresthesia x2 days. A head CT found intracranial atherosclerotic disease but no acute hemorrhage. DDx included Sam s palsy, Lyme, and CVA/TIA; comments noted that symptoms were most consistent with Sam s and the patient was discharged with [...] to 5 mg 04/14/24 Assessment & Plan (01/03/2025 6:30 PM EDT): -Goal BP < 130/80 per ACC/AHA guideline (Treatment threshold >= 130/80 ) - BP elevated today - EKG in Feb 2016, wnl. - Stress echo / nuclear stress test on 12/28/18 - no ischemia - Co-managed with our pharmacist - BP today is elevated, but reportedly normal at home - Continue HCTZ 25 mg daily, consider lowering the dose or discontinue if recurrent hypokalemia and/or hypocalcemia. His recent CT scan shows osteopenia. - Continue amlodipine 10 mg daily - Continue valsartan 40 mg daily - Consider combining 2 antihypertensives - Remain non-smoker - Optimize treatment for JAMILA and improve adherence to CPAP - Recommend low sodium diet and weight reduction - Continue working on lifestyle modification. Assessment & Plan (05/12/2024 12:34 PM EST): [...] care of his daughter Asthma with COPD ([facility]) 05/28/2012 Assessment & Plan (01/03/2025 6:23 PM EDT): - most recent exacerbation in Feb 2023, seen in [facility] ED and received steroid burst. - continue Advair - continue albuterol HFA - Pt stop smoking in May 2023, continue to maintain abstinence. Assessment & Plan (11/19/2023 10:48 AM EDT): - most recent exacerbation in Feb 2023, seen in [facility] ED and received steroid burst. - continue Advair - continue albuterol HFA - Pt stop smoking in May 2023, continue to maintain abstinence. Assessment & Plan (08/20/2023 2:13 PM EDT): - most recent exacerbation in Feb 2023, seen in [facility] ED and received steroid burst. - continue Advair - continue albuterol HFA Assessment & Plan (05/26/2023 5:27 AM EST): - most recent exacerbation in Feb 2023, seen in [facility] ED and received steroid burst. - continue Advair - continue albuterol HFA Chronic back pain 05/28/2012 Assessment & Plan (02/17/2025 11:16 AM EDT): Assessment & Plan (01/03/2025 6:21 PM EDT): - judicious use of gabapentin Assessment & Plan (02/19/2024 11:55 AM EDT): - judicious use of gabapentin Assessment & Plan (08/22/2023 12:06 PM EDT): - judicious use of gabapentin Dyslipidemia 05/28/2012 Assessment & Plan (01/03/2025 6:15 PM EDT): - Current medication: atorvastatin 40 mg at bedtime, will change it to rosuvastatin 20 mg since patient is not taking her atorvastatin - last lipid profile was in 05/12/24 TRIG 182; CHOL 128; LDL 43; HDL 49 - Treatment history: Patient perceives he is experiencing side effects (nonspecific symptoms) from atorvastatin, switching it to rosuvastatin - Continue working on modifiable risk management and maintain optimal BP control Assessment & Plan (05/14/2024 7:10 AM EST): [...] Gastroesophageal reflux disease 05/28/2012 Assessment & Plan (01/03/2025 6:27 PM EDT): - Continue omeprazole - simethicone prn - consider EGD evaluation if no improvement Assessment & Plan (11/19/2023 10:51 AM EDT): [...] Encounters Date Type Department Care Team Description 02/17/2025 10:15 AM EDT Office Visit [facility] [address] [place] [phone] Theresa Goldman NP Chronic low back pain, unspecified back pain laterality, unspecified whether sciatica present (Primary Dx); Elevated blood pressure reading in office with diagnosis of hypertension 02/17/2025 Travel 02/16/2025 Telephone [facility] [place] [address] Hina Evans MD Nurse Triage 02/10/2025 10:00 AM EDT Telemedicine [facility] [place] [address] John Hartley, Demarcus Primary hypertension (Primary Dx); Asthma with COPD ([facility]/HCC) ([facility]) 02/08/2025 Orders Only [facility] [place] [address] Hina Evans MD Primary hypertension (Primary Dx); Asthma with COPD ([facility]) ([facility]) 02/08/2025 Orders Only [facility] [place] [address] Hina Evans MD 02/02/2025 Refill [facility] [place] [address] Hina Evans MD 01/26/2025 Telephone [facility] [place] [address] Hina Evans MD 01/06/2025 Telephone [facility] [place] [address] Hina Evans MD Lung Screening to [facility] 12/30/2024 11:15 AM EDT Office Visit [facility] [place] [address] Hina Evans MD Primary hypertension (Primary Dx); Hypokalemia; Dyslipidemia; Transaminitis; Prediabetes; Dietary counseling; Exercise counseling; Class 1 obesity due to excess calories with serious comorbidity and body mass index (BMI) of 34.0 to 34.9 in adult; Metabolic dysfunction-associated steatotic liver disease (MASLD); Chronic low back pain, unspecified back pain laterality, unspecified whether sciatica present; Hidradenitis suppurativa; Asthma with COPD ([facility]); JAMILA (obstructive sleep apnea); Tobacco dependence; At increased risk for cardiovascular disease; Gastroesophageal reflux disease, unspecified whether esophagitis present; Inguinal hernia without obstruction or gangrene, recurrence not specified, unspecified laterality; Osteopenia, unspecified location; Cervicogenic headache 12/30/2024 Travel 12/24/2024 Telephone [facility] [address], [place] [phone] Hina Evans MD Medication Question 12/16/2024 Refill [facility] [address] [place] [address] Hina Evans MD from Last 3 Months Immunizations Immunization Administration Dates Next Due Hep A, ped/adol, [...] oid, preservative free, adsorbed 10/07/2008 Tdap 08/20/2023,07/29/2013 Zoster, Recombinant 07/21/2024 Social History Tobacco Use Types Packs/Day Years [...] Mass Index 34.36 02/17/2025 10:37 AM EDT Plan of Treatment Upcoming Encounters Date Type Department Care Team (Late st Contact Info) Description 02/25/2025 10:30 AM EDT Telemedicine [facility] [address], [place] [phone] John Hartley, PharmD [address] [place] [address] 03/30/2025 10:15 AM EST Office Visit [facility] [address], [place] [phone] Hina Evans MD [address] [place], [place] [phone] Health Maintenance Due Date Last Done Comments CT Colonography 1969 FIT DNA/Cologuard 1970 FIT 1970 FOBT 1970 Sigmoidoscopy 1970 Hepatitis A Vaccines (1 of 2 - Risk 2-dose series) 1988 11/07/2010, 02/14/2010 Hepatitis B Vaccines (1 of 3 - 19+ 3-dose series) 1988 11/07/2010, 05/08/2010, 02/14/2010 Zoster Vaccines (2 of 2) 09/15/2024 07/21/2024 Influenza Vaccine (#1) 2025 , 05/26/2023, 05/31/2022, Additional history exists Diabetes: Hemoglobin A1C 02/09/2025 024, 11/19/2023, 05/26/2023, Additional history exists Depression Screening 02/18/2025 02/19/2024, 02/19/20 24 Alcohol/Substance Use Screening 12/30/2025 12/30/2024 Disability Screening 12/30/2025 12/30/2024 SDOH Screening 12/30/2025 12/30/2024 Tobacco Screening 02/17/2026 02/17/2025 Lipid Panel 05/12/2029 05/12/2024, 1012/2023, 05/26/2023, Additional history exists DTaP/Tdap/Td Vaccines (3 - Td or Tdap) 08/19/2033 08/20/2023, 07/29/2013, 10/07/2008 Colonoscopy 03/10/2034 03/10/2024 Colorectal Cancer Screening 03/10/2034 RSV Patients and Patients Aged 60 years or older (1 - 1-dose 75+ series) 2044 HIV Screening Completed 07/20/2020 Hepatitis C Screening Completed 07/20/2020 Pneumococcal Vaccine: 50+ Years Completed 05/26/2023, 07/29/2013, 02/14/2010 COVID-19 Vaccine Completed 02/19/2024, 12/2020, 09/13/2020, Additional [...] 025 11:07 AM EDT) No John Hartley, Demarcus Procedures Procedure Name Priority Date/Time Associated Diagnosis Comments XR LUMBAR SPINE 2-3 VIEWS Routine 02/17/2025 11:55 AM EDT Chronic low back pain, unspecified back pain laterality, unspecified whether sciatica present LIPID PANEL, STANDARD Routine 05/12/2024 12:10 PM EST HM COLONOSCOPY Routine 03/10/2024 HEMOGLOBIN A1C Routine 02/10/2024 10:15 AM EDT Prediabetes ZZZ HISTORICAL HEPATITIS C AB W/REFL TO HCV RNA, QN, PCR Routine 07/20/2020 10:55 AM EDT HIV 1/2 ANTIGEN/ANTIBODY, FOURTH GENERATION W/RFL Routine 07/20/2020 10:55 AM EDT from Last 3 Months or Most Recently Relevant to Health Maintenance Results * XR Lumbar Spine 2-3 Views (02/17/2025 11:55 AM EDT) Anatomical Region Laterality Modality Spine, L-spine Radiographic Bridgett ging 02/17/2025 11:5 5 AM EDT Narrative 02/17/2025 12:15 PM EDT [address] [address] XRay Report Signed Patient: Margarito Hernandez MR#: [id number] 67 : 1970 Acct:[id number] Age/Sex: 54 / M ADM Date: 02/17/25 Loc: HO.HHCX Attending Dr: Theresa Goldman Ordering Physician: Theresa Goldman Date of Service: 02/17/25 Procedure(s): XR lumbar spine 2-3V Accession Number(s): [id number] cc: Theresa Goldman; Hina Evans MD Reason [...] 02/17/25 1212 DD/ 1155 TD/TT: 02/17/25 1159 Photography Assistant: MIRELA Procedure Note Donotuseinterpreter, Image - 02/17/[address] [place] [address] XRay Report Signed Patient: Margarito Hernandez MMR#: [id number] 66 : 1970Acct:[id number] Age/Sex: 54 / MADM Date: 02/17/25 Loc: HO.HHCX Attending Dr: Theresa Goldman Ordering Physician: Theresa Goldman Date of Service: 02/17/25 Procedure(s): XR lumbar spine 2-3V Accession Number(s): [id number] cc: Theresa Goldman; Hina Evans MD Reason [...] 02/17/25 1212 DD/ 1155 TD/TT: 02/17/25 1159 Photography Assistant: HB Theresa Goldman MICROBIOLOGY LAB ANALYST IMG XR PROCEDURES Edited Result - Final * (ABNORMAL) Lipid Panel, Standard (05/12/2024 12:10 PM EST) Triglycerides 182(H) <150 mg/dL [facility] Comment:Desirable Triglyceri de: less than 150 mg/dLBorderline High Triglyceride 150-199 mg/dLHigh Triglyceride: 200-499 mg/dLVery High Triglyceride: greater than or equal to 5OO mg/dL Cholesterol 128 <200 mg/dL [facility] Comment:Desirable Cholestero l: less than 200 mg/dLBorderline High Cholesterol: 200-239 mg/dLHigh Cholesterol: greater than 239 mg/dL LDL Cholesterol Calculated 43 <100 mg/dL [facility] Comment:Desirable LDL: less than 100 mg/dLNear Optimal/Above Optimal LDL: 110- 129 mg/dLBorderline High LDL: 130-159 mg/dLHigh LDL: 160-189 mg/dLVery High LDL: greater than or equal to 190 mg/dL HDL Cholesterol 49 >40 mg/dL [facility] Comment:Desirable HDL: great er than 40 mg/dL Note: This HDL assay may give artificially low results in patients with liver disease. 05/12/2024 12:1 0 PM EST 05/12/2024 1:04 PM EST Hina Evans MD LAB BLOOD ORDERABLES Final Resul t [facility] [address] [place] [phone] * Hm Colonoscopy (03/10/2024) Colonoscopy Normal Normal 03/10/2024 Prasad Provider HEALTH MAINTENANCE Final Result * Hemoglobin A1c (02/10/2024 10:15 AM EDT) Hemoglobin A1c 5.7 <6.0 % [facility] Comment:Hemoglobin A1C Refer ence Range Adults: 4.8 - 6.0 % Non diabetic: < 6.0 % Goal: < 7.0 %Additional Action Suggested: > 8.0 %Note: Hemoglobin A1c results are invalid for patients with abnormal amounts of HbF. Blood transfusions may impact the HbA1c concentration in the patient sample. Estimated Average Glucose 117 mg/dL [facility] Comment:eAG = Estimated ave rage glucose which is %A1C expressed asaverage glucose, using the formula of the [id number] Glucose study (ADAG), Diabetes Care, Vol.31,#8,Dec. 2007 Blood Venous blood specimen / Unknown 02/10/2024 10:15 AM EDT 02/10/2024 11:35 AM EDT Hina Evans MD LAB BLOOD ORDERABLES Final Resul t [facility] [address] [place] [phone] * HEPATITIS C AB W/REFL TO HCV RNA, QN, PCR (07/20/2020 10:55 AM EDT) HEPATITIS C ANTIBODY NON-REACT STACEY NON-REACT STACEY [facility] INDEX 0.01 <1.00 [facility] Comment: HCV antibody was non-reactive. There is no laboratory evidence of HCV infection. In most cases, no further action is required. However, if recent HCV exposure is suspected, a test for HCV RNA (test code 02435) is suggested. For additional information please refer to http://[employer].ActBlue/faq/RCQ35f9 (This link is being provided for informational/ educational purposes only.) 07/20/2020 10:5 5 AM EDT Hina Evans MD HISTORICAL/NON ORDERABLE LABS Fi nal Result Performing Organization Address City/[facility] Co de Phone Number [facility] [address] * HIV 1/2 ANTIGEN/ANTIBODY,FOURTH GENERATION W/RFL (07/20/2020 10:55 AM EDT) HIV-1/2 ANTIGEN AND ANTIBODIES, 4TH GENERATION W/ REFLEX NON-REACT STACEY NON-REACT STACEY [facility] Comment: HIV-1 antigen and HIV-1/HIV-2 antibodies were not detected. There is no laboratory evidence of HIV infection. PLEASE NOTE: This information has been disclosed to you from records whose confidentiality may be protected by state law. If your state requires such protection, then the state law prohibits you from making any further disclosure of the information without the specific written consent of the person to whom it pertains, or as otherwise permitted by law. A general authorization for the release of medical or other information is NOT sufficient for this purpose. For additional information please refer to http://education.[employer].Factery/faq/IYT102 (This link is being provided for informational/ educational purposes only.) The performance of this assay has not been clinically validated in patients less than 2 years old. 07/20/2020 10:5 5 AM EDT Hina Evans MD LAB BLOOD ORDERABLES Final Resul t [facility] [address] from Last 3 Months or Most Recently Relevant to Health Maintenance Insurance [id number] < 65 [place] [employer] [id number] Care Teams Oil Recovery Unit Operator Relationship Specialty Start Date End Date Hina Evans MD [address] [place] [id number] PCP - General Family Medicine 05/05/18 John Hartley, PharmD [address] [place] [address] Pharmacist Internal Medicine 09/10/23
--- OUTSIDE RECORDS SUMMARY | 2025-02-17 14:30 | XMS_ITS | Encounter Summary ---
Author Organization [employer] Address [address] [facility] 7t [place] [address] Care Team Providers Care Charity Fundraiser Name Role Phone Hina Evans MD Primary Care Provider [phone] John Hartley PharmD Unavailable [phone] Reason for Visit * Reason Onset Date Comments Nurse Triage 02/16/2025 Encounter Details Date Type Department Care Team ([facility] st Contact Info) Description 02/16/2025 Telephone [facility] [address] [place], [place] [phone] Hina Evans MD [address] [place], [place] [phone] Nurse Triage Social History Tobacco Use Types Packs/Day Years [...] encounter Miscellaneous Notes * Telephone Encounter - Jane Hudson RN - 02/16/2025 2:22 PM EDT Telephone call to pt initially with [facility] staff climate scientist [phone], then pt gave verbal consent to speak with who is with him and speaks Hungarian. Pt developed bilateral foot/ankle and finger pain x4 days. He states the pain is 4/10, describes it as burning and tenderness , worse with walking, and sometimes disappears with rest. Not taking any medications for it but pt today believes it could be sideeffect of rosuvastatin, for which he has been taking since December without issue. Denies any red/swollen/hard/warm to touch areas. He tried massaging his feet last night and it felt better. He would like to see a provider, scheduled for sick on site 02/17/25. Advised pt to discuss medication question with provider, to call back if pain becomes severe, unable to walk, or if develop redness/warmth/hard areas. Pt and verbalized understanding. Protocol Used: Leg Pain (Adult) Protocol-Based Disposition: See in Office or Video Visit within 3 Days Positive Triage Question: * Leg pain which occurs after walking a certain distance and disappears with rest, AND age > 50 * All higher-acuity triage questions were negative Care Advice Discussed: * Reassurance and Education - Leg Pain * Reasons To Call Back - Moderate pain (such as limping) lasts more than 3 days - Signs of infection occur (such as spreading redness, warmth, fever) - You become worse * Telephone Encounter - Tanvir Tomas - 02/16/2025 1:37 PM EDT Symptoms: Leg Pain - Not From Injury, Hand or Wrist Pain - Not From Injury, Constipation Outcome: Schedule an appointment to be seen within 24 hours Reason: Caller denied all higher acuity questions The caller accepted this outcome. Contact pt at [phone] documented in this encounter Plan of Treatment Upcoming Encounters Date Type Department Care Team (Late st Contact Info) Description 02/25/2025 10:30 AM EDT Telemedicine [facility] [address] [place] [phone] John Hartley, PharmD [address] [place] [phone] 03/30/2025 10:15 AM EST Office Visit [facility] [address] [place] [phone] Hina Evans MD [address] [place] [address] documented as of this encounter Goals Goal [...] documented as of this encounter Care Teams Charity Fundraiser Relationship Specialty Start Date End Date Hina Evans MD [address] [place] [phone] PCP - General Family Medicine 05/05/18 John Hartley, BrianD [address] [place] [phone] Pharmacist Internal Medicine 09/10/23 documented as of this encounter
--- OUTSIDE RECORDS SUMMARY | 2025-02-17 14:30 | XMS_ITS | Encounter Summary ---
Author Organization [employer] Address [address] [facility] [address] [place] [address] Care Team Providers Care Chain Repairer Name Role Phone Hina Evans MD Primary Care Provider [phone] John Hartley PharmD Unavailable [phone] Encounter Details Date Type Department Care Team (Latest Contact Info) Description 02/17/2025 Travel Social History Tobacco Use Types Packs/Day [...] housing situation today? I have shajibrittany david 12/30/[address] you [...] the past 12 months, has t he [employer] [place], gas, oil or water [employer] threatened to shut off services in your [...] 02/25/2025 10:30 AM EDT Telemedicine [facility] [address] [place] [phone] John Hartley, Demarcus [address] [place] [phone] 03/30/2025 10:15 AM EST Office Visit [facility] [address] [place] [phone] Hina Evans MD [address] [place] [phone] documented as of this encounter Goals Goal [...] documented as of this encounter Care Teams Chain Repairer Relationship Specialty Start Date End Date Hina Evans MD [address] [place] [phone] PCP - General Family Medicine 05/05/18 John Hartley, PharmD [address] [place] [address] [phone] Pharmacist Internal Medicine 09/10/23 documented as of this encounter
--- OUTSIDE RECORDS SUMMARY | 2025-02-17 14:30 | XMS_ITS | Encounter Summary ---
Author Organization [employer] Address [address] [facility] [address] 7[address] [place] [address] Care Team Providers Care Customer Service Voice Name Role Phone Hina Evans MD Primary Care Provider [phone] John Hartley PharmD Unavailable [phone] Encounter Details Date Type Department Care Team ([facility] Contact Info) Description 01/09/2023 Orders Only [facility] [address] [place], [place] [phone] Ayah Ann LPN Social History Tobacco Use [...] Upcoming Encounters Date Type Department Care Team ([facility] Contact Info) Description 02/25/2025 10:30 AM EDT Telemedicine [facility] [address] [place] [address] [phone] John Hartley, PharmD [address] [place], [place] [phone] 03/30/2025 10:15 AM EST Office Visit [facility] [address] [place] [address] [phone] Hina Evans MD [address] [place] [address] documented as of this encounter Visit Diagnoses Not on filedocumented in this encounter Care Teams Customer Service Voice Relationship Specialty Start Date End Date Hina Evans MD [address] [place] [phone] PCP - General Family Medicine 05/05/18 John Hartley, BrianD [address] [place] [phone] Pharmacist Internal Medicine 09/10/23 documented as of this encounter
== END 2025-02-17 11:18 | disposition home or self-care (01) ==
LOC: HO.HHCX 11:17
PROVIDERS: PCP Family Medicine; Visit Provider Nurse Practitioner
DX: M54.50 Low back pain, unspecified (principal); G89.29 Other chronic pain
CPT/HCPCS: 72100

== ENCOUNTER → 2025-02-17 11:48 | Outpatient (BNV) | payer OTHER, SELFPAY | PROVIDERS: PCP Family Medicine; Visit Provider Radiology Diagnostic Ultrasound | DX: M47.816 Spondylosis without myelopathy or radiculopathy, lumbar region (principal) | CPT/HCPCS: 72100 ==